=== PATIENT | male | born 1970 | race American Indian/Alaskan Native ===

== ENCOUNTER 2017-03-29 13:26 | Inpatient (IN) | payer MEDICARE, MEDICAID ==
[2017-03-29 13:29] VITALS: BMI 28.5
--- NOTE | 2017-03-29 13:36 | C.PDOC ---
History Of Present Illness 47 y/o male, with PMHx of DM, CHF, anemia, HTN, on dialysis Sunday, , Sunday, presents to ED with c/o SOB onset this week. Patient reports abdominal swelling and bloating, and bilateral lower extremity edema, for the last 2 weeks. Patient notes he was not dialyzed today because he was too short of breath. Notes shortness of breath worsens when walking and laying down. Denies fever, chills, chest pain, nausea, vomiting, or other associated symptoms. Time Seen by Provider: 03/29/17 13:36 Chief Complaint (Nursing): Abdominal Pain History Per: Patient History/Exam Limitations: no limitations Onset/Duration Of Symptoms: Days Current Symptoms Are (Timing): Still Present Location Of Pain/Discomfort: Diffuse Radiation Of Pain To:: None Associated Symptoms: denies: Fever, Chills, Back Pain, Chest Pain, Urinary Symptoms Recent travel outside of the [place]: No Past Medical History Reviewed: Historical Data, Nursing Documentation, Vital Signs Vital Signs: Last Vital Signs Temp 98.1 F 03/29/17 13:37 Pulse 70 03/29/17 13:37 Resp 18 03/29/17 13:37 BP 127/79 03/29/17 13:37 Pulse Ox 98 03/29/17 15:32 - Medical History PMH: Anemia, CHF, COPD, Depression, HTN, Hypercholesterolemia, Peripheral Edema , Chronic Kidney Disease - [facility] Procedures BYPASS LEFT BRACHIAL ARTERY TO UPPER ARM VEIN, OPEN APPROACH (05/24/15) EXTIRPATION OF MATTER FROM L BRACH ART, OPEN APPROACH (05/24/15) INSPECTION OF UPPER INTESTINAL TRACT, ENDO (06/23/16) PERFORMANCE OF URINARY FILTRATION, SINGLE (06/23/16) Family History: States: Unknown Family Hx - Social History Hx Alcohol Use: No Hx Substance Use: No - Immunization History Hx Tetanus Toxoid Vaccination: Yes Hx Influenza Vaccination: Yes Hx Pneumococcal Vaccination: Yes Review Of Systems Constitutional: Negative for: Fever, Chills Cardiovascular: Positive for: Edema (lower extremities). Negative for: Chest Pain, Palpitations Respiratory: Positive for: Shortness of Breath, SOB with Excertion. Negative for: Cough, Wheezing Gastrointestinal: Positive for: Other (abdominal bloating). Negative for: Nausea, Vomiting Musculoskeletal: Negative for: Back Pain Skin: Negative for: Rash Neurological: Negative for: Weakness Psych: Negative for: Anxiety Physical Exam - Physical Exam Appears: Non-toxic Skin: Warm, Dry Head: Normacephalic Eye(s): bilateral: Normal Inspection Oral Mucosa: Moist Neck: Supple Chest: Symmetrical Cardiovascular: Rhythm Regular Respiratory: Rales (bibasilar), No Rhonchi, No Wheezing Gastrointestinal/Abdominal: No Tenderness, Distention, No Guarding, No Rebound Back: Normal Inspection Extremity: Normal ROM, Pedal Edema (pitting edema bilateral), Other (L great toe aputation) Extremity: Bilateral: Atraumatic Pulses: Left Dorsalis Pedis: Normal, Right Dorsalis Pedis: Normal Neurological/Psych: Oriented x3, Normal Speech, Normal Cognition Gait: Unable To Assess ED Course And Treatment - Laboratory Results Result Diagrams: 03/29/17 14:10 03/29/17 14:10 ECG: Interpreted By Me, Viewed By Me ECG Rhythm: Sinus Rhythm (70), Nonspecific Changes O2 Sat by Pulse Oximetry: 98 (RA) Pulse Ox Interpretation: Normal Progress Note: EKG, bloodwork, Protonix. Disposition Discussed With DrJossue: Siva Natarajan Comment: accepted the pt on vt sservice and took over the care at 3:49PM Doctor Will See Patient In The: Hospital Counseled Patient/Family Regarding: Studies Performed, Diagnosis - Disposition Disposition: HOSPITALIZED Disposition Time: 13:36 Condition: GUARDED Forms: [facility] (Albanian) - POA Present On Arrival: Poor Glycemic Control - Clinical Impression Clinical Impression: Abdominal pain, ESRD (end stage renal disease) on dialysis, CHF (congestive heart failure) - Scribe Statement The provider has reviewed the documentation as recorded by the Scribe SM All medical record entries made by the Scribe were at my direction and personally dictated by me. I have reviewed the chart and agree that the record accurately reflects my personal performance of the history, physical exam, medical decision making, and the department course for this patient. I have also personally directed, reviewed, and agree with the discharge instructions and disposition. Decision To Admit - Pt Status Changed To: Hospital Disposition Of: Inpatient - Admit Certification Admit to Inpatient:: After my assessment, the patient will require hospitalization for at least two midnights. This is because of the severity of symptoms shown, intensity of services needed, and/or the medical risk in this patient being treated as an outpatient. - InPatient: Physician Admission Certification:: After my assessment, the patient will require hospitalization for at least two midnights. This is because of the severity of symptoms shown, intensity of services needed, and/or the medical risk in this patient being treated as an outpatient. - . Bed Request Type: Telemetry Admitting Physician: Siva Natarajan Patient Diagnosis: Abdominal pain, ESRD (end stage renal disease) on dialysis, CHF (congestive heart failure)
[2017-03-29 14:16] LABS: BASO % 0.8 % (0.0-2.0); EOS # 0.1 K/uL (0.0-0.7); HEMATOCRIT 33.1 % (35.0-51.0); LYMPH # 0.8 K/uL (1.0-4.3); LYMPH % 14.2 % (20.0-40.0); MEAN CORPUSCULAR HEMOGLOBIN 26.9 pg (27.0-31.0); MEAN CORPUSCULAR HGB CONC 32.3 g/dL (33.0-37.0); MEAN PLATELET VOLUME 10.1 fL (7.2-11.7); MONO # 0.7 K/uL (0.0-0.8); MONO % 12.1 % (0.0-10.0); NRBC % 0.1 % (0.0-2.0); RED CELL DISTRIBUTION WIDTH 17.5 % (11.5-14.5); WHITE BLOOD COUNT 5.5 K/uL (4.8-10.8)
[2017-03-29 14:24] LABS: POTASSIUM 4.5 mmol/L (3.6-5.2)
[2017-03-29 14:27] LABS: ALB/GLOB RATIO 0.7 (1.0-2.1); CALCIUM 7.8 mg/dl (8.6-10.4); TOTAL PROTEIN 8.4 g/dL (6.3-8.3)
[2017-03-29 14:28] LABS: MEAN CELL VOLUME 83.4 fL (80.0-94.0)
[2017-03-29 14:29] LABS: INR 1.3
--- NOTE | 2017-03-29 15:54 | RAD ---
HISTORY: sob COMPARISON: Chest x-ray performed 09/02/15 TECHNIQUE: Chest, one view. FINDINGS: LUNGS: Surgical clips project over the right lung apex. Biapical pleural thickening. Mild patchy opacity within the medial right lower lobe may reflect atelectasis or infiltrate. Mild pulmonary venous congestion. Please note that chest x-ray has limited sensitivity for the detection of pulmonary masses. PLEURA: No significant pleural effusion identified. No definite pneumothorax . CARDIOVASCULAR: Cardiomegaly. OSSEOUS STRUCTURES: Degenerative changes of the spine. VISUALIZED UPPER ABDOMEN: Unremarkable. OTHER FINDINGS: None. IMPRESSION: Mild patchy opacity within the medial right lower lobe may reflect atelectasis or infiltrate. Biapical pleural thickening. Mild pulmonary venous congestion. Cardiomegaly.
[2017-03-29] MEDS: (Novolog) Insulin Aspart, Recombinant 100 u/ml 10 ml vial SC SCH (18:00)
[2017-03-29] MEDS: Insulin Detemir 100 units/ml Vial (Levemir) SC SCH (22:40)
--- NOTE | 2017-03-30 00:06 | CP.PCM.HP ---
History of Present Illness - History of Present Illness History of Present Illness: CC: abdominal pain HPI: 47 y/o male, with PMHx of DM, CHF, anemia, HTN, on dialysis Sunday, , Sunday, presents to ED with c/o SOB onset this week. Patient reports abdominal swelling and bloating, and bilateral lower extremity edema, for the last 2 weeks. Patient notes he was not dialyzed today because he was too short of breath. Notes shortness of breath worsens when walking and laying down. Denies fever, chills, chest pain, nausea, vomiting, or other associated symptoms. Review of Systems - Review of Systems Systems not reviewed;Unavailable: Acuity of Condition - Constitutional Constitutional: Fatigue, Lethargy, Malaise - EENT Eyes: absent: As Per HPI, Blind Spots, Blurred Vision, Change in Vision, Decreased Night Vision, Diplopia, Discharge, Dry Eye, Exophthalmos, Floaters, Irritation, Itchy Eyes, Loss of Peripheral Vision, Pain, Photophobia, Requires Corrective Lenses, Sees Flashes, Spots in Vision, Tunnel Vision, Other Visual Disturbances, Loss of Vision, Other Nose/Mouth/Throat: absent: As Per HPI, Epistaxis, Nasal Congestion, Nasal Discharge, Nasal Obstruction, Nasal Trauma, Nose Pain, Post Nasal Drip, Sinus Pain, Sinus Pressure, Bleeding Gums, Change in Voice, Dental Pain, Dry Mouth, Dysphagia, Halitosis, Hoarsness, Lip Swelling, Mouth Lesions, Mouth Pain, Odynophagia, Sore Throat, Throat Swelling, Tongue Swelling, Facial Pain, Neck Pain, Neck Mass, Other - Cardiovascular Cardiovascular: Dyspnea on Exertion, Pedal Edema. absent: As Per HPI, Acrocyanosis, Chest Pain, Chest Pain at Rest, Chest Pain with Activity, Claudication, Diaphoresis, Dyspnea, Edema, Irregular Heart Rhythm, Pain Radiating to Arm/Neck/Jaw, Leg Edema, Leg Ulcers, Lightheadedness, Orthopnea, Palpitations, Paroxysmal Nocturnal Dyspnea, Radiating Pain, Rapid Heart Rate, Slow Heart Rate, Syncope, Other - Respiratory Respiratory: Dyspnea on Exertion. absent: As Per HPI, Cough, Dyspnea, Hemoptysis, Wheezing, Snoring, Stridor, Pain on Inspiration, Chest Congestion, Excessive Mucous Production, Change in Mucous Color, Pain with Coughing, Other - Gastrointestinal Gastrointestinal: Abdominal Pain Past Patient History - Past Medical History & Family History Past Medical History?: Yes - Past Social History Smoking Status: Former Smoker - CARDIAC Hx Congestive Heart Failure: Yes Hx Hypercholesterolemia: Yes Hx Hypertension: Yes Hx Peripheral Edema: Yes - PULMONARY Hx Chronic Obstructive Pulmonary Disease (COPD): Yes - NEUROLOGICAL Hx Neurological Disorder: No - HEENT Hx HEENT Problems: Yes Hx Blind: Yes (BLIND LEFT EYE) Hx Cataracts: Yes - RENAL Date of Last Dialysis Treatment: 03/29/17 - ENDOCRINE/METABOLIC Hx Endocrine Disorders: Yes Hx Diabetes Mellitus Type 2: Yes - HEMATOLOGICAL/ONCOLOGICAL Hx Anemia: Yes - INTEGUMENTARY Hx Dermatological Problems: Yes (DARK SPOTS GENERALIZED) - MUSCULOSKELETAL/RHEUMATOLOGICAL Hx Falls: No - GASTROINTESTINAL Hx Gastrointestinal Disorders: No - GENITOURINARY/GYNECOLOGICAL Hx Genitourinary Disorders: Yes Other/Comment: Kidney disease - PSYCHIATRIC Hx Substance Use: No - SURGICAL HISTORY Hx Surgeries: Yes - ANESTHESIA Hx Anesthesia: Yes Hx Anesthesia Reactions: No Hx Malignant Hyperthermia: No Meds Allergies/Adverse Reactions: Allergies Allergy/AdvReac Type Severity Reaction Status Date / Time mushroom Allergy Intermediate RASH Verified 03/29/17 13:30 Physical Exam - Constitutional Appears: No Acute Distress - Head Exam Head Exam: ATRAUMATIC, NORMAL INSPECTION, NORMOCEPHALIC - Eye Exam Eye Exam: EOMI, Normal appearance, PERRL Pupil Exam: NORMAL ACCOMODATION, PERRL - Respiratory Exam Respiratory Exam: Decreased Breath Sounds, Rales, Rhonchi - Cardiovascular Exam Cardiovascular Exam: REGULAR RHYTHM - GI/Abdominal Exam GI & Abdominal Exam: Normal Bowel Sounds, Soft, Tenderness - Extremities Exam Extremities exam: Positive for: pedal edema Additional comments: 2+ edema left big toe amputation Results - Vital Signs Recent Vital Signs: Last Vital Signs Temp 98.2 F 03/29/17 21:00 Pulse 71 03/29/17 21:15 Resp 18 03/29/17 21:00 BP 139/87 03/29/17 21:00 Pulse Ox 100 03/29/17 21:00 - Labs Result Diagrams: 03/29/17 14:10 03/29/17 14:10 Labs: Laboratory Results - last 24 hr 03/29/17 03/29/17 03/29/17 14:10 14:10 14:10 WBC 5.5 RBC 3.97 L Hgb 10.7 L Hct 33.1 L MCV 83.4 D MCH 26.9 L MCHC 32.3 L RDW 17.5 H Plt Count 115 L D MPV 10.1 Neut % (Auto) 70.9 Lymph % (Auto) 14.2 L [place] % (Auto) 12.1 H Eos % (Auto) 2.0 Baso % (Auto) 0.8 Neut # 3.9 Lymph # 0.8 L [place] # 0.7 Eos # 0.1 Baso # 0.0 Differential Comment PT 14.1 H INR 1.3 APTT 36 H Sodium Potassium Chloride Carbon Dioxide Anion Gap BUN Creatinine Est GFR ( Amer) Est GFR (Non-Af Amer) POC Glucose (mg/dL) Random Glucose Calcium Total Bilirubin AST ALT Alkaline Phosphatase Ammonia 21 NT-Pro-B Natriuret Pep Total Protein Albumin Globulin Albumin/Globulin Ratio Lipase 03/29/17 03/29/17 14:10 20:19 WBC RBC Hgb Hct MCV MCH MCHC RDW Plt Count MPV Neut % (Auto) Lymph % (Auto) [place] % (Auto) Eos % (Auto) Baso % (Auto) Neut # Lymph # [place] # Eos # Baso # Differential Comment PT INR APTT Sodium 135 Potassium 4.5 Chloride 94 L Carbon Dioxide 23 Anion Gap 21 H BUN 56 H Creatinine 9.6 H* Est GFR ( Amer) 7 Est GFR (Non-Af Amer) 6 POC Glucose (mg/dL) 163 H Random Glucose 240 H Calcium 7.8 L Total Bilirubin 2.0 H AST 27 ALT 36 Alkaline Phosphatase 442 H Ammonia NT-Pro-B Natriuret Pep 31407 H Total Protein 8.4 H Albumin 3.5 D Globulin 5.0 H Albumin/Globulin Ratio 0.7 L Lipase 18 L Assessment & Plan (1) Abdominal pain Status: Acute (2) CHF (congestive heart failure) Status: Acute (3) ESRD (end stage renal disease) on dialysis Status: Acute
[2017-03-30] MEDS: (Novolog) Insulin Aspart, Recombinant 100 u/ml 10 ml vial SC SCH ×2 (09:15→18:00)
[2017-03-30] MEDS ORDERED: DULOXETINE HCL 60 MG PO SCH (10:00)
[2017-03-30] MEDS: Sevelamer Carb 0.8 gm/Packet PO SCH (10:08)
[2017-03-30] MEDS: Multivitamin Vitamin B Complex (Nephro-Vite) Tab PO SCH (10:12)
--- NOTE | 2017-03-30 18:43 | US ---
HISTORY: abdominal distension COMPARISON: None. TECHNIQUE: Sonographic evaluation of the abdomen. FINDINGS: LIVER: hepatomegaly. The liver measures 24.9 cm craniocaudal. The liver is diffusely increased in echogenicity consistent with fatty infiltration. The contour is nodular. There is no mass. There is no intrahepatic biliary dilatation. GALLBLADDER: The gallbladder is contracted. The gallbladder wall is thickened up to 5 mm. This is nonspecific. There is no cholelithiasis. There is no sonographic Med[place] sign. COMMON BILE DUCT: Measures 3 mm. No stones. No dilatation. PANCREAS: Limited visualization. RIGHT KIDNEY: Measures 8.5cm. Diffusely echogenic. No mass, calculus or hydronephrosis. LEFT KIDNEY: Measures 9.3cm. Diffusely echogenic. No mass, calculus or hydronephrosis. SPLEEN: Normal in size and contour. No mass. AORTA: No aneurysmal dilatation. IVC: Unremarkable. OTHER FINDINGS: None. IMPRESSION: Hepatosplenomegaly. Hepatic cirrhosis. Ascites. Bilaterally echogenic kidneys. Consistent with diffuse medical renal disease. No evidence of cholelithiasis.
[2017-03-30] MEDS: Insulin Detemir 100 units/ml Vial (Levemir) SC SCH (22:24)
--- NOTE | 2017-03-30 22:58 | CP.PCM.PN ---
Subjective - Date & Time of Evaluation Date of Evaluation: 03/30/17 Time of Evaluation: 20:00 - Subjective Subjective: pt seen & examined, on HD, he is for ultrasound abdomen as abdomen is distented Objective - Vital Signs/Intake and Output Vital Signs (last 24 hours): Temp Pulse Resp BP Pulse Ox 98.4 F 67 20 129/78 93 L 03/30/17 17:00 03/30/17 18:30 03/30/17 17:00 03/30/17 17:00 03/30/17 17:00 - Medications Medications: Current Medications Amlodipine Besylate (Norvasc) 10 mg PO DAILY [facility] Last Admin: 03/30/17 09:16 Dose: 10 mg Clonidine HCl (Catapres-Tts3 0.3 Mg/24 Hr) 1 patch TD QWK [facility] Clopidogrel Bisulfate (Plavix) 75 mg PO DAILY [facility] Last Admin: 03/30/17 09:16 Dose: 75 mg Epoetin Tyree (Procrit) 4,000 unit SC TTS [facility] Heparin Sodium (Porcine) (Heparin) 5,000 units SC Q8 [facility] Last Admin: 03/30/17 22:24 Dose: 5,000 units Hydrochlorothiazide (Hydrodiuril) 25 mg PO DAILY [facility] Last Admin: 03/30/17 09:16 Dose: 25 mg Insulin Aspart (Novolog) 4 unit SC TID [facility] Last Admin: 03/30/17 18:00 Dose: Not Given Insulin Detemir (Levemir) 14 unit SC HS [facility] Last Admin: 03/30/17 22:24 Dose: 14 unit Isosorbide Mononitrate (Imdur) 60 mg PO DAILY [facility] Last Admin: 03/30/17 09:16 Dose: 60 mg Losartan Potassium (Cozaar) 100 mg PO DAILY [facility] Last Admin: 03/30/17 09:16 Dose: 100 mg Nebivolol (Bystolic) 10 mg PO DAILY [facility] Last Admin: 03/30/17 10:07 Dose: 10 mg Pregabalin (Lyrica) 100 mg PO BID [facility] Last Admin: 03/30/17 19:02 Dose: 100 mg Risperidone (Risperdal Tab) 0.25 mg PO [facility] Last Admin: 03/30/17 22:25 Dose: 0.25 mg Rosuvastatin Calcium (Crestor) 10 mg PO [facility] Last Admin: 03/30/17 22:23 Dose: 10 mg Sevelamer Carbonate (Renvela) 1.6 gm PO DAILY [facility] Last Admin: 03/30/17 10:08 Dose: 1.6 gm Vitamin B Complex/Vit C/Folic Acid (Nephro-Juan Manuel) 1 tab PO DAILY [facility] Last Admin: 03/30/17 10:12 Dose: 1 tab - Labs Labs: 03/29/17 14:10 03/29/17 14:10 PT 14.1 SECONDS (9.7-12.2) H 03/29/17 14:10 INR 1.3 03/29/17 14:10 APTT 36 SECONDS (21-34) H 03/29/17 14:10 - Constitutional Appears: No Acute Distress - Head Exam Head Exam: ATRAUMATIC, NORMAL INSPECTION, NORMOCEPHALIC - Eye Exam Eye Exam: EOMI, Normal appearance, PERRL Pupil Exam: NORMAL ACCOMODATION, PERRL - Respiratory Exam Respiratory Exam: Clear to Ausculation Bilateral, NORMAL BREATHING PATTERN - Cardiovascular Exam Cardiovascular Exam: REGULAR RHYTHM, +S1, +S2. absent: Murmur - GI/Abdominal Exam GI & Abdominal Exam: Distended, Normal Bowel Sounds - Rectal Exam Rectal Exam: Deferred Assessment and Plan (1) Abdominal pain Status: Acute (2) CHF (congestive heart failure) Status: Acute (3) ESRD (end stage renal disease) on dialysis Status: Acute
[2017-03-31] MEDS ORDERED: EPOETIN ALFA 4,000 UNIT/ML ML Dialysis SC SCH (10:00)
[2017-03-31 10:23] LABS: CHLORIDE 97 mmol/L (98-107)
[2017-03-31 10:24] LABS: POTASSIUM 4.2 mmol/L (3.6-5.2); SODIUM 135 mmol/L (132-148)
[2017-03-31 10:26] LABS: GFR AFRICAN-AMERICAN 10
[2017-03-31 10:27] LABS: BLOOD UREA NITROGEN 43 mg/dL (9-20); CALCIUM 7.9 mg/dl (8.6-10.4); CARBON DIOXIDE 25 mmol/L (22-30); GLUCOSE,RANDOM 116 mg/dL (75-110)
[2017-03-31] MEDS: EPOETIN ALFA 4,000 UNIT/ML ML Dialysis IV SCH (11:26)
[2017-03-31] MEDS: Sevelamer Carb 0.8 gm/Packet PO SCH (12:50)
[2017-03-31] MEDS: (Novolog) Insulin Aspart, Recombinant 100 u/ml 10 ml vial SC SCH ×4 (12:50→18:02)
[2017-03-31] MEDS: Multivitamin Vitamin B Complex (Nephro-Vite) Tab PO SCH (12:50)
--- NOTE | 2017-03-31 14:57 | RAD ---
HISTORY: abdominal distension COMPARISON: No prior. FINDINGS: BOWEL: Mildly dilated small and large bowel loops seen BONES: Normal. OTHER FINDINGS: None. IMPRESSION: Mildly dilated small and large bowel loops noted. No evidence of high-grade bowel obstruction.
--- NOTE | 2017-03-31 21:22 | CP.PCM.PN ---
Subjective - Date & Time of Evaluation Date of Evaluation: 03/31/17 Time of Evaluation: 17:00 - Subjective Subjective: pt has large ascites in abdomen , less short of breath, pt is for GI consult, on HD Objective - Vital Signs/Intake and Output Vital Signs (last 24 hours): Temp Pulse Resp BP Pulse Ox 98.8 F 79 20 152/85 H 95 03/31/17 15:31 03/31/17 18:00 03/31/17 15:31 03/31/17 15:31 03/31/17 15:31 Intake and Output: 03/31/17 04/01/17 18:59 06:59 Intake Total 240 Balance 240 - Medications Medications: Current Medications Amlodipine Besylate (Norvasc) 10 mg PO DAILY [facility] Last Admin: 03/31/17 13:51 Dose: 10 mg Clonidine HCl (Catapres-Tts3 0.3 Mg/24 Hr) 1 patch TD QWK [facility] Clopidogrel Bisulfate (Plavix) 75 mg PO DAILY [facility] Last Admin: 03/31/17 12:50 Dose: Not Given Epoetin Tyree (Procrit) 4,000 unit IV TTS [facility] Last Admin: 03/31/17 11:26 Dose: 4,000 unit Heparin Sodium (Porcine) (Heparin) 5,000 units SC Q8 [facility] Last Admin: 03/31/17 13:52 Dose: 5,000 units Hydrochlorothiazide (Hydrodiuril) 25 mg PO DAILY [facility] Last Admin: 03/31/17 13:45 Dose: 25 mg Insulin Aspart (Novolog) 4 unit SC TID [facility] Last Admin: 03/31/17 18:02 Dose: Not Given Insulin Detemir (Levemir) 14 unit SC HS [facility] Last Admin: 03/30/17 22:24 Dose: 14 unit Isosorbide Mononitrate (Imdur) 60 mg PO DAILY [facility] Last Admin: 03/31/17 13:45 Dose: 60 mg Losartan Potassium (Cozaar) 100 mg PO DAILY [facility] Last Admin: 03/31/17 13:44 Dose: 100 mg Nebivolol (Bystolic) 10 mg PO DAILY [facility] Last Admin: 03/31/17 12:49 Dose: Not Given Pregabalin (Lyrica) 100 mg PO BID [facility] Last Admin: 03/31/17 18:02 Dose: 100 mg Risperidone (Risperdal Tab) 0.25 mg PO HS [facility] Last Admin: 03/30/17 22:25 Dose: 0.25 mg Rosuvastatin Calcium (Crestor) 10 mg PO HS [facility] Last Admin: 03/30/17 22:23 Dose: 10 mg Sevelamer Carbonate (Renvela) 1.6 gm PO DAILY [facility] Last Admin: 03/31/17 12:50 Dose: Not Given Vitamin B Complex/Vit C/Folic Acid (Nephro-Juan Manuel) 1 tab PO DAILY [facility] Last Admin: 03/31/17 12:50 Dose: Not Given - Labs Labs: 03/29/17 14:10 03/31/17 10:03 PT 14.1 SECONDS (9.7-12.2) H 03/29/17 14:10 INR 1.3 03/29/17 14:10 APTT 36 SECONDS (21-34) H 03/29/17 14:10 - Constitutional Appears: No Acute Distress - Head Exam Head Exam: ATRAUMATIC, NORMAL INSPECTION, NORMOCEPHALIC - Eye Exam Eye Exam: EOMI, Normal appearance, PERRL Pupil Exam: NORMAL ACCOMODATION, PERRL - Respiratory Exam Respiratory Exam: Clear to Ausculation Bilateral, NORMAL BREATHING PATTERN - Cardiovascular Exam Cardiovascular Exam: REGULAR RHYTHM, +S1, +S2. absent: Murmur - GI/Abdominal Exam GI & Abdominal Exam: Distended, Normal Bowel Sounds - Rectal Exam Rectal Exam: NORMAL INSPECTION Assessment and Plan (1) Abdominal pain Status: Acute (2) CHF (congestive heart failure) Status: Acute (3) ESRD (end stage renal disease) on dialysis Status: Acute
[2017-03-31] MEDS: Insulin Detemir 100 units/ml Vial (Levemir) SC SCH (21:47)
[2017-03-31] MEDS ORDERED: Belladonna-Phenobarbital PO STA (22:31)
--- NOTE | 2017-04-01 02:04 | CP.PCM.CON ---
History of Present Illness - History of Present Illness History of Present Illness: 47 y/o male, with PMHx of DM, CHF, anemia, HTN, ESRD on dialysis Sunday, , Sunday, has not missed any recent sessions is admitted with sob, chf and abdominal distension. also reports assoc edema for 2 weeks. he wass dialysed on admission on . He reports his breathing slighlty improved but still persistent and abdominal distension is the same. no fever or chills. no new med. no nausea or vomiting Review of Systems - Review of Systems All systems: reviewed and no additional remarkable complaints except Past Patient History - Past Medical History & Family History Past Medical History?: Yes - Past Social History Smoking Status: Former Smoker - CARDIAC Hx Congestive Heart Failure: Yes Hx Hypercholesterolemia: Yes Hx Hypertension: Yes - PULMONARY Hx Chronic Obstructive Pulmonary Disease (COPD): Yes - NEUROLOGICAL Hx Neurological Disorder: No - HEENT Hx HEENT Problems: Yes Hx Blind: Yes (BLIND LEFT EYE) Hx Cataracts: Yes - RENAL Date of Last Dialysis Treatment: 03/29/17 - ENDOCRINE/METABOLIC Hx Diabetes Mellitus Type 2: Yes - HEMATOLOGICAL/ONCOLOGICAL Hx Anemia: Yes - INTEGUMENTARY Hx Dermatological Problems: Yes (DARK SPOTS GENERALIZED) - MUSCULOSKELETAL/RHEUMATOLOGICAL Hx Falls: No - GASTROINTESTINAL Hx Gastrointestinal Disorders: No - GENITOURINARY/GYNECOLOGICAL Hx Genitourinary Disorders: Yes Other/Comment: Kidney disease - PSYCHIATRIC Hx Substance Use: No - SURGICAL HISTORY Hx Surgeries: Yes - ANESTHESIA Hx Anesthesia: Yes Hx Anesthesia Reactions: No Hx Malignant Hyperthermia: No Meds Allergies/Adverse Reactions: Allergies Allergy/AdvReac Type Severity Reaction Status Date / Time mushroom Allergy Intermediate RASH Verified 03/29/17 13:30 - Medications Medications: Current Medications Amlodipine Besylate (Norvasc) 10 mg PO DAILY [facility] Last Admin: 03/31/17 13:51 Dose: 10 mg Belladonna/Phenobarbital () 1 tab PO Q8 [facility] Clonidine HCl (Catapres-Tts3 0.3 Mg/24 Hr) 1 patch TD QWK [facility] Clopidogrel Bisulfate (Plavix) 75 mg PO DAILY [facility] Last Admin: 03/31/17 12:50 Dose: Not Given Epoetin Tyree (Procrit) 4,000 unit IV TTS [facility] Last Admin: 03/31/17 11:26 Dose: 4,000 unit Heparin Sodium (Porcine) (Heparin) 5,000 units SC Q8 [facility] Last Admin: 03/31/17 21:46 Dose: 5,000 units Hydrochlorothiazide (Hydrodiuril) 25 mg PO DAILY [facility] Last Admin: 03/31/17 13:45 Dose: 25 mg Insulin Aspart (Novolog) 4 unit SC TID [facility] Last Admin: 03/31/17 18:02 Dose: Not Given Insulin Detemir (Levemir) 14 unit SC HS [facility] Last Admin: 03/31/17 21:47 Dose: 14 unit Isosorbide Mononitrate (Imdur) 60 mg PO DAILY [facility] Last Admin: 03/31/17 13:45 Dose: 60 mg Losartan Potassium (Cozaar) 100 mg PO DAILY [facility] Last Admin: 03/31/17 13:44 Dose: 100 mg Nebivolol (Bystolic) 10 mg PO DAILY [facility] Last Admin: 03/31/17 12:49 Dose: Not Given Pregabalin (Lyrica) 100 mg PO BID [facility] Last Admin: 03/31/17 18:02 Dose: 100 mg Risperidone (Risperdal Tab) 0.25 mg PO [facility] Last Admin: 03/31/17 21:46 Dose: 0.25 mg Rosuvastatin Calcium (Crestor) 10 mg PO [facility] Last Admin: 03/31/17 21:46 Dose: 10 mg Sevelamer Carbonate (Renvela) 1.6 gm PO DAILY [facility] Last Admin: 03/31/17 12:50 Dose: Not Given Vitamin B Complex/Vit C/Folic Acid (Nephro-Juan Manuel) 1 tab PO DAILY [facility] Last Admin: 03/31/17 12:50 Dose: Not Given Physical Exam - Constitutional Appears: Non-toxic, Older Than Stated Age Additional comments: lying in bed, mildly SOB on exam - Head Exam Head Exam: NORMAL INSPECTION - Eye Exam Eye Exam: Normal appearance - ENT Exam ENT Exam: Mucous Membranes Moist - Respiratory Exam Respiratory Exam: Decreased Breath Sounds, Rales - Cardiovascular Exam Cardiovascular Exam: +S1, +S2 - GI/Abdominal Exam GI & Abdominal Exam: Distended, Soft - Extremities Exam Extremities exam: Positive for: pedal edema - Neurological Exam Neurological exam: Alert, Oriented x3 - Psychiatric Exam Psychiatric exam: Normal Mood - Skin Skin Exam: Dry, Intact Results - Vital Signs Recent Vital Signs: Last Vital Signs Temp 99.2 F 03/31/17 23:50 Pulse 84 03/31/17 23:50 Resp 20 03/31/17 23:50 BP 173/83 H 03/31/17 23:50 Pulse Ox 95 03/31/17 23:50 - Labs Result Diagrams: 03/29/17 14:10 03/31/17 10:03 Labs: Laboratory Results - last 24 hr 03/31/17 03/31/17 03/31/17 06:44 10:03 11:12 Sodium 135 Potassium 4.2 Chloride 97 L Carbon Dioxide 25 Anion Gap 18 BUN 43 H Creatinine 7.1 H Est GFR ( Amer) 10 Est GFR (Non-Af Amer) 8 POC Glucose (mg/dL) 92 109 Random Glucose 116 H Calcium 7.9 L 03/31/17 03/31/17 16:36 21:09 Sodium Potassium Chloride Carbon Dioxide Anion Gap BUN Creatinine Est GFR ( Amer) Est GFR (Non-Af Amer) POC Glucose (mg/dL) 90 185 H Random Glucose Calcium Assessment & Plan - Assessment and Plan (Free Text) Plan: ESRD/DM/HTN/ANemia/Sec hyperpth/abdominal distension HD tts, will do extra isolated UF session today [place] reviewed anemia: monitor, MARIANNE with hd as needed sec hyperpth: monitor phos levels Abdominal distension: recommend abdominal usg and series bp continue current meds discussed with Dr Natarajan over phone
--- NOTE | 2017-04-01 02:08 | CP.PCM.PN ---
Subjective - Date & Time of Evaluation Date of Evaluation: 03/31/17 Time of Evaluation: 15:00 - Subjective Subjective: RENAL FOLLOW UP NOTE no events overnight sob is better PE:nad ao times 3 heent normal op moist s1s2 present decreased bs at bases abd distended psy cooperative skin normal A&P: ESRD/DM/HTN/ANemia/Sec hyperpth/abdominal distension HD tts, today per schedule lytes reviewed anemia: monitor sec hyperpth: monitor phos levels Abdominal distension: imaging shows ascites and cirrhosis; GI consulted bp continue current meds Objective - Vital Signs/Intake and Output Vital Signs (last 24 hours): Temp Pulse Resp BP Pulse Ox 99.2 F 84 20 173/83 H 95 03/31/17 23:50 03/31/17 23:50 03/31/17 23:50 03/31/17 23:50 03/31/17 23:50 Intake and Output: 03/31/17 04/01/17 18:59 06:59 Intake Total 240 Balance 240 - Medications Medications: Current Medications Amlodipine Besylate (Norvasc) 10 mg PO DAILY [facility] Last Admin: 03/31/17 13:51 Dose: 10 mg Belladonna/Phenobarbital () 1 tab PO Q8 [facility] Clonidine HCl (Catapres-Tts3 0.3 Mg/24 Hr) 1 patch TD QWK [facility] Clopidogrel Bisulfate (Plavix) 75 mg PO DAILY [facility] Last Admin: 03/31/17 12:50 Dose: Not Given Epoetin Tyree (Procrit) 4,000 unit IV TTS [facility] Last Admin: 03/31/17 11:26 Dose: 4,000 unit Heparin Sodium (Porcine) (Heparin) 5,000 units SC Q8 [facility] Last Admin: 03/31/17 21:46 Dose: 5,000 units Hydrochlorothiazide (Hydrodiuril) 25 mg PO DAILY [facility] Last Admin: 03/31/17 13:45 Dose: 25 mg Insulin Aspart (Novolog) 4 unit SC TID [facility] Last Admin: 03/31/17 18:02 Dose: Not Given Insulin Detemir (Levemir) 14 unit SC HS [facility] Last Admin: 03/31/17 21:47 Dose: 14 unit Isosorbide Mononitrate (Imdur) 60 mg PO DAILY [facility] Last Admin: 03/31/17 13:45 Dose: 60 mg Losartan Potassium (Cozaar) 100 mg PO DAILY [facility] Last Admin: 03/31/17 13:44 Dose: 100 mg Nebivolol (Bystolic) 10 mg PO DAILY [facility] Last Admin: 03/31/17 12:49 Dose: Not Given Pregabalin (Lyrica) 100 mg PO BID [facility] Last Admin: 03/31/17 18:02 Dose: 100 mg Risperidone (Risperdal Tab) 0.25 mg PO HS [facility] Last Admin: 03/31/17 21:46 Dose: 0.25 mg Rosuvastatin Calcium (Crestor) 10 mg PO HS [facility] Last Admin: 03/31/17 21:46 Dose: 10 mg Sevelamer Carbonate (Renvela) 1.6 gm PO DAILY [facility] Last Admin: 03/31/17 12:50 Dose: Not Given Vitamin B Complex/Vit C/Folic Acid (Nephro-Juan Manuel) 1 tab PO DAILY [facility] Last Admin: 03/31/17 12:50 Dose: Not Given - Labs Labs: 03/29/17 14:10 03/31/17 10:03 PT 14.1 SECONDS (9.7-12.2) H 03/29/17 14:10 INR 1.3 03/29/17 14:10 APTT 36 SECONDS (21-34) H 03/29/17 14:10
[2017-04-01] MEDS: Belladonna-Phenobarbital PO SCH ×3 (05:37→22:42)
[2017-04-01 09:36] LABS: CARCINOEMBRYONIC ANTIGEN 5.7 ng/mL (0-3.0)
[2017-04-01] MEDS: Sevelamer Carb 0.8 gm/Packet PO SCH (11:18)
[2017-04-01] MEDS: (Novolog) Insulin Aspart, Recombinant 100 u/ml 10 ml vial SC SCH ×4 (11:24→17:32)
[2017-04-01] MEDS: Multivitamin Vitamin B Complex (Nephro-Vite) Tab PO SCH (12:23)
--- NOTE | 2017-04-01 14:13 | PN ---
DATE: LOCATION: Room 670, bed B. SUBJECTIVE: This is a 47-year-old male seen and examined for GI consultation on 03/31/2017 as requested by the admitting medical staff, re-examined again today with the nursing staff in the floor and rounds. The patient had nausea and bowel movement last night and his abdominal distention is much less; however, still has intermittent period of abdominal mild pain and tenderness. The entire chart is reviewed including, but not limited to most recent lab and Radiology study results, current and the previous medication list, current and the previous medical events and today's blood glucose level of 76. Hepatitis C antibody results still pending. Abdominal ultrasound report reviewed again, as well as, actual films, as well as abdominal x-ray. The patient is tolerating somewhat oral intake well this morning. PHYSICAL EXAMINATION: GENERAL: A 47-year-old male awake, alert, oriented. VITAL SIGNS: Afebrile with pulse of 84, respiratory rate 20 to 22, and blood pressure 164/80. HEENT: Showed pale dry oral mucous membrane. Mild icteric sclerae bilaterally. HEART: Positive S1 and S2. ABDOMEN: Soft. Bowel sounds are hypoactive with mild abdominal distention and generalized tenderness. No mass or organomegaly. EXTREMITIES: Without significant clubbing or cyanosis, but has mild edematous changes. NEUROLOGIC: No new reported neurological deficits, sensory or motor. IMPRESSION: 1. An ileus of unclear etiology, however, that is associated with ascites secondary to liver cirrhosis, to rule out possible acute viral enteritis, has no evidence of actual obstruction of the small or large bowel by radiology study results, the patient had bowel movement as well as positive bowel sounds. 2. Known history of, but not limited to hypertension, chronic obstructive pulmonary disease, chronic renal disorder with congestive heart failure and depression. 3. Reported recently done upper endoscopy on 06/2016 indicative most likely of acute gastritis. 4. Poorly controlled diabetes mellitus. 5. Anemia with thrombocytopenia and low indices highly suggestive hypochromic macrocytic anemia, the possibility of gastrointestinal blood loss was raised. 6. Coagulopathy, probably secondary to liver disease. 7. Mild jaundice with elevated total bilirubin as well as alkaline phosphatase. SUGGESTIONS: 1. I agree with your plan. 2. Cancer markers. 3. Reviewed serum lipase and amylase level. 4. Sectional abdominal and pelvic CAT scan. 5. Followup on hepatitis profile. 6. Further recommendation to follow. Thank you for letting me to participate in your patient's case management. Geno Shen MD cc: Geno Shen MD
--- NOTE | 2017-04-01 18:25 | CARD ---
APPROVED REPORT EKG Measurement Heart [id number] <Conclusion> Normal sinus rhythm Normal ECG
--- NOTE | 2017-04-01 21:43 | CP.PCM.PN ---
Subjective - Date & Time of Evaluation Date of Evaluation: 04/01/17 Time of Evaluation: 18:10 - Subjective Subjective: pt is seen by GI and Renal. abdomen remains distented, cirhosisi f liver etiology unclear, is for Gi consult, pt need paracentesis both therapeutic and diagnostic Objective - Vital Signs/Intake and Output Vital Signs (last 24 hours): Temp Pulse Resp BP Pulse Ox 98.9 F 76 20 162/87 H 94 L 04/01/17 15:26 04/01/17 18:24 04/01/17 15:26 04/01/17 18:24 04/01/17 15:26 Intake and Output: 04/01/17 04/02/17 18:59 06:59 Intake Total 240 Balance 240 - Medications Medications: Current Medications Amlodipine Besylate (Norvasc) 10 mg PO DAILY [facility] Last Admin: 04/01/17 11:16 Dose: 10 mg Belladonna/Phenobarbital () 1 tab PO Q8 [facility] Last Admin: 04/01/17 13:51 Dose: 1 tab Clonidine HCl (Catapres-Tts3 0.3 Mg/24 Hr) 1 patch TD QWK [facility] Clopidogrel Bisulfate (Plavix) 75 mg PO DAILY [facility] Last Admin: 04/01/17 11:16 Dose: 75 mg Epoetin Tyree (Procrit) 4,000 unit IV TTS [facility] Last Admin: 03/31/17 11:26 Dose: 4,000 unit Heparin Sodium (Porcine) (Heparin) 5,000 units SC Q8 [facility] Last Admin: 04/01/17 13:54 Dose: 5,000 units Hydrochlorothiazide (Hydrodiuril) 25 mg PO DAILY [facility] Last Admin: 04/01/17 11:17 Dose: 25 mg Insulin Aspart (Novolog) 4 unit SC TID [facility] Last Admin: 04/01/17 17:32 Dose: Not Given Insulin Detemir (Levemir) 14 unit SC HS [facility] Last Admin: 03/31/17 21:47 Dose: 14 unit Isosorbide Mononitrate (Imdur) 60 mg PO DAILY [facility] Last Admin: 04/01/17 11:16 Dose: 60 mg Losartan Potassium (Cozaar) 100 mg PO DAILY [facility] Last Admin: 04/01/17 11:17 Dose: 100 mg Nebivolol (Bystolic) 10 mg PO DAILY [facility] Last Admin: 04/01/17 11:18 Dose: 10 mg Pregabalin (Lyrica) 100 mg PO BID [facility] Last Admin: 04/01/17 18:22 Dose: 100 mg Risperidone (Risperdal Tab) 0.25 mg PO HS [facility] Last Admin: 03/31/17 21:46 Dose: 0.25 mg Rosuvastatin Calcium (Crestor) 10 mg PO HS [facility] Last Admin: 03/31/17 21:46 Dose: 10 mg Sevelamer Carbonate (Renvela) 1.6 gm PO DAILY [facility] Last Admin: 04/01/17 11:18 Dose: 1.6 gm Vitamin B Complex/Vit C/Folic Acid (Nephro-Juan Manuel) 1 tab PO DAILY [facility] Last Admin: 04/01/17 12:23 Dose: 1 tab - Labs Labs: 03/29/17 14:10 03/31/17 10:03 PT 14.1 SECONDS (9.7-12.2) H 03/29/17 14:10 INR 1.3 03/29/17 14:10 APTT 36 SECONDS (21-34) H 03/29/17 14:10 - Constitutional Appears: No Acute Distress - Head Exam Head Exam: ATRAUMATIC, NORMAL INSPECTION, NORMOCEPHALIC - Eye Exam Eye Exam: EOMI, Normal appearance, PERRL Pupil Exam: NORMAL ACCOMODATION, PERRL - Respiratory Exam Respiratory Exam: Clear to Ausculation Bilateral, NORMAL BREATHING PATTERN - Cardiovascular Exam Cardiovascular Exam: REGULAR RHYTHM, +S1, +S2. absent: Murmur - GI/Abdominal Exam GI & Abdominal Exam: Distended - Rectal Exam Rectal Exam: Deferred Assessment and Plan (1) Abdominal pain Status: Acute (2) CHF (congestive heart failure) Status: Acute (3) ESRD (end stage renal disease) on dialysis Status: Acute
[2017-04-01] MEDS: Insulin Detemir 100 units/ml Vial (Levemir) SC SCH (22:42)
[2017-04-02] MEDS: Belladonna-Phenobarbital PO SCH ×3 (05:05→22:27)
[2017-04-02] MEDS ORDERED: Dextrose 50% SYRINGE Inj (50 ml) IV PRN (06:40)
[2017-04-02] MEDS ORDERED: Glucagon Recombinant 1 mg Inj IM PRN (06:40)
[2017-04-02] MEDS ORDERED: Dextrose 50% SYRINGE Inj (50 ml) ONE (07:04)
--- NOTE | 2017-04-02 09:16 | CP.PCM.PN ---
Subjective - Date & Time of Evaluation Date of Evaluation: 04/02/17 Time of Evaluation: 09:13 - Subjective Subjective: Patient and bed Still complaining of some shortness of breath No nausea or vomiting Objective - Vital Signs/Intake and Output Vital Signs (last 24 hours): Temp Pulse Resp BP Pulse Ox 97.9 F 71 20 150/78 98 04/02/17 08:31 04/02/17 08:31 04/02/17 08:31 04/02/17 08:31 04/02/17 08:31 - Medications Medications: Current Medications Amlodipine Besylate (Norvasc) 10 mg PO DAILY [facility] Last Admin: 04/01/17 11:16 Dose: 10 mg Belladonna/Phenobarbital () 1 tab PO Q8 [facility] Last Admin: 04/02/17 05:05 Dose: 1 tab Clonidine HCl (Catapres-Tts3 0.3 Mg/24 Hr) 1 patch TD QWK [facility] Clopidogrel Bisulfate (Plavix) 75 mg PO DAILY [facility] Last Admin: 04/01/17 11:16 Dose: 75 mg Dextrose (Dextrose 50% Inj) 0 ml IV STAT PRN; Protocol PRN Reason: Hyglycemia Protocol Last Admin: 04/02/17 07:05 Dose: 50 ml Dextrose (Glutose 15) 0 gm PO ONCE PRN; Protocol PRN Reason: Hypoglycemia Protocol Epoetin Tyree (Procrit) 4,000 unit IV TTS [facility] Last Admin: 03/31/17 11:26 Dose: 4,000 unit Glucagon (Glucagen Diagnostic Kit) 0 mg IM STAT PRN; Protocol PRN Reason: Hypoglycemia Protocol Hydrochlorothiazide (Hydrodiuril) 25 mg PO DAILY [facility] Last Admin: 04/01/17 11:17 Dose: 25 mg Dextrose (Dextrose 5% In Water 1000 Ml) 1,000 mls @ 0 mls/hr IV .Q0M PRN; Protocol; Per Protocol PRN Reason: Hypoglycemia Protocol Insulin Aspart (Novolog) 4 unit SC TID [facility] Last Admin: 04/01/17 17:32 Dose: Not Given Insulin Detemir (Levemir) 14 unit SC HS [facility] Last Admin: 04/01/17 22:42 Dose: 14 unit Isosorbide Mononitrate (Imdur) 60 mg PO DAILY [facility] Last Admin: 04/01/17 11:16 Dose: 60 mg Losartan Potassium (Cozaar) 100 mg PO DAILY [facility] Last Admin: 04/01/17 11:17 Dose: 100 mg Nebivolol (Bystolic) 10 mg PO DAILY [facility] Last Admin: 04/01/17 11:18 Dose: 10 mg Pregabalin (Lyrica) 100 mg PO BID [facility] Last Admin: 04/01/17 18:22 Dose: 100 mg Risperidone (Risperdal Tab) 0.25 mg PO HS [facility] Last Admin: 04/01/17 22:42 Dose: 0.25 mg Rosuvastatin Calcium (Crestor) 10 mg PO HS [facility] Last Admin: 04/01/17 22:42 Dose: 10 mg Sevelamer Carbonate (Renvela) 1.6 gm PO DAILY [facility] Last Admin: 04/01/17 11:18 Dose: 1.6 gm Vitamin B Complex/Vit C/Folic Acid (Nephro-Juan Manuel) 1 tab PO DAILY [facility] Last Admin: 04/01/17 12:23 Dose: 1 tab - Labs Labs: 03/29/17 14:10 03/31/17 10:03 PT 14.1 SECONDS (9.7-12.2) H 03/29/17 14:10 INR 1.3 03/29/17 14:10 APTT 36 SECONDS (21-34) H 03/29/17 14:10 - Constitutional Appears: No Acute Distress - Eye Exam Eye Exam: Conjunctival injection - ENT Exam ENT Exam: Mucous Membranes Moist - Respiratory Exam Respiratory Exam: Rhonchi. absent: Chest Wall Tenderness - Cardiovascular Exam Cardiovascular Exam: absent: JVD, Rubs - GI/Abdominal Exam GI & Abdominal Exam: Distended, Guarding, Normal Bowel Sounds - Extremities Exam Extremities Exam: absent: Calf Tenderness - Back Exam Back Exam: absent: CVA tenderness (L), CVA tenderness (R) - Neurological Exam Neurological Exam: Alert Assessment and Plan (1) CHF (congestive heart failure) Status: Acute (2) ESRD (end stage renal disease) on dialysis Assessment & Plan: Patient with end stage renal disease on maintenance hemodialysis TTS Ultrasound showed ascites and liver cirrhosis Patient also has some leg edema We will give extra dialysis today Patient is still what appeared to be in volume overload Status: Acute (3) Cirrhosis Status: Acute
[2017-04-02] MEDS: (Novolog) Insulin Aspart, Recombinant 100 u/ml 10 ml vial SC SCH (10:16)
[2017-04-02] MEDS: Sevelamer Carb 0.8 gm/Packet PO SCH (10:16)
[2017-04-02] MEDS: Multivitamin Vitamin B Complex (Nephro-Vite) Tab PO SCH (10:16)
[2017-04-02] MEDS ORDERED: Insulin Detemir 100 units/ml Vial (Levemir) SC SCH (10:39)
[2017-04-02 21:40] LABS: C DIFF TOXIN A B NEGATIVE (NEGATIVE)
--- NOTE | 2017-04-02 22:16 | CP.PCM.PN ---
Subjective - Date & Time of Evaluation Date of Evaluation: 04/02/17 Time of Evaluation: 18:30 - Subjective Subjective: Pt seen & evaluated, has persistent diarrhea, no fever, also had consult with GI today Objective - Vital Signs/Intake and Output Vital Signs (last 24 hours): Temp Pulse Resp BP Pulse Ox 98.3 F 79 20 184/96 H 98 04/02/17 15:21 04/02/17 15:21 04/02/17 15:21 04/02/17 15:21 04/02/17 15:21 Intake and Output: 04/02/17 04/03/17 18:59 06:59 Intake Total 200 Balance 200 - Medications Medications: Current Medications Amlodipine Besylate (Norvasc) 10 mg PO DAILY [facility] Last Admin: 04/02/17 11:00 Dose: Not Given Belladonna/Phenobarbital () 1 tab PO Q8 [facility] Last Admin: 04/02/17 14:35 Dose: Not Given Clonidine HCl (Catapres-Tts3 0.3 Mg/24 Hr) 1 patch TD QWK [facility] Clopidogrel Bisulfate (Plavix) 75 mg PO DAILY [facility] Last Admin: 04/02/17 10:16 Dose: Not Given Dextrose (Dextrose 50% Inj) 0 ml IV STAT PRN; Protocol PRN Reason: Hyglycemia Protocol Last Admin: 04/02/17 07:05 Dose: 50 ml Dextrose (Glutose 15) 0 gm PO ONCE PRN; Protocol PRN Reason: Hypoglycemia Protocol Diphenoxylate HCl/Atropine (Lomotil 0.025-2.5 Mg Tablet) 1 tab PO Q4 PRN PRN Reason: Diarrhea Epoetin Tyree (Procrit) 4,000 unit IV TTS [facility] Last Admin: 03/31/17 11:26 Dose: 4,000 unit Glucagon (Glucagen Diagnostic Kit) 0 mg IM STAT PRN; Protocol PRN Reason: Hypoglycemia Protocol Hydrochlorothiazide (Hydrodiuril) 25 mg PO DAILY [facility] Last Admin: 04/02/17 11:00 Dose: Not Given Dextrose (Dextrose 5% In Water 1000 Ml) 1,000 mls @ 0 mls/hr IV .Q0M PRN; Protocol; Per Protocol PRN Reason: Hypoglycemia Protocol Isosorbide Mononitrate (Imdur) 60 mg PO DAILY [facility] Last Admin: 04/02/17 10:16 Dose: Not Given Losartan Potassium (Cozaar) 100 mg PO DAILY [facility] Last Admin: 04/02/17 11:00 Dose: Not Given Metronidazole (Flagyl) 500 mg PO Q8 [facility] Last Admin: 04/02/17 14:35 Dose: Not Given Nebivolol (Bystolic) 10 mg PO DAILY [facility] Last Admin: 04/02/17 11:00 Dose: Not Given Pregabalin (Lyrica) 100 mg PO BID [facility] Last Admin: 04/02/17 18:24 Dose: 100 mg Risperidone (Risperdal Tab) 0.25 mg PO HS [facility] Last Admin: 04/01/17 22:42 Dose: 0.25 mg Rosuvastatin Calcium (Crestor) 10 mg PO HS [facility] Last Admin: 04/01/17 22:42 Dose: 10 mg Sevelamer Carbonate (Renvela) 1.6 gm PO DAILY [facility] Last Admin: 04/02/17 10:16 Dose: 1.6 gm Vitamin B Complex/Vit C/Folic Acid (Nephro-Juan Manuel) 1 tab PO DAILY [facility] Last Admin: 04/02/17 10:16 Dose: Not Given - Labs Labs: 03/29/17 14:10 03/31/17 10:03 PT 14.1 SECONDS (9.7-12.2) H 03/29/17 14:10 INR 1.3 03/29/17 14:10 APTT 36 SECONDS (21-34) H 03/29/17 14:10 - Constitutional Appears: No Acute Distress, Chronically Ill - Head Exam Head Exam: ATRAUMATIC, NORMAL INSPECTION, NORMOCEPHALIC - Eye Exam Eye Exam: EOMI, Normal appearance, PERRL Pupil Exam: NORMAL ACCOMODATION, PERRL - Respiratory Exam Respiratory Exam: Clear to Ausculation Bilateral, NORMAL BREATHING PATTERN - Cardiovascular Exam Cardiovascular Exam: REGULAR RHYTHM, +S1, +S2. absent: Murmur - GI/Abdominal Exam GI & Abdominal Exam: Distended, Hyperactive Bowel Sounds - Rectal Exam Rectal Exam: Deferred Assessment and Plan (1) Abdominal pain Status: Acute (2) CHF (congestive heart failure) Status: Acute (3) ESRD (end stage renal disease) on dialysis Status: Acute (4) Diarrhea Status: Acute
[2017-04-02] MEDS: Atropine-Diphenoxylate 0.025-2.5 mg Tab PO PRN (22:28)
[2017-04-03] MEDS: Atropine-Diphenoxylate 0.025-2.5 mg Tab PO PRN ×2 (03:15→22:34)
--- NOTE | 2017-04-03 05:36 | RAD ---
EXAM: XR Right Knee, 4 views CLINICAL HISTORY: 47 years old, male; Pain; Knee; Bilatera; Additional info: Fell on knees, knee pain TECHNIQUE: 4 views of the right knee. COMPARISON: No relevant prior studies available. FINDINGS: BONES/JOINTS: No acute fractures visualized. No evidence of acute dislocation. No radiographic evidence of significant joint effusion. SOFT TISSUES: No radiographic evidence of significant soft tissue abnormality. VASCULATURE: Vascular calcifications noted. IMPRESSION: - No acute fracture or dislocation seen. - Vascular calcification. - See above for remaining findings. EXAM: XR Left Knee, 4 views EXAM DATE/TIME: 04/03/2017 2:40 AM CLINICAL HISTORY: 47 years old, male; Pain; Knee; Bilatera; Additional info: Fell on knees, knee pain TECHNIQUE: 4 views of the left knee. COMPARISON: No relevant prior studies available. FINDINGS: BONES/JOINTS: Mild patellar spurring. No acute fractures are seen. No evidence of acute dislocation. SOFT TISSUES: No radiographic evidence of significant soft tissue abnormality. VASCULATURE: Vascular calcifications noted.
[2017-04-03] MEDS: Belladonna-Phenobarbital PO SCH ×3 (05:50→22:30)
--- NOTE | 2017-04-03 06:32 | CP.PCM.PN ---
Subjective - Date & Time of Evaluation Date of Evaluation: 04/03/17 Time of Evaluation: 02:30 - Subjective Subjective: Code Star was called at 2:27am. Patient was trying to get out of bed to go to the bathroom, was tangled in sheets and fell on his knees bilaterally. By the time the nursing staff and I arrived, patient was already sitting in bed. Patient reports his knees hurt, specifically on the patella. He denies having chest pain, changes in vision, dizziness. Patient is alert and oriented x3. Patient was examined at bedside in no acute distress; pain with palpation of the patella bilaterally, full ROM, no ecchymosis, swelling, erythema, or abrasions. Vitals were taken 186/105, HR 90, RR20, O2sat 96%. Glucose 161. Ordered bilateral knee xrays which showed no fractures or dislocations. Objective - Vital Signs/Intake and Output Vital Signs (last 24 hours): Temp Pulse Resp BP Pulse Ox 99.2 F 83 20 177/97 H 100 04/03/17 04:10 04/03/17 05:57 04/03/17 04:10 04/03/17 05:57 04/03/17 04:10 Intake and Output: 04/02/17 04/03/17 18:59 06:59 Intake Total 200 10 Balance 200 10 - Medications Medications: Current Medications Amlodipine Besylate (Norvasc) 10 mg PO DAILY [facility] Last Admin: 04/02/17 11:00 Dose: Not Given Belladonna/Phenobarbital () 1 tab PO Q8 [facility] Last Admin: 04/03/17 05:50 Dose: 1 tab Clonidine HCl (Catapres-Tts3 0.3 Mg/24 Hr) 1 patch TD QWK [facility] Clopidogrel Bisulfate (Plavix) 75 mg PO DAILY [facility] Last Admin: 04/02/17 10:16 Dose: Not Given Dextrose (Dextrose 50% Inj) 0 ml IV STAT PRN; Protocol PRN Reason: Hyglycemia Protocol Last Admin: 04/02/17 07:05 Dose: 50 ml Dextrose (Glutose 15) 0 gm PO ONCE PRN; Protocol PRN Reason: Hypoglycemia Protocol Diphenoxylate HCl/Atropine (Lomotil 0.025-2.5 Mg Tablet) 1 tab PO Q4 PRN PRN Reason: Diarrhea Last Admin: 04/03/17 03:15 Dose: 1 tab Epoetin Tyree (Procrit) 4,000 unit IV TTS [facility] Last Admin: 03/31/17 11:26 Dose: 4,000 unit Glucagon (Glucagen Diagnostic Kit) 0 mg IM STAT PRN; Protocol PRN Reason: Hypoglycemia Protocol Hydrochlorothiazide (Hydrodiuril) 25 mg PO DAILY [facility] Last Admin: 04/02/17 11:00 Dose: Not Given Dextrose (Dextrose 5% In Water 1000 Ml) 1,000 mls @ 0 mls/hr IV .Q0M PRN; Protocol; Per Protocol PRN Reason: Hypoglycemia Protocol Isosorbide Mononitrate (Imdur) 60 mg PO DAILY [facility] Last Admin: 04/02/17 10:16 Dose: Not Given Losartan Potassium (Cozaar) 100 mg PO DAILY [facility] Last Admin: 04/02/17 11:00 Dose: Not Given Metronidazole (Flagyl) 500 mg PO Q8 [facility] Last Admin: 04/03/17 05:50 Dose: 500 mg Nebivolol (Bystolic) 10 mg PO DAILY [facility] Last Admin: 04/02/17 11:00 Dose: Not Given Pregabalin (Lyrica) 100 mg PO BID [facility] Last Admin: 04/02/17 18:24 Dose: 100 mg Risperidone (Risperdal Tab) 0.25 mg PO HS [facility] Last Admin: 04/02/17 22:28 Dose: 0.25 mg Rosuvastatin Calcium (Crestor) 10 mg PO HS [facility] Last Admin: 04/02/17 22:26 Dose: 10 mg Sevelamer Carbonate (Renvela) 1.6 gm PO DAILY [facility] Last Admin: 04/02/17 10:16 Dose: 1.6 gm Vitamin B Complex/Vit C/Folic Acid (Nephro-Juan Manuel) 1 tab PO DAILY [facility] Last Admin: 04/02/17 10:16 Dose: Not Given - Labs Labs: 03/29/17 14:10 03/31/17 10:03 PT 14.1 SECONDS (9.7-12.2) H 03/29/17 14:10 INR 1.3 03/29/17 14:10 APTT 36 SECONDS (21-34) H 03/29/17 14:10
--- NOTE | 2017-04-03 08:57 | PN ---
DATE: LOCATION: Room 670, Bed B. SUBJECTIVE: This is a 47-year-old male, seen and examined in rounds today without significant clinical changes or reported active bleeding, appeared to be more awake and alert without reported active bleeding, but complained of intermittent periods of some shortness of breath and mild abdominal pain. No reported nausea or vomiting, but mild dyspepsia. The entire chart is reviewed, including but not limited to the most recent lab and radiology study results, current and the previous medication list, current and the previous medical events and the latest blood glucose level is 279. The patient still has low hemoglobin and hematocrit with thrombocytopenia as reported before. Abdominal distention is happily less than before. PHYSICAL EXAMINATION GENERAL: A 47-year-old male, tolerating somewhat oral intake without reported vomiting. HEENT: Showed pale, dry mucoid membrane, nonicteric sclerae. LUNGS: Few scattered crepitations, decreased air entry at bases. HEART: Positive S1 and S2. ABDOMEN: Soft with slight distention, less than before. Bowel sounds are present, but hypoactive. No mass or organomegaly, but with mild generalized tenderness. EXTREMITIES: Slight lower extremity edematous changes. No clubbing or cyanosis. NEUROLOGIC: No reported new neurological deficits, sensory or motor. IMPRESSION: 1. An ileus secondary to most likely acute enteritis with associated ascites secondary to liver cirrhosis. 2. Known history of hypertension, chronic obstructive pulmonary disease, chronic renal disorder with congestive heart failure. 3. Known history of depression. 4. Peptic ulcer disease by recent history. 5. Poorly controlled diabetes mellitus. 6. Coagulopathy secondary to liver disease with mild jaundice. 7. Anemia secondary to above. SUGGESTION: 1. Continue current management. 2. Guaiac-positive stool clear daily x3. 3. Follow up cancer markers. 4. Further recommendation to follow. Geno Shen MD
--- NOTE | 2017-04-03 09:06 | CP.PCM.PN ---
Subjective - Date & Time of Evaluation Date of Evaluation: 04/03/17 Time of Evaluation: 09:03 - Subjective Subjective: RENAL FOLLOW UP NOTE seen and examined still feels abdominal swelling PE: vss nad axox3 times 3 sclear anicteric op: clear neck: supple cv: +s1+s2 decreased bs at bases abd distended psy cooperative skin normal neuro: a+ox3 accesss: luaf A&P: ESRD/Diabetic kidney disease/HTN/Anemia/Sec hyperpth/abdominal distension/ cirrhosis/ ascites HD today again, s/p extra treatment tomorrow consider paracentesis anemia: monitor cbc today, on epo sec hyperpth: phos level ordered today, will resume calcitriol w/ hd Abdominal distension: imaging shows ascites and cirrhosis f/u gi workup bp remains poorly controlled, inc bystolic to 20 mg daily Objective - Vital Signs/Intake and Output Vital Signs (last 24 hours): Temp Pulse Resp BP Pulse Ox 99.1 F 82 20 176/97 H 97 04/03/17 08:32 04/03/17 08:32 04/03/17 08:32 04/03/17 08:32 04/03/17 08:32 Intake and Output: 04/03/17 04/03/17 06:59 18:59 Intake Total 20 Balance 20 - Medications Medications: Current Medications Amlodipine Besylate (Norvasc) 10 mg PO DAILY [facility] Last Admin: 04/02/17 11:00 Dose: Not Given Belladonna/Phenobarbital () 1 tab PO Q8 [facility] Last Admin: 04/03/17 05:50 Dose: 1 tab Clonidine HCl (Catapres-Tts3 0.3 Mg/24 Hr) 1 patch TD QWK [facility] Clopidogrel Bisulfate (Plavix) 75 mg PO DAILY [facility] Last Admin: 04/02/17 10:16 Dose: Not Given Dextrose (Dextrose 50% Inj) 0 ml IV STAT PRN; Protocol PRN Reason: Hyglycemia Protocol Last Admin: 04/02/17 07:05 Dose: 50 ml Dextrose (Glutose 15) 0 gm PO ONCE PRN; Protocol PRN Reason: Hypoglycemia Protocol Diphenoxylate HCl/Atropine (Lomotil 0.025-2.5 Mg Tablet) 1 tab PO Q4 PRN PRN Reason: Diarrhea Last Admin: 04/03/17 03:15 Dose: 1 tab Epoetin Tyree (Procrit) 4,000 unit IV TTS [facility] Last Admin: 03/31/17 11:26 Dose: 4,000 unit Glucagon (Glucagen Diagnostic Kit) 0 mg IM STAT PRN; Protocol PRN Reason: Hypoglycemia Protocol Heparin Sodium (Porcine) (Heparin) 5,000 units SC Q8 [facility] Hydrochlorothiazide (Hydrodiuril) 25 mg PO DAILY [facility] Last Admin: 04/02/17 11:00 Dose: Not Given Dextrose (Dextrose 5% In Water 1000 Ml) 1,000 mls @ 0 mls/hr IV .Q0M PRN; Protocol; Per Protocol PRN Reason: Hypoglycemia Protocol Isosorbide Mononitrate (Imdur) 60 mg PO DAILY [facility] Last Admin: 04/02/17 10:16 Dose: Not Given Losartan Potassium (Cozaar) 100 mg PO DAILY [facility] Last Admin: 04/02/17 11:00 Dose: Not Given Metronidazole (Flagyl) 500 mg PO Q8 [facility] Last Admin: 04/03/17 05:50 Dose: 500 mg Nebivolol (Bystolic) 10 mg PO DAILY [facility] Last Admin: 04/02/17 11:00 Dose: Not Given Pregabalin (Lyrica) 100 mg PO BID [facility] Last Admin: 04/02/17 18:24 Dose: 100 mg Risperidone (Risperdal Tab) 0.25 mg PO HS [facility] Last Admin: 04/02/17 22:28 Dose: 0.25 mg Rosuvastatin Calcium (Crestor) 10 mg PO HS [facility] Last Admin: 04/02/17 22:26 Dose: 10 mg Sevelamer Carbonate (Renvela) 1.6 gm PO DAILY [facility] Last Admin: 04/02/17 10:16 Dose: 1.6 gm Vitamin B Complex/Vit C/Folic Acid (Nephro-Juan Manuel) 1 tab PO DAILY [facility] Last Admin: 04/02/17 10:16 Dose: Not Given - Labs Labs: 03/29/17 14:10 03/31/17 10:03 PT 14.1 SECONDS (9.7-12.2) H 03/29/17 14:10 INR 1.3 03/29/17 14:10 APTT 36 SECONDS (21-34) H 03/29/17 14:10
--- NOTE | 2017-04-03 09:10 | CON ---
DATE: 03/31/2017 LOCATION: Room 670, bed B. From Dr. Shen to Dr. Siva Natarajan. REASON FOR CONSULTATION: I was called for GI consultation by the admitting medical staff and the primary MD. The patient is seen and fully examined on 03/31/2017. The entire chart is reviewed including, but not limited to the most recent lab and radiology study results, current and the previous medication list, current and the previous medical events, allergy to medication list as well as all the available current and the previous medical records. Case was discussed with the staff at length. HISTORY OF PRESENT ILLNESS: This is a 47-year-old male who was admitted to the hospital through the emergency room with a main complaint of shortness of breath, on and off abdominal pain, abdominal distention and bloating with poor oral intake. Recently was reported bilateral lower extremities edematous changes for more than 10 to 14 days prior to his admission, but no reported active bleeding and no reported hematemesis. REVIEW OF SYSTEMS: The patient denies any significant complaint of shortness of breath, chills or fever, but mild change of bowel movement habit recently. PAST MEDICAL HISTORY: Including mainly, but not limited to: 1. Chronic renal failure, on hemodialysis. 2. COPD with bronchitis in the past. 3. Hypertension with congestive heart failure. 4. Known history of hyperlipidemia, peripheral edema syndrome. 5. Reported anemia before. 6. Apparently, the patient had upper endoscopy in 06/2016, reports are not available. FAMILY HISTORY: Unknown. SOCIAL HISTORY: Denied any recent history of cigarette smoking or alcohol intake. CURRENT MEDICATIONS: Medication list was reviewed. ALLERGIES TO MEDICATIONS: UNCLEAR. LABORATORY DATA: Initial blood work post-admission showed hemoglobin of 10.7 and hematocrit of 33.1 with thrombocytopenia of 115 with increased blood glucose level to 240, increased BUN of 56 and creatinine of 9.6, the patient on hemodialysis. DIAGNOSTIC DATA: Reported recent abdominal x-ray showed somewhat dilated small and large bowel without evidence of obstruction. PHYSICAL EXAMINATION: GENERAL: A 47-year-old male, appear to be awake, alert and oriented, complaining of abdominal pain with somewhat loss of appetite for fear of more abdominal distention, but had been having a bowel movement, less than before recently. VITAL SIGNS: The patient is afebrile with pulse of 74, respiratory rate of 20 to 22 and blood pressure of 120/76. HEENT: Show pale dry oral mucoid membranes. Nonicteric sclerae. LYMPH NODES: No lymphadenitis or lymphadenopathy. LUNGS: Clear breathing sounds with mildly decreased at bases. HEART: Positive S1 and S2. ABDOMEN: [id number] distention with generalized mild tenderness. No mass or organomegaly. No rebound tenderness or guarding. Bowel sounds somewhat hypoactive. RECTAL: The patient refused. EXTREMITIES: With lower extremity mild edematous changes. No clubbing or cyanosis. VASCULAR: Peripheral pulses are positive, but weak bilaterally. NEUROLOGIC: Again, no reported neurological deficits, sensory or motor. IMPRESSION: 1. Abdominal distention of unclear etiology with mildly dilated bowels by radiology study results, the possibility of enteritis was raised. 2. Anemia, to rule out upper gastrointestinal blood loss, upper versus lower versus possible occult gastrointestinal malignancy, less likely. 3. Chronic renal disease, on hemodialysis, which would be also another reason for the patient's anemia. 4. Known history of, but not limited to hypertension, congestive heart failure, chronic obstructive pulmonary disease, hyperlipidemia, and depression with peripheral edema syndrome. SUGGESTIONS: 1. Agree with your plan. 2. Sectional abdominal and pelvic CAT scan when the patient is more stable clinically. 3. If the patient's abdominal distention persists, then NG tube to be placed for decompression. 4. IV antibiotics, the patient may need Flagyl 500 mg IV piggyback daily only due to his renal failure. 5. Cancer markers including CEA. 6. Rehydration as needed. 7. Proton pump inhibitors IV. 8. Antireflux measures. 9. If the patient's condition persists, then endoscopic evaluation of the upper GI tract should be kept in mind. 10. Further recommendation to follow. Thank you for letting me to participate in your patient's case management. We will follow up closely with you. Geno Shen MD
[2017-04-03 09:12] LABS: FECAL LEUKOCYTES NEGATIVE (NEGATIVE)
[2017-04-03] MEDS: Sevelamer Carb 0.8 gm/Packet PO SCH (10:20)
[2017-04-03] MEDS: Multivitamin Vitamin B Complex (Nephro-Vite) Tab PO SCH (10:21)
[2017-04-03 11:41] LABS: HEMATOCRIT 33.6 % (35.0-51.0); MEAN CORPUSCULAR HEMOGLOBIN 26.4 pg (27.0-31.0); MEAN CORPUSCULAR HGB CONC 31.4 g/dL (33.0-37.0); MEAN PLATELET VOLUME 11.2 fL (7.2-11.7); RED CELL DISTRIBUTION WIDTH 17.6 % (11.5-14.5); WHITE BLOOD COUNT 6.1 K/uL (4.8-10.8)
[2017-04-03 12:01] LABS: POTASSIUM 4.5 mmol/L (3.6-5.2)
[2017-04-03 12:04] LABS: ALB/GLOB RATIO 0.8 (1.0-2.1); PHOSPHOROUS 4.3 mg/dL (2.5-4.5); TOTAL PROTEIN 8.2 g/dL (6.3-8.3)
[2017-04-03] MEDS: EPOETIN ALFA 4,000 UNIT/ML ML Dialysis IV SCH (15:11)
--- NOTE | 2017-04-03 16:45 | PN ---
DATE: LOCATION: [facility], bed B HISTORY OF PRESENT ILLNESS: This is a 47-year-old male seen and examined in rounds without significant clinical changes, was reported fall last night without reported acute injury. The entire chart is reviewed including, but not limited to the most recent lab and the radiology study results, current and the previous medication list, and current and previous medical events, and the stool for C. diff was negative. The latest blood glucose level 171. Case was discussed with the staff at length. PHYSICAL EXAMINATION: VITAL SIGNS: A 47-year-old male with a low-grade temperature of 99.1, respiratory rate 20/22, pulse of 86 with blood pressure 170/94. HEENT: Showed pale dry oral mucous membrane. Nonicteric sclerae. LUNGS: Few scattered crepitation. Decreased air entry at bases. HEART: Positive S1 and S2. ABDOMEN: Soft. Bowel sounds are present. No mass or organomegaly. No rebound, tenderness, or guarding. It has to be mentioned that the patient still has mild abdominal distention with reported ascites, with ultrasound showed evidence of hepatosplenomegaly with hepatic cirrhosis and mild ascites. EXTREMITIES: Without significant edema, clubbing or cyanosis. NEUROLOGIC: No neurological deficits, sensory or motor. IMPRESSION: 1. Hepatosplenomegaly with liver cirrhosis. 2. Portal hypertension. 3. Ascites with abdominal distention. 4. Acute enteritis with an ileus secondary to above. 5. To rule out spontaneous bacterial peritonitis. The patient may need ultrasound-guided abdominal paracentesis IV antibiotics. 6. Known history of hypertension, chronic obstructive pulmonary disease. 7. Known history of end-state renal disease. 8. Poorly controlled diabetes mellitus. 9. Coagulopathy secondary to above with mild jaundice. 10. Anemia secondary to above. SUGGESTION: 1. Continue current management. 2. Follow up cancer markers. 3. CAT scan or ultrasound-guided abdominal paracentesis. Geno Shen MD cc: Geno Shen MD
[2017-04-03] MEDS: (Novolog) Insulin Aspart, Recombinant 100 u/ml 10 ml vial SC SCH ×2 (18:33→22:16)
[2017-04-03] MEDS ORDERED: Nitroglycerin 2% Ointment Foilpak UD TOP PRN (19:51)
[2017-04-03] MEDS: (Lantus) Insulin Glargine, Recombinant SC SCH ×2 (22:31→22:38)
--- NOTE | 2017-04-03 22:43 | CP.PCM.PN ---
Subjective - Date & Time of Evaluation Date of Evaluation: 04/03/17 Time of Evaluation: 08:00 - Subjective Subjective: Pt seen and evalauted, he is for IR evaluationa nd possible paracentresis, Code Star was called at 2:27am. Patient was trying to get out of bed to go to the bathroom, was tangled in sheets and fell on his knees bilaterally. Pt had High blood pressure, he received nitropaste and now his B.P is under control, diarrhea is better but he has extensive belly swelling Objective - Vital Signs/Intake and Output Vital Signs (last 24 hours): Temp Pulse Resp BP Pulse Ox 97.3 F L 81 20 159/76 H 98 04/03/17 17:05 04/03/17 17:05 04/03/17 17:05 04/03/17 17:05 04/03/17 17:05 Intake and Output: 04/03/17 04/04/17 18:59 06:59 Intake Total 280 Balance 280 - Medications Medications: Current Medications Amlodipine Besylate (Norvasc) 10 mg PO DAILY [facility] Last Admin: 04/03/17 10:20 Dose: 10 mg Belladonna/Phenobarbital () 1 tab PO Q8 [facility] Last Admin: 04/03/17 22:30 Dose: 1 tab Calcitriol (Rocaltrol) 0.5 mcg PO TTS [facility] Last Admin: 04/03/17 10:21 Dose: 0.5 mcg Clonidine HCl (Catapres-Tts3 0.3 Mg/24 Hr) 1 patch TD QWK [facility] Clopidogrel Bisulfate (Plavix) 75 mg PO DAILY [facility] Last Admin: 04/03/17 10:21 Dose: 75 mg Dextrose (Dextrose 50% Inj) 0 ml IV STAT PRN; Protocol PRN Reason: Hyglycemia Protocol Last Admin: 04/02/17 07:05 Dose: 50 ml Dextrose (Glutose 15) 0 gm PO ONCE PRN; Protocol PRN Reason: Hypoglycemia Protocol Diphenoxylate HCl/Atropine (Lomotil 0.025-2.5 Mg Tablet) 1 tab PO Q4 PRN PRN Reason: Diarrhea Last Admin: 04/03/17 22:34 Dose: 1 tab Epoetin Tyree (Procrit) 4,000 unit IV TTS [facility] Last Admin: 04/03/17 15:11 Dose: 4,000 unit Glucagon (Glucagen Diagnostic Kit) 0 mg IM STAT PRN; Protocol PRN Reason: Hypoglycemia Protocol Heparin Sodium (Porcine) (Heparin) 5,000 units SC Q8 [facility] Last Admin: 04/03/17 22:37 Dose: Not Given Hydrochlorothiazide (Hydrodiuril) 25 mg PO DAILY [facility] Last Admin: 04/03/17 10:29 Dose: Not Given Dextrose (Dextrose 5% In Water 1000 Ml) 1,000 mls @ 0 mls/hr IV .Q0M PRN; Protocol; Per Protocol PRN Reason: Hypoglycemia Protocol Insulin Aspart (Novolog) 0 unit SC ACHS [facility] PRN Reason: Protocol Last Admin: 04/03/17 22:16 Dose: Not Given Insulin Glargine (Lantus) 10 unit SC HS [facility] Last Admin: 04/03/17 22:38 Dose: Not Given Isosorbide Mononitrate (Imdur) 60 mg PO DAILY [facility] Last Admin: 04/03/17 10:29 Dose: Not Given Losartan Potassium (Cozaar) 100 mg PO DAILY [facility] Last Admin: 04/03/17 10:28 Dose: Not Given Metronidazole (Flagyl) 500 mg PO Q8 [facility] Last Admin: 04/03/17 22:30 Dose: 500 mg Nebivolol (Bystolic) 20 mg PO DAILY [facility] Last Admin: 04/03/17 10:28 Dose: Not Given Nitroglycerin (Nitro-Bid 2% Oint) 1 ea TOP Q6H PRN PRN Reason: BP Syst 170 and above Pregabalin (Lyrica) 100 mg PO BID [facility] Last Admin: 04/03/17 18:32 Dose: 100 mg Risperidone (Risperdal Tab) 0.25 mg PO [facility] Last Admin: 04/03/17 22:34 Dose: 0.25 mg Rosuvastatin Calcium (Crestor) 10 mg PO HS [facility] Last Admin: 04/03/17 22:29 Dose: 10 mg Sevelamer Carbonate (Renvela) 1.6 gm PO DAILY [facility] Last Admin: 04/03/17 10:20 Dose: 1.6 gm Vitamin B Complex/Vit C/Folic Acid (Nephro-Juan Manuel) 1 tab PO DAILY [facility] Last Admin: 04/03/17 10:21 Dose: 1 tab - Labs Labs: 04/03/17 11:36 04/03/17 11:36 PT 14.1 SECONDS (9.7-12.2) H 03/29/17 14:10 INR 1.3 03/29/17 14:10 APTT 36 SECONDS (21-34) H 03/29/17 14:10 - Constitutional Appears: No Acute Distress - Head Exam Head Exam: ATRAUMATIC, NORMAL INSPECTION, NORMOCEPHALIC - Respiratory Exam Respiratory Exam: Clear to Ausculation Bilateral, NORMAL BREATHING PATTERN - Cardiovascular Exam Cardiovascular Exam: REGULAR RHYTHM, +S1, +S2. absent: Murmur - GI/Abdominal Exam GI & Abdominal Exam: Distended, Normal Bowel Sounds - Rectal Exam Rectal Exam: Deferred - Neurological Exam Neurological Exam: Alert, Awake, CN II-XII Intact, Normal Gait, Oriented x3 - Psychiatric Exam Psychiatric exam: Normal Affect, Normal Mood Assessment and Plan (1) Abdominal pain Status: Acute (2) CHF (congestive heart failure) Status: Acute (3) ESRD (end stage renal disease) on dialysis Status: Acute (4) Diarrhea Status: Acute (5) Fluid overload Status: Acute
[2017-04-04] MEDS: Atropine-Diphenoxylate 0.025-2.5 mg Tab PO PRN (03:53)
[2017-04-04] MEDS: Belladonna-Phenobarbital PO SCH ×3 (05:03→21:46)
[2017-04-04] MEDS: (Novolog) Insulin Aspart, Recombinant 100 u/ml 10 ml vial SC SCH ×4 (07:58→21:47)
[2017-04-04] MEDS: Sevelamer Carb 0.8 gm/Packet PO SCH (09:16)
[2017-04-04] MEDS: Multivitamin Vitamin B Complex (Nephro-Vite) Tab PO SCH (09:17)
--- NOTE | 2017-04-04 10:21 | CP.PCM.PN ---
Subjective - Date & Time of Evaluation Date of Evaluation: 04/04/17 Time of Evaluation: 10:21 - Subjective Subjective: renal follow up note s/p paracentesis today, drained 1200cc fliud complains if pain at needle site PE VSS lying in bed heent normal op moist no resp distress CTA s1s2 present abd soft mildly distended skin normal AO times 3 A&P: ESRD/Diabetic kidney disease/HTN/Anemia/Sec hyperpth/abdominal distension/ cirrhosis/ ascites HD tTTS per schedule no hd sessions today anemia: on epo sec hyperpth: on calcitriol Abdominal distension: imaging shows ascites and cirrhosis f/u gi workup; paracentesis done bp better controlled, I have stopped HCTZ not sure any benefit in ESRD oligoanuric patient. Objective - Vital Signs/Intake and Output Vital Signs (last 24 hours): Temp Pulse Resp BP Pulse Ox 98.3 F 80 20 170/96 H 95 04/04/17 08:22 04/04/17 08:22 04/04/17 08:22 04/04/17 08:22 04/04/17 08:22 Intake and Output: 04/04/17 04/04/17 06:59 18:59 Intake Total 10 Balance 10 - Medications Medications: Current Medications Amlodipine Besylate (Norvasc) 10 mg PO DAILY [facility] Last Admin: 04/04/17 09:17 Dose: 10 mg Belladonna/Phenobarbital () 1 tab PO Q8 [facility] Last Admin: 04/04/17 05:03 Dose: 1 tab Calcitriol (Rocaltrol) 0.5 mcg PO TTS [facility] Last Admin: 04/03/17 10:21 Dose: 0.5 mcg Clonidine HCl (Catapres-Tts3 0.3 Mg/24 Hr) 1 patch TD QWK [facility] Clopidogrel Bisulfate (Plavix) 75 mg PO DAILY [facility] Last Admin: 04/04/17 09:17 Dose: 75 mg Dextrose (Dextrose 50% Inj) 0 ml IV STAT PRN; Protocol PRN Reason: Hyglycemia Protocol Last Admin: 04/02/17 07:05 Dose: 50 ml Dextrose (Glutose 15) 0 gm PO ONCE PRN; Protocol PRN Reason: Hypoglycemia Protocol Diphenoxylate HCl/Atropine (Lomotil 0.025-2.5 Mg Tablet) 1 tab PO Q4 PRN PRN Reason: Diarrhea Last Admin: 04/04/17 03:53 Dose: 1 tab Epoetin Tyree (Procrit) 4,000 unit IV TTS [facility] Last Admin: 04/03/17 15:11 Dose: 4,000 unit Glucagon (Glucagen Diagnostic Kit) 0 mg IM STAT PRN; Protocol PRN Reason: Hypoglycemia Protocol Heparin Sodium (Porcine) (Heparin) 5,000 units SC Q8 [facility] Last Admin: 04/04/17 05:11 Dose: Not Given Hydrochlorothiazide (Hydrodiuril) 25 mg PO DAILY [facility] Last Admin: 04/04/17 09:17 Dose: 25 mg Dextrose (Dextrose 5% In Water 1000 Ml) 1,000 mls @ 0 mls/hr IV .Q0M PRN; Protocol; Per Protocol PRN Reason: Hypoglycemia Protocol Insulin Aspart (Novolog) 0 unit SC ACHS [facility] PRN Reason: Protocol Last Admin: 04/04/17 07:58 Dose: 3 unit Insulin Glargine (Lantus) 10 unit SC HS [facility] Last Admin: 04/03/17 22:38 Dose: Not Given Isosorbide Mononitrate (Imdur) 60 mg PO DAILY [facility] Last Admin: 04/04/17 09:17 Dose: 60 mg Losartan Potassium (Cozaar) 100 mg PO DAILY [facility] Last Admin: 04/04/17 09:17 Dose: 100 mg Metronidazole (Flagyl) 500 mg PO Q8 [facility] Last Admin: 04/04/17 05:04 Dose: 500 mg Nebivolol (Bystolic) 20 mg PO DAILY [facility] Last Admin: 04/04/17 09:17 Dose: 20 mg Nitroglycerin (Nitro-Bid 2% Oint) 1 ea TOP Q6H PRN PRN Reason: BP Syst 170 and above Pregabalin (Lyrica) 100 mg PO BID [facility] Last Admin: 04/04/17 09:16 Dose: 100 mg Risperidone (Risperdal Tab) 0.25 mg PO HS [facility] Last Admin: 04/03/17 22:34 Dose: 0.25 mg Rosuvastatin Calcium (Crestor) 10 mg PO HS [facility] Last Admin: 04/03/17 22:29 Dose: 10 mg Sevelamer Carbonate (Renvela) 1.6 gm PO DAILY [facility] Last Admin: 04/04/17 09:16 Dose: 1.6 gm Vitamin B Complex/Vit C/Folic Acid (Nephro-Juan Manuel) 1 tab PO DAILY [facility] Last Admin: 04/04/17 09:17 Dose: 1 tab - Labs Labs: 04/03/17 11:36 04/03/17 11:36 PT 14.1 SECONDS (9.7-12.2) H 03/29/17 14:10 INR 1.3 03/29/17 14:10 APTT 36 SECONDS (21-34) H 03/29/17 14:10
--- NOTE | 2017-04-04 13:23 | PCM.SURG1 ---
Surgeon's Initial Post Op Note - Surgeon's Notes Surgeon: Herman Gordon MD Braille Operator: NONE Type of Anesthesia: Local Pre-Operative Diagnosis: Ascites Operative Findings: US showed a small amount ascites Post-Operative Diagnosis: Ascites Operation Performed: US guided paracentesis. Specimen/Specimens Removed: 1200 cc of charles colored fluid Estimated Blood Loss: EBL {In ML}: 0 Blood Products Given: N/A Drains Used: No Drains Post-Op Condition: Fair Date of Surgery/Procedure: 04/04/17 Time of Surgery/Procedure: 08:20
--- NOTE | 2017-04-04 13:30 | US ---
Date of Procedure: 04/04/2014 PROCEDURE: Ultrasound-guided paracentesis, CPT 48149 Medications: 7 cc 1% Lidocaine HISTORY: Ascites, abdominal pain TECHNIQUE: Following informed consent , the patient was placed supine on the stretcher and the site was marked. A limited abdominal ultrasound was performed that showed a small amount of intra-abdominal fluid. Procedural time out was called and the Pt's abdomen was marked and prepped and draped in the usual sterile fashion. Ultrasound-guided paracentesis performed. A total of 1.2 liters of charles colored fluid was removed without complication. Fluid specimen was sent for culture, sensitivity, cytology and chemistries. IMPRESSION: Ultrasound-guided large volume paracentesis.
--- NOTE | 2017-04-04 15:17 | CP.PCM.PN ---
Subjective - Date & Time of Evaluation Date of Evaluation: 04/04/17 Time of Evaluation: 20:00 - Subjective Subjective: Pt seen and examined, s/p paracentesis, is improving. decreased abdominal pains nd swelling, less short of breath denies any nausea and vomitting Objective - Vital Signs/Intake and Output Vital Signs (last 24 hours): Temp Pulse Resp BP Pulse Ox 98.3 F 80 20 144/79 95 04/04/17 08:22 04/04/17 08:22 04/04/17 08:22 04/04/17 13:44 04/04/17 08:22 Intake and Output: 04/04/17 04/04/17 06:59 18:59 Intake Total 10 300 Balance 10 300 - Medications Medications: Current Medications Amlodipine Besylate (Norvasc) 10 mg PO DAILY [facility] Last Admin: 04/04/17 09:17 Dose: 10 mg Belladonna/Phenobarbital () 1 tab PO Q8 [facility] Last Admin: 04/04/17 13:48 Dose: 1 tab Calcitriol (Rocaltrol) 0.5 mcg PO TTS [facility] Last Admin: 04/03/17 10:21 Dose: 0.5 mcg Clonidine HCl (Catapres-Tts3 0.3 Mg/24 Hr) 1 patch TD QWK [facility] Clopidogrel Bisulfate (Plavix) 75 mg PO DAILY [facility] Last Admin: 04/04/17 09:17 Dose: 75 mg Dextrose (Dextrose 50% Inj) 0 ml IV STAT PRN; Protocol PRN Reason: Hyglycemia Protocol Last Admin: 04/02/17 07:05 Dose: 50 ml Dextrose (Glutose 15) 0 gm PO ONCE PRN; Protocol PRN Reason: Hypoglycemia Protocol Diphenoxylate HCl/Atropine (Lomotil 0.025-2.5 Mg Tablet) 1 tab PO Q4 PRN PRN Reason: Diarrhea Last Admin: 04/04/17 03:53 Dose: 1 tab Epoetin Tyree (Procrit) 4,000 unit IV TTS [facility] Last Admin: 04/03/17 15:11 Dose: 4,000 unit Glucagon (Glucagen Diagnostic Kit) 0 mg IM STAT PRN; Protocol PRN Reason: Hypoglycemia Protocol Heparin Sodium (Porcine) (Heparin) 5,000 units SC Q8 [facility] Last Admin: 04/04/17 13:48 Dose: 5,000 units Dextrose (Dextrose 5% In Water 1000 Ml) 1,000 mls @ 0 mls/hr IV .Q0M PRN; Protocol; Per Protocol PRN Reason: Hypoglycemia Protocol Insulin Aspart (Novolog) 0 unit SC ACHS [facility] PRN Reason: Protocol Last Admin: 04/04/17 11:54 Dose: 3 unit Insulin Glargine (Lantus) 10 unit SC HS [facility] Last Admin: 04/03/17 22:38 Dose: Not Given Isosorbide Mononitrate (Imdur) 60 mg PO DAILY [facility] Last Admin: 04/04/17 09:17 Dose: 60 mg Losartan Potassium (Cozaar) 100 mg PO DAILY [facility] Last Admin: 04/04/17 09:17 Dose: 100 mg Metronidazole (Flagyl) 500 mg PO Q8 [facility] Last Admin: 04/04/17 13:48 Dose: 500 mg Nebivolol (Bystolic) 20 mg PO DAILY [facility] Last Admin: 04/04/17 09:17 Dose: 20 mg Nitroglycerin (Nitro-Bid 2% Oint) 1 ea TOP Q6H PRN PRN Reason: BP Syst 170 and above Pregabalin (Lyrica) 100 mg PO BID [facility] Last Admin: 04/04/17 09:16 Dose: 100 mg Risperidone (Risperdal Tab) 0.25 mg PO HS [facility] Last Admin: 04/03/17 22:34 Dose: 0.25 mg Rosuvastatin Calcium (Crestor) 10 mg PO HS [facility] Last Admin: 04/03/17 22:29 Dose: 10 mg Sevelamer Carbonate (Renvela) 1.6 gm PO DAILY [facility] Last Admin: 04/04/17 09:16 Dose: 1.6 gm Vitamin B Complex/Vit C/Folic Acid (Nephro-Juan Manuel) 1 tab PO DAILY [facility] Last Admin: 04/04/17 09:17 Dose: 1 tab - Labs Labs: 04/03/17 11:36 04/03/17 11:36 PT 14.1 SECONDS (9.7-12.2) H 03/29/17 14:10 INR 1.3 03/29/17 14:10 APTT 36 SECONDS (21-34) H 03/29/17 14:10 - Constitutional Appears: No Acute Distress - Head Exam Head Exam: ATRAUMATIC, NORMAL INSPECTION, NORMOCEPHALIC - Eye Exam Eye Exam: EOMI, Normal appearance, PERRL Pupil Exam: NORMAL ACCOMODATION, PERRL - Respiratory Exam Respiratory Exam: Clear to Ausculation Bilateral, NORMAL BREATHING PATTERN - Cardiovascular Exam Cardiovascular Exam: REGULAR RHYTHM, +S1, +S2. absent: Murmur - GI/Abdominal Exam GI & Abdominal Exam: Distended, Normal Bowel Sounds Assessment and Plan (1) Abdominal pain Assessment & Plan: GI follow up fluid studies Status: Acute (2) CHF (congestive heart failure) Status: Acute (3) ESRD (end stage renal disease) on dialysis Status: Acute (4) Diarrhea Status: Acute (5) Fluid overload Status: Acute
--- NOTE | 2017-04-04 19:09 | PN ---
LOCATION: [facility], bed B. SUBJECTIVE: This is a 47 years old male seen and examined in rounds early today without significant clinical changes. Appeared to be somewhat more awake and alert with status post abdominal paracentesis with removal of almost 1600 mL, without significant complaint of abdominal pain with clean abdominal dressing. The entire chart is reviewed including but not limited to the most recent lab and radiology study results, current and previous medication list, current and previous medical events. Case discussed at length with the staff in the floor. Today's lab showed blood glucose level of 222, and the patient found to have elevated CEA level of 5.9, which could be secondary to his liver dysfunction versus colon CA. PHYSICAL EXAMINATION: GENERAL: A 47-year-old male. VITAL SIGNS: Afebrile with pulse of 84, respiratory rate 20 to 22, and blood pressure 162/92. HEENT: Showed pale, dry oral mucous membrane. Nonicteric sclerae. LUNGS: Few scattered crepitation. Decreased air entry at bases. HEART: Positive S1 and S2. ABDOMEN: Soft with slight distention. No mass or organomegaly. No rebound tenderness or guarding. EXTREMITIES: Lower extremity edematous changes. No clubbing or cyanosis. NEUROLOGIC: No new reported neurological deficits, sensory or motor. IMPRESSION: 1. Hepatosplenomegaly by radiology study results with liver cirrhosis. 2. Evidence of portal hypertension. 3. Ascites with status post abdominal paracentesis with less abdominal distention. 4. Acute enteritis. 5. Known history of hypertension, chronic obstructive pulmonary disease. 6. Known history of end-stage renal disease. 7. Poorly-controlled diabetes mellitus. 8. Anemia secondary to above. 9. Elevated CEA level, again that could be secondary to his liver disease versus occult lower gastrointestinal malignancy. SUGGESTION: 1. Agree with your plan. 2. The patient may need upper and lower endoscopy when he is more stable clinically, otherwise close observation to follow. Geno Shen MD
[2017-04-04] MEDS: (Lantus) Insulin Glargine, Recombinant SC SCH (21:47)
[2017-04-05] MEDS: Belladonna-Phenobarbital PO SCH ×2 (05:52→14:01)
[2017-04-05] MEDS: (Novolog) Insulin Aspart, Recombinant 100 u/ml 10 ml vial SC SCH ×3 (09:04→18:03)
[2017-04-05] MEDS: Multivitamin Vitamin B Complex (Nephro-Vite) Tab PO SCH (10:05)
[2017-04-05] MEDS: EPOETIN ALFA 4,000 UNIT/ML ML Dialysis IV SCH (10:32)
[2017-04-05] MEDS: Sevelamer Carb 0.8 gm/Packet PO SCH (12:06)
--- NOTE | 2017-04-05 15:06 | CP.PCM.PN ---
Subjective - Date & Time of Evaluation Date of Evaluation: 04/05/17 Time of Evaluation: 15:03 - Subjective Subjective: RENAL PROGRESS NOTE s: seen and examined feels ok s/p hd o: vss gen: nad sclera: anicteric op clear neck supple cv: +S1+s2 lungs: cta abd distended ext 1+edema neuro: a+ox3 psych: normal affect skin dry imp: diabetic kidney disease/ esrd/ htn / anemia /secondary hyperparathyroid/ascites/ anemia of renal disease plan: s/p HD today 3 kg uf dm per primary bp high today however past couple days well controlled likely due to holding meds pre-hd was given meds now f/u gi plan re: liver dz/ascites on epo continue calcitriol Objective - Vital Signs/Intake and Output Vital Signs (last 24 hours): Temp Pulse Resp BP Pulse Ox 97.6 F 81 22 222/119 H 100 04/05/17 12:05 04/05/17 12:05 04/05/17 12:05 04/05/17 14:00 04/05/17 12:05 Intake and Output: 04/05/17 04/05/17 06:59 18:59 Intake Total 200 Balance 200 - Medications Medications: Current Medications Amlodipine Besylate (Norvasc) 10 mg PO DAILY [facility] Last Admin: 04/05/17 14:03 Dose: 10 mg Belladonna/Phenobarbital () 1 tab PO Q8 [facility] Last Admin: 04/05/17 14:01 Dose: 1 tab Calcitriol (Rocaltrol) 0.5 mcg PO TTS [facility] Last Admin: 04/05/17 12:06 Dose: Not Given Clonidine HCl (Catapres-Tts3 0.3 Mg/24 Hr) 1 patch TD QWK [facility] Last Admin: 04/05/17 14:04 Dose: 1 patch Clopidogrel Bisulfate (Plavix) 75 mg PO DAILY [facility] Last Admin: 04/05/17 14:03 Dose: 75 mg Dextrose (Dextrose 50% Inj) 0 ml IV STAT PRN; Protocol PRN Reason: Hyglycemia Protocol Last Admin: 04/02/17 07:05 Dose: 50 ml Dextrose (Glutose 15) 0 gm PO ONCE PRN; Protocol PRN Reason: Hypoglycemia Protocol Diphenoxylate HCl/Atropine (Lomotil 0.025-2.5 Mg Tablet) 1 tab PO Q4 PRN PRN Reason: Diarrhea Last Admin: 04/04/17 03:53 Dose: 1 tab Epoetin Tyree (Procrit) 4,000 unit IV TTS [facility] Last Admin: 04/05/17 10:32 Dose: 4,000 unit Glucagon (Glucagen Diagnostic Kit) 0 mg IM STAT PRN; Protocol PRN Reason: Hypoglycemia Protocol Heparin Sodium (Porcine) (Heparin) 5,000 units SC Q8 [facility] Last Admin: 04/05/17 14:02 Dose: 5,000 units Insulin Aspart (Novolog) 0 unit SC ACHS [facility] PRN Reason: Protocol Last Admin: 04/05/17 12:06 Dose: Not Given Insulin Glargine (Lantus) 10 unit SC HS [facility] Last Admin: 04/04/17 21:47 Dose: 10 u Isosorbide Mononitrate (Imdur) 120 mg PO DAILY [facility] Last Admin: 04/05/17 14:01 Dose: 120 mg Losartan Potassium (Cozaar) 100 mg PO DAILY [facility] Last Admin: 04/05/17 14:02 Dose: 100 mg Metronidazole (Flagyl) 500 mg PO Q8 [facility] Last Admin: 04/05/17 14:02 Dose: 500 mg Nebivolol (Bystolic) 20 mg PO DAILY [facility] Last Admin: 04/05/17 14:03 Dose: 20 mg Nitroglycerin (Nitro-Bid 2% Oint) 1 ea TOP Q6H PRN PRN Reason: BP Syst 170 and above Last Admin: 04/05/17 05:53 Dose: 1 ea Pregabalin (Lyrica) 100 mg PO BID [facility] Last Admin: 04/05/17 10:05 Dose: Not Given Risperidone (Risperdal Tab) 0.25 mg PO HS [facility] Last Admin: 04/04/17 21:48 Dose: 0.25 mg Rosuvastatin Calcium (Crestor) 10 mg PO HS [facility] Last Admin: 04/04/17 21:45 Dose: 10 mg Sevelamer Carbonate (Renvela) 1.6 gm PO DAILY [facility] Last Admin: 04/05/17 12:06 Dose: Not Given Vitamin B Complex/Vit C/Folic Acid (Nephro-Juan Manuel) 1 tab PO DAILY [facility] Last Admin: 04/05/17 10:05 Dose: Not Given - Labs Labs: 04/03/17 11:36 04/03/17 11:36 PT 14.1 SECONDS (9.7-12.2) H 03/29/17 14:10 INR 1.3 03/29/17 14:10 APTT 36 SECONDS (21-34) H 03/29/17 14:10
[2017-04-05] MEDS: Atropine-Diphenoxylate 0.025-2.5 mg Tab PO PRN (16:07)
--- NOTE | 2017-04-05 17:18 | PCM.HF ---
Heart Failure Core Measure - Heart Failure Ejection Fraction: 40 % or Greater (EF 57%) REINA Inhibitor Prescribed: No Contraindication/Reason for not providing: on arb Beta-Harshil Prescribed: Bisoprolol Angiotensin II Receptor Harshil Prescribed: Yes AnticoagulationTherapy for Atrial Fibrillation/Atrialflutter: No Contraindication/Reason for not providing: no afib Aldosterone Antagonist Prescribed: No Contraindication/Reason for not providing: ESRD Hydralazine Nitrate Prescribed: No Contraindication/Reason for not providing: on calcium channel harshil Implantable Cardioverter Defibrillator Therapy: No Contraindication/Reason for not providing: EF >40% Cardiac Resynchronization Therapy Prescribed: No Contraindication/Reason for not providing: not indicated - Follow up Will be discharged to: Home Follow Up Date (must be within 7 days from discharge): 04/09/17 Follow Up Time: 09:00
--- NOTE | 2017-04-05 17:29 | CP.PCM.PN ---
Subjective - Date & Time of Evaluation Date of Evaluation: 04/05/17 Time of Evaluation: 15:00 - Subjective Subjective: Patien t seen today after HD, denies any headache, abdominal pain, N/V , reported 1 loose BM Objective - Vital Signs/Intake and Output Vital Signs (last 24 hours): Temp Pulse Resp BP Pulse Ox 97.6 F 81 22 222/119 H 100 04/05/17 12:05 04/05/17 12:05 04/05/17 12:05 04/05/17 14:00 04/05/17 12:05 Intake and Output: 04/05/17 04/05/17 06:59 18:59 Intake Total 200 280 Balance 200 280 - Medications Medications: Current Medications Amlodipine Besylate (Norvasc) 10 mg PO DAILY [facility] Last Admin: 04/05/17 14:03 Dose: 10 mg Belladonna/Phenobarbital () 1 tab PO Q8 [facility] Last Admin: 04/05/17 14:01 Dose: 1 tab Calcitriol (Rocaltrol) 0.5 mcg PO TTS [facility] Last Admin: 04/05/17 12:06 Dose: Not Given Clonidine HCl (Catapres-Tts3 0.3 Mg/24 Hr) 1 patch TD QWK [facility] Last Admin: 04/05/17 14:04 Dose: 1 patch Clopidogrel Bisulfate (Plavix) 75 mg PO DAILY [facility] Last Admin: 04/05/17 14:03 Dose: 75 mg Dextrose (Dextrose 50% Inj) 0 ml IV STAT PRN; Protocol PRN Reason: Hyglycemia Protocol Last Admin: 04/02/17 07:05 Dose: 50 ml Dextrose (Glutose 15) 0 gm PO ONCE PRN; Protocol PRN Reason: Hypoglycemia Protocol Diphenoxylate HCl/Atropine (Lomotil 0.025-2.5 Mg Tablet) 1 tab PO Q4 PRN PRN Reason: Diarrhea Last Admin: 04/05/17 16:07 Dose: 1 tab Epoetin Tyree (Procrit) 4,000 unit IV TTS [facility] Last Admin: 04/05/17 10:32 Dose: 4,000 unit Glucagon (Glucagen Diagnostic Kit) 0 mg IM STAT PRN; Protocol PRN Reason: Hypoglycemia Protocol Heparin Sodium (Porcine) (Heparin) 5,000 units SC Q8 [facility] Last Admin: 04/05/17 14:02 Dose: 5,000 units Insulin Aspart (Novolog) 0 unit SC [facility] PRN Reason: Protocol Last Admin: 04/05/17 12:06 Dose: Not Given Insulin Glargine (Lantus) 10 unit SC HS [facility] Last Admin: 04/04/17 21:47 Dose: 10 u Isosorbide Mononitrate (Imdur) 120 mg PO DAILY [facility] Last Admin: 04/05/17 14:01 Dose: 120 mg Losartan Potassium (Cozaar) 100 mg PO DAILY [facility] Last Admin: 04/05/17 14:02 Dose: 100 mg Metronidazole (Flagyl) 500 mg PO Q8 [facility] Last Admin: 04/05/17 14:02 Dose: 500 mg Nebivolol (Bystolic) 20 mg PO DAILY [facility] Last Admin: 04/05/17 14:03 Dose: 20 mg Nitroglycerin (Nitro-Bid 2% Oint) 1 ea TOP Q6H PRN PRN Reason: BP Syst 170 and above Last Admin: 04/05/17 05:53 Dose: 1 ea Pregabalin (Lyrica) 100 mg PO BID [facility] Last Admin: 04/05/17 10:05 Dose: Not Given Risperidone (Risperdal Tab) 0.25 mg PO HS [facility] Last Admin: 04/04/17 21:48 Dose: 0.25 mg Rosuvastatin Calcium (Crestor) 10 mg PO HS [facility] Last Admin: 04/04/17 21:45 Dose: 10 mg Sevelamer Carbonate (Renvela) 1.6 gm PO DAILY [facility] Last Admin: 04/05/17 12:06 Dose: Not Given Vitamin B Complex/Vit C/Folic Acid (Nephro-Juan Manuel) 1 tab PO DAILY [facility] Last Admin: 04/05/17 10:05 Dose: Not Given - Labs Labs: 04/03/17 11:36 04/03/17 11:36 PT 14.1 SECONDS (9.7-12.2) H 03/29/17 14:10 INR 1.3 03/29/17 14:10 APTT 36 SECONDS (21-34) H 03/29/17 14:10 Assessment and Plan - Assessment and Plan (Free Text) Assessment: A/P 47 yr old male admitted for SOB, abdominal pain, bloating / acitis s/p paracentesis and fluid sent HD today bp noted elevated , pt not recieved any bp mmeds this am secondary to HD and all bp medication given after HD D/w Dr. Natarajan, cleared for discharge home today and f/u with PMD and continue HD as scheduled Discharge plan discussed with patient who understands and agrees with plan ( will recheck BP in 2 hrs and SBP less than 170 pt can be discharged home today, discussed with LEONORA Bailey )
[2017-04-05 18:37] VITALS: RESP 20; TEMP 98.6; O2SAT 96
[2017-04-05 18:59] VITALS: BP 167/85; PULSE 83
--- NOTE | 2017-04-05 20:54 | PN ---
DATE: LOCATION: [facility], [facility] B. SUBJECTIVE: This is a 47-year-old male seen and examined in rounds, was reported elevated blood pressure before. The patient denied any significant abdominal pain, headache, nausea or vomiting, blood transfusion; however, he reported loose bowel movement x1 only. No reported active bleeding. The entire chart is reviewed including but not limited to the most recent lab and radiology study results, current and previous medication list, current and previous medical events, allergies to medication list. Today's latest blood glucose level 197. PHYSICAL EXAMINATION: GENERAL: A 47-year-old male. VITAL SIGNS: Afebrile with a pulse of 82, blood pressure latest was reported 220/112 with respiratory rate 20-22. HEENT: Showed pale, dry oral mucous membrane. Nonicteric sclerae. LUNGS: Few scattered crepitation. Decreased air entry at bases. HEART: Positive S1 and S2. ABDOMEN: Soft, bowel sounds are present. No mass or organomegaly. No rebound tenderness or guarding with slight abdominal distention and ascites. The patient is status post ultrasound-guided abdominal paracentesis. EXTREMITIES: Small lower extremity edematous changes. No clubbing or cyanosis. NEUROLOGIC: No reported neurological deficits, sensory or motor. IMPRESSION: 1. Hepatosplenomegaly. 2. Liver cirrhosis. 3. Portal hypertension. 4. Ascites status post abdominal paracentesis done by the IR staff. 5. Known history of chronic obstructive pulmonary disease. 6. Hypertension. 7. End-stage renal disease by history. 8. Poorly controlled diabetes mellitus. 9. Anemia secondary to above. 10. Elevated carcinoembryonic antigen level. SUGGESTION: 1. Continue current management. 2. Correct any underlying electrolyte imbalance. 3. Control his hypertension prior to any admission. 4. Again the patient may need colonoscopy that could be done as an outpatient when he is more stable clinically. Further recommendation to follow. Geno Shen MD cc: Geno Shen MD
--- NOTE | 2017-04-05 21:54 | CP.PCM.DIS ---
Provider - Provider Date of Admission: 03/29/17 15:44 Attending physician: Siva Natarajan MD Time Spent in preparation of Discharge (in minutes): 56 Diagnosis - Discharge Diagnosis (1) Abdominal pain Status: Acute (2) CHF (congestive heart failure) Status: Acute (3) ESRD (end stage renal disease) on dialysis Status: Acute (4) Diarrhea Status: Acute (5) Fluid overload Status: Acute Hospital Course - Lab Results Lab Results: Micro Results 04/02/17 20:54 Stool Stool Culture - Final NO SALMONELLA, SHIGELLA OR CAMPYLOBACTER ISOLATED. Most Recent Lab Values WBC 6.1 K/uL (4.8-10.8) 04/03/17 11:36 RBC 4.00 Mil/uL (4.40-5.90) L 04/03/17 11:36 Hgb 10.6 g/dL (12.0-18.0) L 04/03/17 11:36 Hct 33.6 % (35.0-51.0) L 04/03/17 11:36 MCV 84.0 fL (80.0-94.0) 04/03/17 11:36 MCH 26.4 pg (27.0-31.0) L 04/03/17 11:36 MCHC 31.4 g/dL (33.0-37.0) L 04/03/17 11:36 RDW 17.6 % (11.5-14.5) H 04/03/17 11:36 Plt Count 145 K/uL (130-400) 04/03/17 11:36 MPV 11.2 fL (7.2-11.7) 04/03/17 11:36 Neut % (Auto) 70.9 % (50.0-75.0) 03/29/17 14:10 Lymph % (Auto) 14.2 % (20.0-40.0) L 03/29/17 14:10 [place] % (Auto) 12.1 % (0.0-10.0) H 03/29/17 14:10 Eos % (Auto) 2.0 % (0.0-4.0) 03/29/17 14:10 Baso % (Auto) 0.8 % (0.0-2.0) 03/29/17 14:10 Neut # 3.9 K/uL (1.8-7.0) 03/29/17 14:10 Lymph # 0.8 K/uL (1.0-4.3) L 03/29/17 14:10 [place] # 0.7 K/uL (0.0-0.8) 03/29/17 14:10 Eos # 0.1 K/uL (0.0-0.7) 03/29/17 14:10 Baso # 0.0 K/uL (0.0-0.2) 03/29/17 14:10 Differential Comment 03/29/17 14:10 PT 14.1 SECONDS (9.7-12.2) H 03/29/17 14:10 INR 1.3 03/29/17 14:10 APTT 36 SECONDS (21-34) H 03/29/17 14:10 Sodium 135 mmol/L (132-148) 04/03/17 11:36 Potassium 4.5 mmol/L (3.6-5.2) 04/03/17 11:36 Chloride 97 mmol/L (98-107) L 04/03/17 11:36 Carbon Dioxide 22 mmol/L (22-30) 04/03/17 11:36 Anion Gap 21 (10-20) H 04/03/17 11:36 BUN 53 mg/dL (9-20) H 04/03/17 11:36 Creatinine 7.1 mg/dL (0.8-1.5) H 04/03/17 11:36 Est GFR ( Amer) 10 04/03/17 11:36 Est GFR (Non-Af Amer) 8 04/03/17 11:36 POC Glucose (mg/dL) 197 mg/dL (65-110) H 04/05/17 17:19 Random Glucose 309 mg/dL (75-110) H 04/03/17 11:36 Hemoglobin A1c 9.3 % (4.2-6.5) H 04/03/17 06:43 Calcium 8.0 mg/dl (8.6-10.4) L 04/03/17 11:36 Phosphorus 4.3 mg/dL (2.5-4.5) 04/03/17 11:36 Total Bilirubin 1.0 mg/dL (0.2-1.3) 04/03/17 11:36 AST 25 U/L (17-59) 04/03/17 11:36 ALT 25 U/L (21-72) 04/03/17 11:36 Alkaline Phosphatase 400 U/L (38-126) H 04/03/17 11:36 Ammonia 21 umol/L (9-33) 03/29/17 14:10 NT-Pro-B Natriuret Pep 71331 pg/mL (0-450) H 03/29/17 14:10 Total Protein 8.2 g/dL (6.3-8.3) 04/03/17 11:36 Albumin 3.6 g/dL (3.5-5.0) 04/03/17 11:36 Globulin 4.7 gm/dL (2.2-3.9) H 04/03/17 11:36 Albumin/Globulin Ratio 0.8 (1.0-2.1) L 04/03/17 11:36 Amylase 79 U/L (30-110) 04/01/17 08:22 Lipase 86 U/L (23-300) 04/01/17 08:22 Alpha Fetoprotein 1.2 ng/mL (0.0-7.5) 04/03/17 14:25 Carcinoembryonic Ag 5.9 ng/mL (0-3.0) H 04/03/17 14:25 CA 19-9 Antigen 109 U/mL (0-37) H 04/01/17 11:35 Stool Leukocytes, Qual Negative (NEGATIVE) 04/02/17 20:54 C. difficile Ag & Toxin Negative (NEGATIVE) 04/02/17 20:54 Hepatitis C Antibody Negative (NEGATIVE) 03/31/17 10:03 - Hospital Course Hospital Course: A/P 47 yr old male admitted for SOB, abdominal pain, bloating / acitis s/p paracentesis and fluid sent HD today bp noted elevated , pt not recieved any bp mmeds this am secondary to HD and all bp medication given after HD cleared for discharge home today and f/u with PMD and continue HD as scheduled Discharge plan discussed with patient who understands and agrees with plan ( will recheck BP in 2 hrs and SBP less than 170 pt can be discharge home today ) Discharge Exam - Head Exam Head Exam: ATRAUMATIC, NORMAL INSPECTION, NORMOCEPHALIC - Eye Exam Eye Exam: EOMI, Normal appearance, PERRL Pupil Exam: NORMAL ACCOMODATION, PERRL - ENT Exam ENT Exam: Mucous Membranes Moist - Respiratory Exam Respiratory Exam: Clear to PA & Lateral, NORMAL BREATHING PATTERN - Cardiovascular Exam Cardiovascular Exam: REGULAR RHYTHM - GI/Abdominal Exam GI & Abdominal Exam: Normal Bowel Sounds, Soft - Rectal Exam Rectal Exam: Deferred Discharge Plan - Discharge Medications Prescriptions: Nebivolol [Bystolic] 20 mg PO DAILY #30 tab cloNIDine 0.3 mg/24 hr [catapres-TTS3 0.3 mg/24 hr] 1 patch TD FRI #4 patch metroNIDAZOLE [Flagyl] 500 mg PO Q8 #12 tab Isosorbide Mononitrate [Imdur] 120 mg PO DAILY #30 tab Atropine/Diphenoxylate [Lomotil 0.025-2.5 mg tablet] 1 tab PO Q6 PRN #10 tab PRN Reason: Diarrhea amLODIPine [Norvasc] 10 mg PO DAILY #30 tab Calcitriol [Rocaltrol] 0.5 mcg PO TTS #15 sgl Valsartan/Hydrochlorothiazide [Valsartan-Hctz 320-25 mg Tab] 1 tab PO DAILY #30 tablet - Follow Up Plan Condition: GUARDED Disposition: HOME/ ROUTINE Instructions: Diphenoxylate/Atropine (By mouth), Metronidazole (By mouth), Calcitriol (By mouth), Amlodipine (By mouth), Clonidine (Absorbed through the skin), Isosorbide Mononitrate (By mouth), Valsartan/Hydrochlorothiazide (By mouth), Nebivolol (By mouth), Heart Failure (DC), Dialysis Diet (DC), Abdominal Paracentesis (DC), Ascites (DC), End Stage Kidney Disease (DC) Additional Instructions: Please f/u with Dr.Wasseff jose valdez 1 week Please continue HD as scheduled continue medication as per Med. REc. PLEASE DIGITAL SPECIALIST MEDICATION FROM YOUR PHARMACY EXCEPT LAMOTIL Referrals: Siva Natarajan MD [Staff Provider] -
== END 2017-04-05 20:00 | disposition home or self-care (01) | DRG 291 ==
LOC: C.ER 13:26 → C.9E 15:44 → C.6T 16:19
PROVIDERS: ADMIT Internal Medicine; ATTEND Internal Medicine
PROC: 0W9G3ZZ Drainage of Peritoneal Cavity, Percutaneous Approach (ICD-10-PCS; principal; 2017-04-04)
PROC: 5A1D70Z Performance of Urinary Filtration, Intermittent, Less than 6 Hours Per Day (ICD-10-PCS; 2017-04-04)
DX: I13.2 Hypertensive heart and chronic kidney disease with heart failure and with stage 5 chronic kidney disease, or end stage renal disease (principal); N18.6 End stage renal disease; R18.8 Other ascites; D68.4 Acquired coagulation factor deficiency; K76.6 Portal hypertension; D69.6 Thrombocytopenia, unspecified; K56.7 Ileus, unspecified; N25.81 Secondary hyperparathyroidism of renal origin; E11.22 Type 2 diabetes mellitus with diabetic chronic kidney disease; D64.9 Anemia, unspecified; E11.65 Type 2 diabetes mellitus with hyperglycemia; E78.00 Pure hypercholesterolemia, unspecified; I50.9 Heart failure, unspecified; K29.00 Acute gastritis without bleeding; K52.9 Noninfective gastroenteritis and colitis, unspecified; K74.60 Unspecified cirrhosis of liver; K75.9 Inflammatory liver disease, unspecified; Z87.891 Personal history of nicotine dependence; Z99.2 Dependence on renal dialysis; R16.2 Hepatomegaly with splenomegaly, not elsewhere classified; J44.9 Chronic obstructive pulmonary disease, unspecified; R97.0 Elevated carcinoembryonic antigen [CEA]

== ENCOUNTER 2017-07-15 04:10 | Emergency (ER) | payer MEDICARE, MEDICAID ==
[2017-07-15 04:12] VITALS: BMI 28.5
[2017-07-15] MEDS ORDERED: Oxycodone/Acetaminophen 5/325 mg Tab PO STA (05:16)
[2017-07-15] MEDS ORDERED: Oxycodone/Acetaminophen 5/325 mg Tab ONE (05:21)
--- NOTE | 2017-07-15 06:23 | CT ---
EXAM: CT Head Without Intravenous Contrast CLINICAL HISTORY: 47 years old, male; Injury or trauma; Fall; Initial encounter; Blunt trauma (contusions or hematomas); Consciousness not specified; Additional info: Fall, head injury, severe headache TECHNIQUE: Axial computed tomography images of the head/brain without intravenous contrast. All CT scans at this facility use one or more dose reduction techniques, viz.: automated exposure control; ma/kV adjustment per patient size (including targeted exams where dose is matched to indication; i.e. head); or iterative reconstruction technique. 823 images are submitted. Coronal and sagittal reformatted images were created and reviewed. COMPARISON: No relevant prior studies available. FINDINGS: Brain: Bilateral eye lenses are not well seen. Correlation with patient's ophthalmic history is recommended. No hemorrhage. No significant white matter disease. Ventricles: Unremarkable. No ventriculomegaly. Bones/joints: Unremarkable. No acute fracture. Soft tissues: Nonspecific scalp soft tissue swelling and infiltration near the vertex.. Vasculature: Vascular calcifications. Sinuses: Left maxillary sinus mucus retention cyst and/or polyp. Moderate right maxillary sinus disease. Mastoid air cells: Unremarkable. No mastoid effusion. Dental: Edentulous maxilla and mandible. IMPRESSION: No evidence of an acute intracranial hemorrhage, midline shift or mass effect is identified.
--- NOTE | 2017-07-15 06:27 | CT ---
EXAM: CT Cervical Spine Without Intravenous Contrast CLINICAL HISTORY: 47 years old, male; Injury or trauma; Fall; Initial encounter; Sprain or strain, cervical ligaments; Additional info: Pain, fall TECHNIQUE: Axial computed tomography images of the cervical spine without intravenous contrast. All CT scans at this facility use one or more dose reduction techniques, viz.: automated exposure control; ma/kV adjustment per patient size (including targeted exams where dose is matched to indication; i.e. head); or iterative reconstruction technique. 474 images are submitted. Coronal and sagittal reformatted images were created and reviewed. COMPARISON: No relevant prior studies available. FINDINGS: Vertebrae: Unremarkable. No acute fracture. Discs/spinal canal/neural foramina: No acute findings. No spinal canal stenosis. Soft tissues: Unremarkable. Vasculature: Bilateral upper lobe pulmonary vascular congestion with patchy parenchymal infiltration. Correlation with patient's hydration status is recommended. Vascular calcifications. These are more advanced than what is expected for patient's young age. Sinuses: Moderate right maxillary sinus disease. Left maxillary sinus mucus retention cyst and/or polyp. Patchy sinus disease. Thyroid: Heterogeneous enlargement of thyroid gland. Esophagus: Nonspecific air distention of the esophagus with wall thickening. Correlation with clinical data is recommended if esophagitis versus achalasia or severe achalasia is clinically suspected. Lung apices: See above. IMPRESSION: 1. There is no acute fracture of cervical spine. 2. Bilateral upper lobe pulmonary vascular congestion with patchy parenchymal infiltration. Correlation with patient's hydration status is recommended. 3. Nonspecific air distention of the esophagus with wall thickening. Correlation with clinical data is recommended if esophagitis versus achalasia or severe achalasia is clinically suspected.
--- NOTE | 2017-07-15 06:30 | C.PDOC ---
History Of Present Illness 47 year old male presents to the ER via EMS s/p fall after he missed a step while going up the stairs to his house and fell backwards down 5 steps, hitting the left side of his head. Patient is now complaining of severe headache and neck pain. Denies LOC, nausea, vomiting, or blurry vision. - HPI Time Seen by Provider: 07/15/17 05:03 Chief Complaint (Nursing): Trauma History Per: Patient History/Exam Limitations: no limitations Onset/Duration Of Symptoms: Hrs Injury Occurred (Timing): Just Before Arrival Location Of Injury: Posterior: Head Recent travel outside of the [place]: No - Fall Fall:Prior To Injury: Tripped Past Medical History Reviewed: Historical Data, Nursing Documentation, Vital Signs Vital Signs: Last Vital Signs Temp 99.4 F 07/15/17 06:51 Pulse 89 07/15/17 06:51 Resp 18 07/15/17 06:51 BP 174/93 H 07/15/17 06:51 Pulse Ox 96 07/15/17 06:54 - Medical History PMH: Anemia, CHF, COPD, Depression, HTN, Hypercholesterolemia, Peripheral Edema , End Stage Renal Disease, Chronic Kidney Disease - [facility] Procedures (05/19/17) BYPASS LEFT BRACHIAL ARTERY TO UPPER ARM VEIN, OPEN APPROACH (05/24/15) DRAINAGE OF PERITONEAL CAVITY, PERCUTANEOUS APPROACH (05/19/17) EXTIRPATION OF MATTER FROM L BRACH ART, OPEN APPROACH (05/24/15) INSPECTION OF UPPER INTESTINAL TRACT, ENDO (06/23/16) PERFORMANCE OF URINARY FILTRATION, SINGLE (06/23/16) Family History: States: Unknown Family Hx - Social History Hx Alcohol Use: Yes (FORMER) Hx Substance Use: No - Immunization History Hx Tetanus Toxoid Vaccination: Yes Hx Influenza Vaccination: Yes Hx Pneumococcal Vaccination: Yes Review Of Systems Eyes: Negative for: Vision Change Gastrointestinal: Negative for: Nausea, Vomiting Musculoskeletal: Positive for: Neck Pain Neurological: Positive for: Headache. Negative for: Other (LOC) Physical Exam - Physical Exam Appears: Non-toxic Skin: Warm, Dry Head: Normacephalic, Other (Hematoma to left parietal scalp area) Eye(s): bilateral: Normal Inspection Ear(s): Bilateral: Normal Oral Mucosa: Moist Neck: No Midline Cervical Tenderness, Paracervical Tenderness (Diffuse posterior ), Supple, Other (C collar in place) Gastrointestinal/Abdominal: Ascites (Chronic- seen and d/c earlier at [facility] for same ) Back: Normal Inspection, No Vertebral Tenderness, No Paraspinal Tenderness Extremity: Normal ROM (x4), No Tenderness Neurological/Psych: Oriented x3, Normal Speech, Normal Motor, Normal Sensation, Other (No focal deficits) Gait: Unable To Assess ED Course And Treatment O2 Sat by Pulse Oximetry: 96 (Room air) Pulse Ox Interpretation: Normal - CT Scan/US CT Head Other Rad Studies (CT/US): Read By Radiologist, Radiology Report Reviewed CT/US Interpretation: EXAM: CT Head Without Intravenous Contrast. CLINICAL HISTORY: 47 years old, male; Injury or trauma; Fall; Initial encounter; Blunt trauma (contusions or hematomas);. Consciousness not specified; Additional info : Fall, head injury, severe headache. TECHNIQUE: Axial computed tomography images of the head/brain without intravenous contrast. All CT scans at. this facility use one or more dose reduction techniques, viz.: automated exposure control; ma/kV. adjustment per patient size (including targeted exams where dose is matched to indication; i.e. head);. or iterative reconstruction technique. 823 images are submitted. Coronal and sagittal reformatted images were created and reviewed. COMPARISON: No relevant prior studies available. FINDINGS: Brain: Bilateral eye lenses are not well seen. Correlation with patient's ophthalmic history is. recommended. No hemorrhage. No significant white matter disease. Ventricles: Unremarkable. No ventriculomegaly. Bones/ joints: Unremarkable. No acute fracture. Soft tissues: Nonspecific scalp soft tissue swelling and infiltration near the vertex.. Vasculature: Vascular calcifications. Sinuses: Left maxillary sinus mucus retention cyst and/or polyp. Moderate right maxillary sinus. disease. Mastoid air cells: Unremarkable. No mastoid effusion. Dental: Edentulous maxilla and mandible. IMPRESSION: No evidence of an acute intracranial hemorrhage, midline shift or mass effect is identified. CT Cervical spine Other Rad Studies (CT/US): Read By Radiologist, Radiology Report Reviewed CT/US Interpretation: EXAM: CT Cervical Spine Without Intravenous Contrast. CLINICAL HISTORY: 47 years old, male; Injury or trauma; Fall; Initial encounter ; Sprain or strain, cervical ligaments;. Additional info: Pain, fall. TECHNIQUE: Axial computed tomography images of the cervical spine without intravenous contrast. All CT scans. at this facility use one or more dose reduction techniques, viz.: automated exposure control; ma/kV. adjustment per patient size (including targeted exams where dose is matched to indication; i.e. head);. or iterative reconstruction technique. 474 images are submitted. Coronal and sagittal reformatted images were created and reviewed. COMPARISON: No relevant prior studies available. FINDINGS: Vertebrae: Unremarkable. No acute fracture. Discs/spinal canal/neural foramina: No acute findings. No spinal canal stenosis. Soft tissues: Unremarkable. Vasculature: Bilateral upper lobe pulmonary vascular congestion with patchy parenchymal. infiltration. Correlation with patient's hydration status is recommended. Vascular calcifications. These are more advanced than what is expected for patient's young age. Sinuses: Moderate right maxillary sinus disease. Left maxillary sinus mucus retention cyst and/or. polyp. Patchy sinus disease. Thyroid: Heterogeneous enlargement of thyroid gland. Esophagus: Nonspecific air distention of the esophagus with wall thickening. Correlation with. clinical data is recommended if esophagitis versus achalasia or severe achalasia is clinically. suspected. Lung apices: See above. IMPRESSION: 1. There is no acute fracture of cervical spine. 2. Bilateral upper lobe pulmonary vascular congestion with patchy parenchymal infiltration. Correlation with patient's hydration status is recommended. 3. Nonspecific air distention of the esophagus with wall thickening. Correlation with clinical data is. recommended if esophagitis versus achalasia or severe achalasia is clinically suspected. Progress Note: Percocet administered for pain with relief. CT head and cervical spine ordered, results were negative. Patient is resting comfortably in the ER in no distress, no longer with headache or neck pain, able to ambulate with a cane with a limp- pt states chronic. Will discharge home with Rx and instructions to follow up with PMD for further evaluation, or return to ER if symptoms worsen. Reevaluation Time: 06:58 Reassessment Condition: Improved Disposition - Disposition Referrals: Yon Vega MD [Non-Staff] - Disposition: HOME/ ROUTINE Disposition Time: 06:51 Condition: STABLE Additional Instructions: Take meds as directed for pain Follow up with DR vega Apply ICE pack to scalp Return to ER if sever pain,or worse Instructions: Head Injury (ED), Cervical Sprain (ED) Forms: [employer] (Vietnamese) - Clinical Impression Clinical Impression: Head injury, Neck pain, Status post fall - PA / HSE SPECIALIST / Resident Statement MD/DO has reviewed & agrees with the documentation as recorded. - Scribe Statement The provider has reviewed the documentation as recorded by the Scribbereket Cooper All medical record entries made by the Sandra were at my direction and personally dictated by me. I have reviewed the chart and agree that the record accurately reflects my personal performance of the history, physical exam, medical decision making, and the department course for this patient. I have also personally directed, reviewed, and agree with the discharge instructions and disposition.
[2017-07-15 07:32] VITALS: TEMP 98.9
[2017-07-15 10:20] VITALS: BP 165/92; PULSE 85; RESP 17; O2SAT 98
== END 2017-07-15 11:33 | disposition home or self-care (01) ==
LOC: C.ER 04:10
DX: S09.90XA Unspecified injury of head, initial encounter (principal); W10.9XXA Fall (on) (from) unspecified stairs and steps, initial encounter; M54.2 Cervicalgia; E78.00 Pure hypercholesterolemia, unspecified; I12.0 Hypertensive chronic kidney disease with stage 5 chronic kidney disease or end stage renal disease; N18.6 End stage renal disease; J44.9 Chronic obstructive pulmonary disease, unspecified

== ENCOUNTER 2017-07-26 12:32 | Inpatient (IN) | payer MEDICARE, MEDICAID ==
[2017-07-26 12:32] VITALS: BMI 28.5
--- NOTE | 2017-07-26 14:08 | C.PDOC ---
History Of Present Illness 47 y/o male presents, whose PMHx includes liver cirrhosis, DM, HTN, and ESRD on Dialysis, presents to the ED for evaluation of abdominal distention. He notes that he had paracentesis last month and since it has progressively been increasing in size. (+) SOB. On the way to dialysis today, he came to ER instead. Denies fever, chest pain, abdominal pain, n/v, or headache. Time Seen by Provider: 07/26/17 13:22 Chief Complaint (Nursing): Abdominal Pain History Per: Patient History/Exam Limitations: no limitations Onset/Duration Of Symptoms: Intermittent Episodes Current Symptoms Are (Timing): Still Present Quality Of Discomfort: "Pain" Associated Symptoms: denies: Fever, Chills Additional History Per: Patient Past Medical History Reviewed: Historical Data, Nursing Documentation, Vital Signs Vital Signs: Last Vital Signs Temp 98 F 07/27/17 14:20 Pulse 87 07/27/17 14:20 Resp 18 07/27/17 14:20 BP 170/90 H 07/27/17 16:35 Pulse Ox 98 07/27/17 14:20 - Medical History PMH: Anemia, CHF, COPD, Depression, HTN, Hypercholesterolemia, Peripheral Edema , End Stage Renal Disease, Chronic Kidney Disease Denies: Kidney Stones Surgical History: No Surg Hx - [facility] Procedures (05/19/17) BYPASS LEFT BRACHIAL ARTERY TO UPPER ARM VEIN, OPEN APPROACH (05/24/15) DRAINAGE OF PERITONEAL CAVITY, PERCUTANEOUS APPROACH (05/19/17) EXTIRPATION OF MATTER FROM L BRACH ART, OPEN APPROACH (05/24/15) INSPECTION OF UPPER INTESTINAL TRACT, ENDO (06/23/16) PERFORMANCE OF URINARY FILTRATION, SINGLE (06/23/16) Family History: States: Unknown Family Hx - Social History Hx Alcohol Use: Yes (FORMER) Hx Substance Use: No - Immunization History Hx Tetanus Toxoid Vaccination: Yes Hx Influenza Vaccination: Yes Hx Pneumococcal Vaccination: Yes Review Of Systems Constitutional: Negative for: Fever, Chills Respiratory: Negative for: Shortness of Breath Gastrointestinal: Positive for: Other (abdominal distention ) Physical Exam - Physical Exam Appears: Non-toxic, No Acute Distress Skin: Normal Color, Warm, Dry, Other (4 inch healing wound to distal left forearm) Head: Atraumatic, Normacephalic Eye(s): bilateral: Normal Inspection Nose: Normal Oral Mucosa: Moist Neck: Normal ROM, Supple Chest: Symmetrical, No Deformity, No Tenderness Cardiovascular: Rhythm Regular, No Murmur Respiratory: No Rales, No Rhonchi, Wheezing Gastrointestinal/Abdominal: Soft, No Tenderness, Distention, No Guarding, No Rebound Extremity: Normal ROM, Capillary Refill (less than 2 seconds ) Neurological/Psych: Oriented x3, Normal Speech, Normal Cognition Gait: Steady ED Course And Treatment - Laboratory Results Result Diagrams: 07/26/17 14:06 07/26/17 14:06 ECG: Interpreted By Me, Viewed By Me ECG Rhythm: Sinus Rhythm Rate From EC (BPM) O2 Sat by Pulse Oximetry: 96 (on RA) Pulse Ox Interpretation: Normal Progress Note: Bloodwork ordered and reviewed. Albuterol INH administered. Case discussed with Dr. Natarajan, who agrees with plan and admission. Spoke to patient's nephorologist Dr. Owen, agreed upon plan and dialysis. Disposition - Disposition Disposition: HOSPITALIZED Disposition Time: 18:00 Condition: STABLE - Clinical Impression Clinical Impression: ESRD (end stage renal disease) on dialysis, Alcoholic cirrhosis of liver with ascites - PA / DOG CONTROL OFFICER / Resident Statement MD/DO has reviewed & agrees with the documentation as recorded. - Scribe Statement The provider has reviewed the documentation as recorded by the Scribe (Paula Mandujano) All medical record entries made by the Scribe were at my direction and personally dictated by me. I have reviewed the chart and agree that the record accurately reflects my personal performance of the history, physical exam, medical decision making, and the department course for this patient. I have also personally directed, reviewed, and agree with the discharge instructions and disposition.
[2017-07-26 14:09] LABS: BASO % 0.9 % (0.0-2.0); EOS # 0.1 K/uL (0.0-0.7); EOS % 2.3 % (0.0-4.0); HEMOGLOBIN 9.2 g/dL (12.0-18.0); LYMPH # 1.5 K/uL (1.0-4.3); LYMPH % 25.3 % (20.0-40.0); MEAN CELL VOLUME 81.7 fL (80.0-94.0); MEAN CORPUSCULAR HEMOGLOBIN 26.3 pg (27.0-31.0); MEAN CORPUSCULAR HGB CONC 32.2 g/dL (33.0-37.0); MEAN PLATELET VOLUME 8.4 fL (7.2-11.7); MONO # 0.6 K/uL (0.0-0.8); MONO % 10.4 % (0.0-10.0); NEUT # 3.5 K/uL (1.8-7.0); NEUT % 61.1 % (50.0-75.0); RBC 3.49 Mil/uL (4.40-5.90); RED CELL DISTRIBUTION WIDTH 18.3 % (11.5-14.5); WHITE BLOOD COUNT 5.8 K/uL (4.8-10.8)
[2017-07-26 14:21] LABS: INR 1.2
[2017-07-26] MEDS ORDERED: Albuterol-Ipratrop 3 mg / 0.5 (3 ml) UD INH STA (14:24)
[2017-07-26] MEDS ORDERED: Albuterol-Ipratrop 3 mg / 0.5 (3 ml) UD ONE (14:46)
[2017-07-26 15:18] LABS: ALB/GLOB RATIO 0.6 (1.0-2.1); ALBUMIN 3.1 g/dL (3.5-5.0); CALCIUM 7.2 mg/dl (8.6-10.4)
[2017-07-26] MEDS ORDERED: EPOETIN ALFA 4,000 UNIT/ML ML Dialysis SC ONE (15:47)
[2017-07-26] MEDS ORDERED: EPOETIN ALFA 4,000 UNIT/ML ML Dialysis IV ONE ×2 (19:48→19:49)
[2017-07-26] MEDS ORDERED: Nitroglycerin 2% Ointment Foilpak UD TOP ONE (21:49)
--- NOTE | 2017-07-26 23:55 | CP.PCM.HP ---
History of Present Illness - History of Present Illness History of Present Illness: Chief Complaint : Abdominal Pain HPI: 47 y/o male presents, whose PMHx includes liver cirrhosis, DM, HTN, and ESRD on Dialysis, presents to the ED for evaluation of worsening abdominal distention that has been intermittent for a few months. Patient states he underwent multiple paracentesis in the past and is requesting another one. He has not attended dialysis today and denies fever, chills, shortness of breath. Present on Admission - Present on Admission Any Indicators Present on Admission: Yes Review of Systems - Review of Systems Systems not reviewed;Unavailable: Acuity of Condition - Constitutional Constitutional: Fatigue, Lethargy, Malaise, Weakness - EENT Eyes: absent: As Per HPI, Blind Spots, Blurred Vision, Change in Vision, Decreased Night Vision, Diplopia, Discharge, Dry Eye, Exophthalmos, Floaters, Irritation, Itchy Eyes, Loss of Peripheral Vision, Pain, Photophobia, Requires Corrective Lenses, Sees Flashes, Spots in Vision, Tunnel Vision, Other Visual Disturbances, Loss of Vision, Other Ears: absent: As Per HPI, Decreased Hearing, Ear Discharge, Ear Pain, Tinnitus, Abnormal Hearing, Disequilibrium, Dizziness, Other Nose/Mouth/Throat: absent: As Per HPI, Epistaxis, Nasal Congestion, Nasal Discharge, Nasal Obstruction, Nasal Trauma, Nose Pain, Post Nasal Drip, Sinus Pain, Sinus Pressure, Bleeding Gums, Change in Voice, Dental Pain, Dry Mouth, Dysphagia, Halitosis, Hoarsness, Lip Swelling, Mouth Lesions, Mouth Pain, Odynophagia, Sore Throat, Throat Swelling, Tongue Swelling, Facial Pain, Neck Pain, Neck Mass, Other - Cardiovascular Cardiovascular: absent: As Per HPI, Acrocyanosis, Chest Pain, Chest Pain at Rest , Chest Pain with Activity, Claudication, Diaphoresis, Dyspnea, Dyspnea on Exertion, Edema, Irregular Heart Rhythm, Pain Radiating to Arm/Neck/Jaw, Leg Edema, Leg Ulcers, Lightheadedness, Orthopnea, Palpitations, Paroxysmal Nocturnal Dyspnea, Pedal Edema, Radiating Pain, Rapid Heart Rate, Slow Heart Rate, Syncope, Other - Respiratory Respiratory: Cough, Dyspnea, Wheezing, Snoring - Gastrointestinal Gastrointestinal: Abdominal Pain. absent: As Per HPI, Belching, Bloating, Change in Bowel Habits, Change in Stool Character, Coffee Ground Emesis, Constipation, Cramping, Diarrhea, Dyspepsia, Dysphagia, Early Satiety, Excessive Flatus, Fecal Incontinence, Heartburn, Hematemesis, Hematochezia, Loose Stools, Melena, Nausea, Odynophagia, Temesmus, Vomiting, Other - Genitourinary Genitourinary: absent: As Per HPI, Change in Urinary Stream, Difficulty Urinating, Dysuria, Flank Pain, Hematuria, Pyuria, Nocturia, Urinary Incontinence, Urinary Frequency, Urinary Hesitance, Urinary Urgency, Voiding Freq/Small Amts, Freq UTI, Hx Renal/Bladder Calculi, Hx /Renal Surgery, Bladder Distension, Other Past Patient History - Infectious Disease Hx of Infectious Diseases: None - Past Medical History & Family History Past Medical History?: Yes - Past Social History Smoking Status: Never Smoked - CARDIAC Hx Congestive Heart Failure: Yes Hx Hypercholesterolemia: Yes Hx Hypertension: Yes Hx Peripheral Edema: Yes - PULMONARY Hx Chronic Obstructive Pulmonary Disease (COPD): Yes - NEUROLOGICAL Hx Neurological Disorder: No - HEENT Hx HEENT Problems: Yes Hx Blind: Yes (BLIND LEFT EYE) - RENAL Hx Chronic Kidney Disease: Yes Hx Kidney Stones: No - ENDOCRINE/METABOLIC Hx Endocrine Disorders: Yes Hx Diabetes Mellitus Type 2: Yes - HEMATOLOGICAL/ONCOLOGICAL Hx Anemia: Yes - INTEGUMENTARY Hx Dermatological Problems: Yes (DARK SPOTS GENERALIZED) Other/Comment: mutiple scars all over his body - MUSCULOSKELETAL/RHEUMATOLOGICAL Hx Musculoskeletal Disorders: Yes Hx Falls: Yes - GASTROINTESTINAL Hx Gastrointestinal Disorders: No - GENITOURINARY/GYNECOLOGICAL Other/Comment: chronic Kidney disease - PSYCHIATRIC Hx Depression: Yes Hx Substance Use: No - SURGICAL HISTORY Hx Surgeries: Yes Hx Amputation: Yes (LEFT BIG TOE) Hx Vascular Access Device: Yes Other/Comment: laser on both eyes,insertion of mercy on his neck secondary to decayed clavicle. - ANESTHESIA Hx Anesthesia: Yes Hx Anesthesia Reactions: No Hx Malignant Hyperthermia: No Meds Allergies/Adverse Reactions: Allergies Allergy/AdvReac Type Severity Reaction Status Date / Time mushroom Allergy Intermediate RASH Verified 07/26/17 13:05 Physical Exam - Constitutional Appears: Chronically Ill Additional comments: in mild distress - Head Exam Head Exam: ATRAUMATIC, NORMAL INSPECTION, NORMOCEPHALIC - Eye Exam Eye Exam: EOMI, Normal appearance, PERRL Pupil Exam: NORMAL ACCOMODATION, PERRL - Respiratory Exam Respiratory Exam: Clear to Auscultation Bilateral, NORMAL BREATHING PATTERN - Cardiovascular Exam Cardiovascular Exam: REGULAR RHYTHM - GI/Abdominal Exam GI & Abdominal Exam: Distended Additional comments: positive fluid thrill - Rectal Exam Rectal Exam: Deferred - Extremities Exam Extremities exam: Positive for: pedal edema - Neurological Exam Neurological exam: Alert, Oriented x3 Results - Vital Signs Recent Vital Signs: Last Vital Signs Temp 97.9 F 07/26/17 22:15 Pulse 82 07/26/17 22:15 Resp 16 07/26/17 22:15 BP 162/90 H 07/26/17 22:15 Pulse Ox 98 07/26/17 22:15 - Labs Result Diagrams: 07/26/17 14:06 07/26/17 14:06 Labs: Laboratory Results - last 24 hr 07/26/17 07/26/17 07/26/17 14:06 14:06 14:06 WBC 5.8 RBC 3.49 L Hgb 9.2 L Hct 28.5 L MCV 81.7 MCH 26.3 L MCHC 32.2 L RDW 18.3 H Plt Count 184 MPV 8.4 Neut % (Auto) 61.1 Lymph % (Auto) 25.3 Williams % (Auto) 10.4 H Eos % (Auto) 2.3 Baso % (Auto) 0.9 Neut # (Auto) 3.5 Lymph # (Auto) 1.5 Williams # (Auto) 0.6 Eos # (Auto) 0.1 Baso # (Auto) 0.0 PT 13.0 H INR 1.2 APTT 28 Sodium 133 Potassium 5.0 Chloride 93 L Carbon Dioxide 26 Anion Gap 19 BUN 65 H Creatinine 10.9 H* D Est GFR ( Amer) 6 Est GFR (Non-Af Amer) 5 Random Glucose 148 H Calcium 7.2 L Total Bilirubin 0.6 AST 30 ALT 28 Alkaline Phosphatase 114 Total Protein 7.8 Albumin 3.1 L Globulin 4.7 H Albumin/Globulin Ratio 0.6 L Assessment & Plan (1) Abdominal discomfort Status: Acute (2) Alcoholic cirrhosis of liver with ascites Status: Acute (3) Anemia Status: Acute (4) CHF (congestive heart failure) Status: Acute (5) CKD (chronic kidney disease) Status: Acute (6) Diabetes mellitus Status: Acute
[2017-07-27] MEDS: (Novolin R) Insulin Human Regular 100 units/ml vial SC SCH ×4 (08:05→21:43)
[2017-07-27] MEDS: (Novolog) Insulin Aspart, Recombinant 100 u/ml 10 ml vial SC SCH ×3 (09:57→18:47)
--- NOTE | 2017-07-27 11:54 | CP.PCM.CON ---
History of Present Illness - History of Present Illness History of Present Illness: This patient who is 47 years of age admitted from the emergency room was increased shortness of breath and distention of the abdomen and I was called for consultation because he is chronic kidney disease on dialysis. Patient received emergency dialysis last night and remove about 2-1/2 L of fluid. Patient has multiple paracentesis in the past and he has history of liver cirrhosis as well as diabetes mellitus in addition to that end stage renal disease on dialysis Past medical history as mentioned above Social history not contributory Review of Systems - Constitutional Constitutional: Anorexia, Malaise. absent: Chills - EENT Eyes: Blurred Vision Nose/Mouth/Throat: absent: Epistaxis, Nasal Discharge - Cardiovascular Cardiovascular: Dyspnea, Edema, Leg Edema. absent: Acrocyanosis, Chest Pain - Respiratory Respiratory: Dyspnea, Chest Congestion. absent: Hemoptysis - Gastrointestinal Gastrointestinal: Abdominal Pain, Belching, Bloating. absent: Coffee Ground Emesis, Diarrhea, Vomiting - Genitourinary Genitourinary: Nocturia. absent: Hematuria - Musculoskeletal Musculoskeletal: Abnormal Gait, Back Pain, Muscle Weakness. absent: Myalgias, Numbness - Integumentary Integumentary: As Per HPI - Neurological Neurological: Abnormal Gait. absent: Confusion, Dizziness, Numbness, Focal Weakness - Psychiatric Psychiatric: absent: Anxiety, Mood Swings - Endocrine Endocrine: Fatigue - Hematologic/Lymphatic Hematologic: absent: Easy Bleeding Past Patient History - Infectious Disease Hx of Infectious Diseases: None - Past Medical History & Family History Past Medical History?: Yes - Past Social History Smoking Status: Never Smoked - CARDIAC Hx Congestive Heart Failure: Yes Hx Hypercholesterolemia: Yes Hx Hypertension: Yes Hx Peripheral Edema: Yes - PULMONARY Hx Chronic Obstructive Pulmonary Disease (COPD): Yes - NEUROLOGICAL Hx Neurological Disorder: No - HEENT Hx HEENT Problems: Yes Hx Blind: Yes (BLIND LEFT EYE) - RENAL Hx Chronic Kidney Disease: Yes Hx Kidney Stones: No - ENDOCRINE/METABOLIC Hx Endocrine Disorders: Yes Hx Diabetes Mellitus Type 2: Yes - HEMATOLOGICAL/ONCOLOGICAL Hx Anemia: Yes - INTEGUMENTARY Hx Dermatological Problems: Yes (DARK SPOTS GENERALIZED) Other/Comment: mutiple scars all over his body - MUSCULOSKELETAL/RHEUMATOLOGICAL Hx Musculoskeletal Disorders: Yes Hx Falls: Yes - GASTROINTESTINAL Hx Gastrointestinal Disorders: No - GENITOURINARY/GYNECOLOGICAL Other/Comment: chronic Kidney disease - PSYCHIATRIC Hx Depression: Yes Hx Substance Use: No - SURGICAL HISTORY Hx Surgeries: Yes Hx Amputation: Yes (LEFT BIG TOE) Hx Vascular Access Device: Yes Other/Comment: laser on both eyes,insertion of mercy on his neck secondary to decayed clavicle. - ANESTHESIA Hx Anesthesia: Yes Hx Anesthesia Reactions: No Hx Malignant Hyperthermia: No Meds Allergies/Adverse Reactions: Allergies Allergy/AdvReac Type Severity Reaction Status Date / Time mushroom Allergy Intermediate RASH Verified 07/26/17 13:05 - Medications Medications: Current Medications Clonidine HCl (Catapres) 0.2 mg PO TID [facility] Last Admin: 07/27/17 09:57 Dose: 0.2 mg Heparin Sodium (Porcine) (Heparin) 5,000 units SC Q8 [facility] Last Admin: 07/27/17 06:20 Dose: 5,000 units Insulin Aspart (Novolog) 3 unit SC TID [facility] Last Admin: 07/27/17 09:57 Dose: 3 unit Insulin Detemir (Levemir) 12 unit SC HS [facility] Insulin Human Regular (Novolin R) 0 unit SC ACHS [facility] PRN Reason: Protocol Last Admin: 07/27/17 08:05 Dose: Not Given Lactulose (Enulose) 20 gm PO HS [facility] Losartan Potassium (Cozaar) 50 mg PO DAILY [facility] Last Admin: 07/27/17 09:56 Dose: 50 mg Ondansetron HCl (Zofran Inj) 4 mg IVP Q6 PRN PRN Reason: Nausea/Vomiting Last Admin: 07/27/17 11:14 Dose: 4 mg Physical Exam - Constitutional Appears: No Acute Distress - Eye Exam Eye Exam: Conjunctival injection - ENT Exam ENT Exam: Mucous Membranes Moist - Neck Exam Neck exam: Negative for: Lymphadenopathy - Respiratory Exam Respiratory Exam: Rhonchi, NORMAL BREATHING PATTERN. absent: Chest Wall Tenderness - Cardiovascular Exam Cardiovascular Exam: absent: Gallop, JVD, Rubs - GI/Abdominal Exam GI & Abdominal Exam: Distended, Normal Bowel Sounds Additional comments: massive ascites - Extremities Exam Extremities exam: Positive for: pedal edema. Negative for: calf tenderness - Back Exam Back exam: absent: CVA tenderness (L), CVA tenderness (R) - Neurological Exam Neurological exam: Alert - Skin Skin Exam: Warm Results - Vital Signs Recent Vital Signs: Last Vital Signs Temp 98.1 F 07/27/17 08:01 Pulse 82 07/27/17 08:01 Resp 18 07/27/17 08:01 BP 166/90 H 07/27/17 08:01 Pulse Ox 99 07/27/17 08:01 - Labs Result Diagrams: 07/26/17 14:06 07/26/17 14:06 Labs: Laboratory Results - last 24 hr 07/26/17 07/26/17 07/26/17 14:06 14:06 14:06 WBC 5.8 RBC 3.49 L Hgb 9.2 L Hct 28.5 L MCV 81.7 MCH 26.3 L MCHC 32.2 L RDW 18.3 H Plt Count 184 MPV 8.4 Neut % (Auto) 61.1 Lymph % (Auto) 25.3 Bledsoe % (Auto) 10.4 H Eos % (Auto) 2.3 Baso % (Auto) 0.9 Neut # (Auto) 3.5 Lymph # (Auto) 1.5 Bledsoe # (Auto) 0.6 Eos # (Auto) 0.1 Baso # (Auto) 0.0 PT 13.0 H INR 1.2 APTT 28 Sodium 133 Potassium 5.0 Chloride 93 L Carbon Dioxide 26 Anion Gap 19 BUN 65 H Creatinine 10.9 H* D Est GFR ( Amer) 6 Est GFR (Non-Af Amer) 5 POC Glucose (mg/dL) Random Glucose 148 H Calcium 7.2 L Total Bilirubin 0.6 AST 30 ALT 28 Alkaline Phosphatase 114 Total Protein 7.8 Albumin 3.1 L Globulin 4.7 H Albumin/Globulin Ratio 0.6 L 07/27/17 06:40 WBC RBC Hgb Hct MCV MCH MCHC RDW Plt Count MPV Neut % (Auto) Lymph % (Auto) Bledsoe % (Auto) Eos % (Auto) Baso % (Auto) Neut # (Auto) Lymph # (Auto) Bledsoe # (Auto) Eos # (Auto) Baso # (Auto) PT INR APTT Sodium Potassium Chloride Carbon Dioxide Anion Gap BUN Creatinine Est GFR ( Amer) Est GFR (Non-Af Amer) POC Glucose (mg/dL) 130 H Random Glucose Calcium Total Bilirubin AST ALT Alkaline Phosphatase Total Protein Albumin Globulin Albumin/Globulin Ratio Assessment & Plan (1) Abdominal pain Status: Acute (2) Alcoholic cirrhosis of liver with ascites Status: Acute (3) Anemia Status: Acute (4) ESRD (end stage renal disease) on dialysis Assessment and Plan: Patient with end stage renal disease admitted was volume overloaded massive ascites and leg edema basically anasarca. Patient completed hemodialysis last night I scheduled him for extra hemodialysis today and his regular dialysis tomorrow. Patient also need paracentesis as well Patient has history of liver cirrhosis and the need paracentesis. Diabetes mellitus , as per primary team Continue phosphorus binders To check PTH for secondary hyperparathyroidism Anemia continue EPO Status: Acute
[2017-07-27] MEDS ORDERED: Dextrose 50% SYRINGE Inj (50 ml) IV ONE (13:57)
[2017-07-27 15:12] LABS: CK-MB 9.52 ng/mL (0.0-3.38); TROPONIN I 0.042 ng/mL (0.00-0.120)
[2017-07-27] MEDS: Insulin Detemir 100 units/ml Vial (Levemir) SC SCH (21:56)
--- NOTE | 2017-07-27 22:57 | CP.PCM.PN ---
Subjective - Date & Time of Evaluation Date of Evaluation: 07/27/17 Time of Evaluation: 19:40 - Subjective Subjective: Pt seen & evaluated at bedside, pt is having 2 episode of vomiting is nauseous, not responding to zofran Objective - Vital Signs/Intake and Output Vital Signs (last 24 hours): Temp Pulse Resp BP Pulse Ox 99.4 F 66 18 166/93 H 94 L 07/27/17 19:00 07/27/17 19:00 07/27/17 19:00 07/27/17 19:00 07/27/17 19:00 Intake and Output: 07/27/17 07/28/17 18:59 06:59 Intake Total 240 Output Total 50 Balance 190 - Medications Medications: Current Medications Clonidine HCl (Catapres) 0.3 mg PO TID [facility] Heparin Sodium (Porcine) (Heparin) 5,000 units SC Q8 [facility] Last Admin: 07/27/17 21:27 Dose: Not Given Insulin Aspart (Novolog) 3 unit SC TID [facility] Last Admin: 07/27/17 18:47 Dose: Not Given Insulin Detemir (Levemir) 12 unit SC HS [facility] Last Admin: 07/27/17 21:56 Dose: Not Given Insulin Human Regular (Novolin R) 0 unit SC ACHS [facility] PRN Reason: Protocol Last Admin: 07/27/17 21:43 Dose: Not Given Lactulose (Enulose) 20 gm PO HS [facility] Last Admin: 07/27/17 21:28 Dose: Not Given Losartan Potassium (Cozaar) 100 mg PO DAILY [facility] Ondansetron HCl (Zofran Inj) 4 mg IVP Q6 PRN PRN Reason: Nausea/Vomiting Last Admin: 07/27/17 21:43 Dose: 4 mg - Labs Labs: 07/26/17 14:06 07/26/17 14:06 PT 13.0 SECONDS (9.7-12.2) H 07/26/17 14:06 INR 1.2 07/26/17 14:06 APTT 28 SECONDS (21-34) 07/26/17 14:06 - Constitutional Appears: Other (mild distress) - Respiratory Exam Respiratory Exam: Clear to Ausculation Bilateral, NORMAL BREATHING PATTERN - Cardiovascular Exam Cardiovascular Exam: REGULAR RHYTHM, +S1, +S2. absent: Murmur - GI/Abdominal Exam GI & Abdominal Exam: Distended, Normal Bowel Sounds - Rectal Exam Rectal Exam: Deferred Assessment and Plan (1) Abdominal discomfort Status: Acute (2) Alcoholic cirrhosis of liver with ascites Status: Acute (3) Anemia Status: Acute (4) CHF (congestive heart failure) Status: Acute (5) CKD (chronic kidney disease) Status: Acute (6) Diabetes mellitus Status: Acute (7) Vomiting Assessment & Plan: rule out portal gastropathy could be reflus/pancreatitis/ gastritis Status: Acute
[2017-07-28 00:27] LABS: AMYLASE 74 U/L (30-110); LIPASE 38 U/L (23-300)
[2017-07-28 07:01] LABS: HEMOGLOBIN 9.4 g/dL (12.0-18.0); MEAN CELL VOLUME 81.1 fL (80.0-94.0); MEAN CORPUSCULAR HEMOGLOBIN 26.5 pg (27.0-31.0); MEAN CORPUSCULAR HGB CONC 32.7 g/dL (33.0-37.0); MEAN PLATELET VOLUME 8.6 fL (7.2-11.7); RBC 3.54 Mil/uL (4.40-5.90); RED CELL DISTRIBUTION WIDTH 17.7 % (11.5-14.5); WHITE BLOOD COUNT 6.1 K/uL (4.8-10.8)
[2017-07-28 07:04] LABS: CALCIUM 7.1 mg/dl (8.6-10.4)
[2017-07-28] MEDS: (Novolin R) Insulin Human Regular 100 units/ml vial SC SCH ×4 (07:57→22:07)
[2017-07-28] MEDS: (Novolog) Insulin Aspart, Recombinant 100 u/ml 10 ml vial SC SCH ×3 (09:44→18:17)
[2017-07-28] MEDS: Belladonna-Phenobarbital PO SCH ×4 (10:17→19:34)
[2017-07-28] MEDS ORDERED: metroNIDAZOLE IV 500 mg/100 ml 500 MG/100 ML BAG IVPB SCH (10:30)
--- NOTE | 2017-07-28 14:15 | PN ---
DATE: LOCATION: [facility], bed A. SUBJECTIVE: This is a 47-year-old male, seen and examined for GI consultation initially on 07/27/2017, reexamined again today with a complaint of severe abdominal pain due to his ascites with recurrent nausea and dyspepsia. The entire chart is reviewed including, but not limited to the most recent lab and radiology study results, current and the previous medication list, current and the previous medical events. The patient is still complaining of abdominal distention, but no actual chest pain or palpitation. No chills or fever, but mild shortness of breath. Case discussed at length with the staff on the floor and today's lab results show normal white blood cells, hemoglobin of 9.4, hematocrit 28.7, with CO2 content of 32 indicative of respiratory alkalosis, BUN 32, creatinine 6.6, compatible with the patient's long history of chronic renal failure, on hemodialysis. His blood glucose level 128 and the calcium of 7.1. His magnesium level is , they were reported to be normal. PHYSICAL EXAMINATION GENERAL: A 47-year-old male, awake, alert, and oriented. VITAL SIGNS: Afebrile with pulse of 84, respiratory rate 20 to 22 with blood pressure of . HEENT: Showed mildly pale dry oral mucoid membrane. Nonicteric sclerae. LUNGS: Few scattered crepitation. Decreased air entry at bases. HEART: Positive S1 and S2. ABDOMEN: With increased abdominal pain. Large amount of ascites with generalized weakness. No mass or organomegaly. No rebound tenderness or guarding. EXTREMITIES: With mild edematous changes. No clubbing or cyanosis. NEUROLOGIC: No reported neurological deficits, sensory or motor. IMPRESSION: 1. Liver cirrhosis with evidence of portal hypertension and ascites. 2. To rule out spontaneous bacterial peritonitis. 3. End-stage renal disease, on hemodialysis. 4. Known history of chronic obstructive pulmonary disease, hypertension, congestive heart failure with hyperlipidemia as well as peripheral edema syndrome. SUGGESTIONS: 1. Continue current management. 2. Start low-dose Flagyl 500 daily, p.o. 3. IR staff for emergency. CAT scan-guided abdominal paracentesis. 4. Further recommendation to follow. Geno Shen MD cc: [facility] # [id number]
[2017-07-28] MEDS: metroNIDAZOLE IV 500 mg/100 ml 500 MG/100 ML BAG IVPB SCH (14:55)
--- NOTE | 2017-07-28 15:18 | CARD ---
APPROVED REPORT EKG Measurement Heart [id number] <Conclusion> Normal sinus rhythm Normal ECG
--- NOTE | 2017-07-28 16:36 | CP.PCM.PN ---
Subjective - Date & Time of Evaluation Date of Evaluation: 07/28/17 Time of Evaluation: 12:00 - Subjective Subjective: RENAL FOLLOW UP S: seen on dialysis vss 2+ edema imp: esrd /hypertensive kidney disease/ anemia of renal plan: seen on hd uf goal is 3-4 kg as tolerated consider paracentesis Objective - Vital Signs/Intake and Output Vital Signs (last 24 hours): Temp Pulse Resp BP Pulse Ox 98.2 F 77 16 179/99 H 99 07/28/17 10:30 07/28/17 13:30 07/28/17 13:30 07/28/17 14:45 07/28/17 13:30 Intake and Output: 07/28/17 07/28/17 06:59 18:59 Intake Total 360 Balance 360 - Medications Medications: Current Medications Belladonna/Phenobarbital () 1 tab PO TID [facility] Last Admin: 07/28/17 14:55 Dose: 1 tab Clonidine HCl (Catapres) 0.3 mg PO TID [facility] Last Admin: 07/28/17 14:55 Dose: 0.3 mg Heparin Sodium (Porcine) (Heparin) 5,000 units SC Q8 [facility] Last Admin: 07/28/17 15:40 Dose: Not Given Metronidazole (Flagyl) 500 mg in 100 mls @ 100 mls/hr IVPB Q24H [facility] Last Admin: 07/28/17 14:55 Dose: 100 mls/hr Insulin Aspart (Novolog) 3 unit SC TID [facility] Last Admin: 07/27/17 18:47 Dose: Not Given Insulin Detemir (Levemir) 12 unit SC HS [facility] Last Admin: 07/27/17 21:56 Dose: Not Given Insulin Human Regular (Novolin R) 0 unit SC ACHS [facility] PRN Reason: Protocol Last Admin: 07/28/17 12:23 Dose: Not Given Lactulose (Enulose) 20 gm PO HS [facility] Last Admin: 07/27/17 21:28 Dose: Not Given Losartan Potassium (Cozaar) 100 mg PO DAILY [facility] Last Admin: 07/28/17 10:17 Dose: Not Given Ondansetron HCl (Zofran Inj) 4 mg IVP Q6 PRN PRN Reason: Nausea/Vomiting Last Admin: 07/27/17 21:43 Dose: 4 mg - Labs Labs: 07/28/17 06:37 07/28/17 06:37 PT 13.0 SECONDS (9.7-12.2) H 07/26/17 14:06 INR 1.2 07/26/17 14:06 APTT 28 SECONDS (21-34) 07/26/17 14:06
[2017-07-28] MEDS: Sevelamer Carb 2.4 gm/Packet PO SCH ×2 (18:29→18:30)
--- NOTE | 2017-07-28 19:02 | CP.PCM.PN ---
Objective - Vital Signs/Intake and Output Vital Signs (last 24 hours): Temp Pulse Resp BP Pulse Ox 98.2 F 77 16 179/99 H 99 07/28/17 10:30 07/28/17 13:30 07/28/17 13:30 07/28/17 14:45 07/28/17 13:30 Intake and Output: 07/28/1718 18:59 06:59 Intake Total 360 Balance 360 - Medications Medications: Current Medications Belladonna/Phenobarbital () 1 tab PO TID [facility] Last Admin: 07/28/17 14:55 Dose: 1 tab Clonidine HCl (Catapres) 0.3 mg PO TID [facility] Last Admin: 07/28/17 14:55 Dose: 0.3 mg Heparin Sodium (Porcine) (Heparin) 5,000 units SC Q8 [facility] Last Admin: 07/28/17 15:40 Dose: Not Given Metronidazole (Flagyl) 500 mg in 100 mls @ 100 mls/hr IVPB Q24H [facility] Last Admin: 07/28/17 14:55 Dose: 100 mls/hr Insulin Aspart (Novolog) 3 unit SC TID [facility] Last Admin: 07/28/17 18:17 Dose: Not Given Insulin Detemir (Levemir) 12 unit SC HS [facility] Last Admin: 07/27/17 21:56 Dose: Not Given Insulin Human Regular (Novolin R) 0 unit SC ACHS [facility] PRN Reason: Protocol Last Admin: 07/28/17 18:16 Dose: Not Given Lactulose (Enulose) 20 gm PO HS [facility] Last Admin: 07/27/17 21:28 Dose: Not Given Losartan Potassium (Cozaar) 100 mg PO DAILY [facility] Last Admin: 07/28/17 10:17 Dose: Not Given Ondansetron HCl (Zofran Inj) 4 mg IVP Q6 PRN PRN Reason: Nausea/Vomiting Last Admin: 07/27/17 21:43 Dose: 4 mg Sevelamer Carbonate (Renvela) 2.4 gm PO TIDCC [facility] Last Admin: 07/28/17 18:30 Dose: Not Given - Labs Labs: 07/28/17 06:37 07/28/17 06:37 PT 13.0 SECONDS (9.7-12.2) H 07/26/17 14:06 INR 1.2 07/26/17 14:06 APTT 28 SECONDS (21-34) 07/26/17 14:06 Assessment and Plan (1) Abdominal discomfort Status: Acute (2) Alcoholic cirrhosis of liver with ascites Status: Acute (3) Anemia Status: Acute (4) CHF (congestive heart failure) Status: Acute (5) CKD (chronic kidney disease) Status: Acute (6) Diabetes mellitus Status: Acute (7) Vomiting Status: Acute
[2017-07-28] MEDS: Insulin Detemir 100 units/ml Vial (Levemir) SC SCH (22:07)
[2017-07-29] MEDS: (Novolin R) Insulin Human Regular 100 units/ml vial SC SCH ×4 (07:24→22:22)
[2017-07-29] MEDS: (Novolog) Insulin Aspart, Recombinant 100 u/ml 10 ml vial SC SCH ×3 (09:43→18:00)
[2017-07-29] MEDS: Belladonna-Phenobarbital PO SCH ×3 (09:43→19:15)
[2017-07-29] MEDS: Sevelamer Carb 2.4 gm/Packet PO SCH ×2 (10:12→12:13)
--- NOTE | 2017-07-29 10:12 | CP.PCM.PN ---
Subjective - Date & Time of Evaluation Date of Evaluation: 07/29/17 Time of Evaluation: 10:12 - Subjective Subjective: RENAL FOLLOWUP Seen and examined, still w/ abdominal pain vs as below gen: nad sclera anicteric op clear neck supple cv +s1+s2 lungs ct abd distended ext 1+ edema neuro: a+ox3 psych: nml affect skin no rash imp: esrd /hypertensive kidney disease/ anemia of renal disease/ hyperphosphatemia/ascites plan: next hd tentatively sunday bp slowly improving ? paracentesis tomorrow will switch binder to phoslo as pt does not like the ca acetate epo w/ hd Objective - Vital Signs/Intake and Output Vital Signs (last 24 hours): Temp Pulse Resp BP Pulse Ox 98.6 F 77 20 144/79 93 L 07/29/17 04:55 07/28/17 23:05 07/28/17 23:05 07/28/17 23:05 07/28/17 23:05 - Medications Medications: Current Medications Belladonna/Phenobarbital () 1 tab PO TID [facility] Last Admin: 07/29/17 09:43 Dose: 1 tab Clonidine HCl (Catapres) 0.3 mg PO TID [facility] Last Admin: 07/29/17 09:43 Dose: 0.3 mg Heparin Sodium (Porcine) (Heparin) 5,000 units SC Q8 [facility] Last Admin: 07/29/17 05:25 Dose: 5,000 units Metronidazole (Flagyl) 500 mg in 100 mls @ 100 mls/hr IVPB Q24H [facility] Last Admin: 07/28/17 14:55 Dose: 100 mls/hr Insulin Aspart (Novolog) 3 unit SC TID [facility] Last Admin: 07/29/17 09:43 Dose: Not Given Insulin Detemir (Levemir) 12 unit SC HS [facility] Last Admin: 07/28/17 22:07 Dose: 12 unit Insulin Human Regular (Novolin R) 0 unit SC ACHS [facility] PRN Reason: Protocol Last Admin: 07/29/17 07:24 Dose: Not Given Lactulose (Enulose) 20 gm PO HS [facility] Last Admin: 07/28/17 22:05 Dose: Not Given Losartan Potassium (Cozaar) 100 mg PO DAILY [facility] Last Admin: 07/29/17 09:43 Dose: 100 mg Ondansetron HCl (Zofran Inj) 4 mg IVP Q6 PRN PRN Reason: Nausea/Vomiting Last Admin: 07/27/17 21:43 Dose: 4 mg Sevelamer Carbonate (Renvela) 2.4 gm PO TIDCC [facility] Last Admin: 07/28/17 18:30 Dose: Not Given - Labs Labs: 07/28/17 06:37 07/28/17 06:37 PT 13.0 SECONDS (9.7-12.2) H 07/26/17 14:06 INR 1.2 07/26/17 14:06 APTT 28 SECONDS (21-34) 07/26/17 14:06
--- NOTE | 2017-07-29 10:13 | CON ---
DATE: 07/27/[address] Shen to Dr. Rosa Isela Paniagua. I was called up for GI consultation by primary MD. The patient was seen fully examined on 07/27/2017 as requested by the admitting MD for GI consultation. The entire chart is reviewed including, but not limited to the most recent lab and radiology study results, current and the previous medication list, current and previous medical events, allergies to medication list, as well as all the available current and the previous medical records. Case discussed with the staff at length. This is a 47 years old male, known case for me from previous admission with multiple past medical history including, but not limited to refractory arthritis. The patient had been complaining of severe abdominal pain, postprandial abdominal distention, increased abdominal girth includes abdominal gap with shortness of breath, despite having abdominal paracentesis few weeks ago. No reported history of pain and palpitation. He has no fever. No headache, but nausea was mild, dyspepsia on and off. No reported vomiting. After being admitted to the hospital, the patient was found to have low hemoglobin of 9.2, hematocrit low at 28.5 with increased BUN of 65, creatinine 10.9, and blood glucose was later reported to be 148. PAST MEDICAL HISTORY: Including mainly, but not limited to: 1. Hypertension with hyperlipidemia. 2. Peripheral edema syndrome. 3. Chronic obstructive pulmonary disease. 4. Known history of depression. 5. End-stage renal disease, on hemodialysis. 6. Family history, unknown. SOCIAL HISTORY: Former alcohol intake with probable underlined alcohol induced liver cirrhosis with portal hypertension. CURRENT MEDICATIONS: Medication list was reviewed. ALLERGIES TO MEDICATION: Unclear. PHYSICAL EXAMINATION: GENERAL: A 47 years old male complaining of severe abdominal pain due to the abdominal distention. VITAL SIGNS: Afebrile with pule of 90, respiratory 20-22, blood pressure 162/86. HEENT: Showed pale dry oral mucoid membrane. Nonicteric sclerae. LUNGS: A few scattered crepitation with decreased air entry at bases bilaterally. HEART: Positive S1 and S2. ABDOMEN: Massive ascites and generalized tenderness. Bowel sounds are hypoactive. Unable to palpate any mass or organomegaly. RECTAL: The patient refused. EXTREMITIES: With lower extremities edematous changes. No clubbing or cyanosis. NEUROLOGIC: No new reported neurological deficits, sensory or motor. VASCULAR: Peripheral pulses are present bilaterally. IMPRESSION: 1. Liver cirrhosis, most likely alcohol induced and/or secondary to possible right-sided heart failure with reported hypertension and refractory ascites, massive. 2. End-stage renal disease, on hemodialysis. 3. Poorly controlled hypertension. 4. Known history, but not limited to hyperlipidemia, chronic obstructive pulmonary disease, depression with history of congestive heart failure. SUGGESTIONS: 1. Agree with your plan. 2. The patient will need immediate, again, abdominal paracentesis by IR staff, , CAT scan abdominal paracentesis to avoid any potential higher risk of bowel preservation if done without radiology study, ultrasound or CAT scan. 3. Cancer markers including alpha-fetoprotein, CEA, and CA 19-9. 4. Flagyl 500 mg IV once daily. 5. Ascetic flow to be sent for complete analysis to rule out possible spontaneous bacterial peritonitis. 6. Further recommendation to follow. Case to be discussed with the admitting MD. Thank you for letting me participate in your patient's case management. Geno Shen MD cc:
[2017-07-29] MEDS: metroNIDAZOLE IV 500 mg/100 ml 500 MG/100 ML BAG IVPB SCH (11:40)
--- NOTE | 2017-07-29 13:27 | PN ---
LOCATION: 656, bed A. SUBJECTIVE: This is a 47-year-old male, seen early in rounds today, appeared to be awake, alert, oriented with reported period of hypoglycemia with elevated blood pressure, received antibiotics. The entire chart is reviewed including but not limited to the most recent lab and radiology study results, current and the previous medication list, current and the previous medical events as well as discussion yesterday and even today regarding the availability of the invasive radiologist to perform CAT scan guided or ultrasound guided abdominal paracentesis to avoid any potential perforation by performing blind abdominal paracentesis as the patient might have an ileus. The patient still has abdominal pain with intermittent period of shortness of breath. Today's labs showed blood glucose level the latest to be 69 for which the patient was given oral juice. His lipase/amylase level was reported to be normal. PHYSICAL EXAMINATION: GENERAL: A 47-year-old male. VITAL SIGNS: Afebrile with blood pressure 140/72, respiratory rate 20 to 22, pulse of 70. HEENT: Showed pale and dry oral mucous membrane. Nonicteric sclerae. LUNGS: A few scattered crepitation. Decreased air entry at bases. HEART: Positive S1 and S2. ABDOMEN: Soft with mild generalized tenderness and distention. No mass or organomegaly. No rebound tenderness or guarding. Large amount of ascites noticed. EXTREMITIES: Lower extremity edematous changes. No clubbing or cyanosis. NEUROLOGIC: No reported new neurological deficits, sensory or motor. IMPRESSION: 1. Liver cirrhosis with evidence of portal hypertension and large refractory ascites. 2. Rule out spontaneous bacterial peritonitis. 3. End-stage renal disease, on hemodialysis. 4. Known history of hypertension, poorly controlled, congestive heart failure, hyperlipidemia. 5. Known history of chronic obstructive pulmonary disease. 6. Known history of peripheral edema syndrome. SUGGESTIONS: 1. Continue current management. 2. The patient will need an ultrasound or CAT scan guided abdominal paracentesis as soon by the IR staff. The order was placed yesterday and discussed with the nursing platform material handling supervisor as well as refinery technician. 3. Further evaluation to follow. Geno Shen MD
--- NOTE | 2017-07-29 21:09 | CP.PCM.PN ---
Subjective - Date & Time of Evaluation Date of Evaluation: 07/29/17 Time of Evaluation: 10:00 - Subjective Subjective: Pt is Seen and examined, still w/ abdominal pain, B.P is elevated, Pt is for IR guided paracentesisi tommorow Objective - Vital Signs/Intake and Output Vital Signs (last 24 hours): Temp Pulse Resp BP Pulse Ox 99 F 78 18 183/104 H 93 L 07/29/17 08:00 07/29/17 08:00 07/29/17 08:00 07/29/17 12:24 07/28/17 23:05 Intake and Output: 07/29/17 07/30/17 18:59 06:59 Intake Total 580 Balance 580 - Medications Medications: Current Medications Belladonna/Phenobarbital () 1 tab PO TID [facility] Last Admin: 07/29/17 19:15 Dose: 1 tab Calcium Acetate (Phoslo) 2,001 mg PO BIDCC [facility] Last Admin: 07/29/17 19:18 Dose: Not Given Clonidine HCl (Catapres) 0.3 mg PO TID [facility] Last Admin: 07/29/17 19:14 Dose: 0.3 mg Heparin Sodium (Porcine) (Heparin) 5,000 units SC Q8 [facility] Last Admin: 07/29/17 13:14 Dose: Not Given Metronidazole (Flagyl) 500 mg in 100 mls @ 100 mls/hr IVPB Q24H [facility] Last Admin: 07/29/17 11:40 Dose: 100 mls/hr Insulin Aspart (Novolog) 3 unit SC TID [facility] Last Admin: 07/29/17 18:00 Dose: Not Given Insulin Detemir (Levemir) 8 unit SC HS [facility] Insulin Human Regular (Novolin R) 0 unit SC ACHS [facility] PRN Reason: Protocol Last Admin: 07/29/17 18:00 Dose: Not Given Lactulose (Enulose) 20 gm PO HS [facility] Last Admin: 07/28/17 22:05 Dose: Not Given Losartan Potassium (Cozaar) 100 mg PO DAILY [facility] Last Admin: 07/29/17 09:43 Dose: 100 mg Ondansetron HCl (Zofran Inj) 4 mg IVP Q6 PRN PRN Reason: Nausea/Vomiting Last Admin: 07/29/17 19:21 Dose: 4 mg - Labs Labs: 07/28/17 06:37 02/10/18 06:37 PT 13.0 SECONDS (9.7-12.2) H 07/26/17 14:06 INR 1.2 07/26/17 14:06 APTT 28 SECONDS (21-34) 07/26/17 14:06 - Constitutional Appears: No Acute Distress - Head Exam Head Exam: ATRAUMATIC, NORMAL INSPECTION, NORMOCEPHALIC - Eye Exam Eye Exam: EOMI, Normal appearance, PERRL Pupil Exam: NORMAL ACCOMODATION, PERRL - Respiratory Exam Respiratory Exam: Clear to Ausculation Bilateral, NORMAL BREATHING PATTERN - Cardiovascular Exam Cardiovascular Exam: REGULAR RHYTHM, +S1, +S2 - GI/Abdominal Exam GI & Abdominal Exam: Distended, Tenderness Assessment and Plan (1) Abdominal discomfort Status: Acute (2) Alcoholic cirrhosis of liver with ascites Status: Acute (3) Anemia Status: Acute (4) CHF (congestive heart failure) Status: Acute (5) CKD (chronic kidney disease) Status: Acute (6) Diabetes mellitus Status: Acute (7) Vomiting Status: Acute
[2017-07-29] MEDS: Insulin Detemir 100 units/ml Vial (Levemir) SC SCH (22:22)
[2017-07-30] MEDS: (Novolin R) Insulin Human Regular 100 units/ml vial SC SCH ×4 (07:51→21:53)
[2017-07-30] MEDS: Belladonna-Phenobarbital PO SCH ×3 (10:00→18:39)
[2017-07-30] MEDS: (Novolog) Insulin Aspart, Recombinant 100 u/ml 10 ml vial SC SCH ×3 (10:12→18:37)
--- NOTE | 2017-07-30 10:54 | PCM.SURG1 ---
Surgeon's Initial Post Op Note - Surgeon's Notes Surgeon: Herman Gordon MD Word Processing Machine Operator: NONE Type of Anesthesia: Local Pre-Operative Diagnosis: Ascites, cirrhosis Operative Findings: US showed a large amount of ascites Post-Operative Diagnosis: Ascites, cirrhosis Operation Performed: US guided paracentesis Specimen/Specimens Removed: 5900 cc of straw colored fluid Estimated Blood Loss: EBL {In ML}: 0 Blood Products Given: N/A Drains Used: No Drains Post-Op Condition: Fair Date of Surgery/Procedure: 07/30/17 Time of Surgery/Procedure: 10:50
[2017-07-30] MEDS ORDERED: Morphine 4 MG/ML VIAL IV PRN (11:08)
[2017-07-30] MEDS ORDERED: Nitroglycerin 2% Ointment Foilpak UD TOP ONE (11:11)
[2017-07-30] MEDS: metroNIDAZOLE IV 500 mg/100 ml 500 MG/100 ML BAG IVPB SCH (11:21)
--- NOTE | 2017-07-30 14:28 | PN ---
DATE: LOCATION: [facility], bed A. SUBJECTIVE: This is a 47-year-old male seen and examined in rounds post abdominal thoracentesis with less abdominal distention, with reported complaint of mild chest pain, but gradually subsiding. The entire chart is reviewed including, but not limited to, the most recent lab and radiology study results, current and the previous medication list, current and the previous medical events. Case was discussed with the staff at length. According to the IR staff, about 5900 mL of ascitic fluid was removed. The most recent lab results show blood glucose level of 131. No reported nausea or vomiting, the patient refused to take Zofran or Reglan, and no reported significant shortness of breath, chills, or fever so far. PHYSICAL EXAMINATION: GENERAL: A 47-year-old male. VITAL SIGNS: Afebrile with pulse of 72, respiratory rate 20 to 22, blood pressure reported to be elevated again to 210/106. HEENT: Showed pale, dry oral mucoid membrane. Nonicteric sclerae. LUNGS: A few scattered crepitation with few rhonchi bilaterally and sight decreased air entry at bases. HEART: Positive S1 and S2 with increased rate. ABDOMEN: Much less distended and less ascites with slight generalized tenderness. No mass or organomegaly. Bowel sounds are present. No rebound tenderness or guarding. EXTREMITIES: Show lower extremity edematous changes. No clubbing or cyanosis. NEUROLOGIC: No reported new neurological deficits, sensory or motor. IMPRESSION: 1. Liver cirrhosis, portal hypertension, refractory ascites. 2. To rule out spontaneous bacterial peritonitis. 3. Known history of end-stage renal disease, on hemodialysis. 4. Known history of poorly controlled hypertension, congestive heart failure, hyperlipidemia. 5. Known history of chronic obstructive pulmonary disease. 6. Known history of peripheral edema syndrome. SUGGESTIONS: 1. Continue current management. 2. Adjust oral intake. 3. Follow up on cancer markers. 4. Further recommendation to follow. Geno Shen MD
--- NOTE | 2017-07-30 16:12 | CP.PCM.PN ---
Subjective - Date & Time of Evaluation Date of Evaluation: 07/30/17 Time of Evaluation: 16:10 - Subjective Subjective: PATIENT SEEN AND EXAMINED TODAY, RESPIRATION EASY AND UNLABORED. NAD Objective - Vital Signs/Intake and Output Vital Signs (last 24 hours): Temp Pulse Resp BP Pulse Ox 98.3 F 76 20 174/93 H 20 L 07/30/17 08:23 07/30/17 11:23 07/30/17 08:23 07/30/17 12:43 07/30/17 08:23 Intake and Output: 07/30/17 07/30/17 06:59 18:59 Intake Total 450 Balance 450 - Medications Medications: Current Medications Amlodipine Besylate (Norvasc) 10 mg PO DAILY [facility] Last Admin: 07/30/17 11:19 Dose: 10 mg Belladonna/Phenobarbital () 1 tab PO TID [facility] Last Admin: 07/30/17 13:35 Dose: 1 tab Calcium Acetate (Phoslo) 2,001 mg PO BIDCC [facility] Last Admin: 07/30/17 08:03 Dose: Not Given Clonidine HCl (Catapres-Tts3 0.3 Mg/24 Hr) 1 patch TD Q7D@1000 [facility] Epoetin Tyree (Procrit) 4,000 unit IV TTS [facility] Hydralazine HCl (Apresoline) 25 mg PO Q4 PRN PRN Reason: Other Last Admin: 07/30/17 11:19 Dose: 25 mg Metronidazole (Flagyl) 500 mg in 100 mls @ 100 mls/hr IVPB Q24H [facility] Last Admin: 07/30/17 11:21 Dose: 100 mls/hr Insulin Aspart (Novolog) 3 unit SC TID [facility] Last Admin: 07/30/17 13:35 Dose: 3 unit Insulin Detemir (Levemir) 8 unit SC HS [facility] Last Admin: 07/29/17 22:22 Dose: Not Given Insulin Human Regular (Novolin R) 0 unit SC ACHS [facility] PRN Reason: Protocol Last Admin: 07/30/17 11:35 Dose: Not Given Lactulose (Enulose) 20 gm PO HS [facility] Last Admin: 07/29/17 22:22 Dose: Not Given Losartan Potassium (Cozaar) 100 mg PO DAILY [facility] Last Admin: 07/30/17 09:15 Dose: 100 mg Morphine Sulfate (Morphine) 2 mg IV Q6H PRN PRN Reason: Pain, moderate (4-7) Last Admin: 07/30/17 11:20 Dose: 2 mg Ondansetron HCl (Zofran Inj) 4 mg IVP Q6 PRN PRN Reason: Nausea/Vomiting Last Admin: 07/30/17 01:16 Dose: 4 mg Vitamin B Complex/Vit C/Folic Acid (Nephro-Juan Manuel) 1 tab PO 0800 [facility] - Labs Labs: 07/28/17 06:37 07/28/17 06:37 PT 13.0 SECONDS (9.7-12.2) H 07/26/17 14:06 INR 1.2 07/26/17 14:06 APTT 28 SECONDS (21-34) 07/26/17 14:06 Assessment and Plan - Assessment and Plan (Free Text) Plan: 47 Y/O MALE WITH PMHX ESRD ADMITTED FOR ABDOMINAL DISTENTION, ALCOHOL CIRRHOSIS US GUIDED PARACENTESIS DONE- REMOVED [address] MOONEY PT WILL BE MONITOR OVERNIGHT, CAN BE DISCHARGE TOMORROW MORNING 07/31
--- NOTE | 2017-07-30 19:31 | CP.PCM.PN ---
Subjective - Date & Time of Evaluation Date of Evaluation: 07/30/17 Time of Evaluation: 15:00 - Subjective Subjective: Follow up Nephrology Consultation Note Assessment: Stable ascites with cirrhosis Diabetic chronic Kidney Disease (E11.22) Hypertensive Chronic Kidney Disease (I12.0) End stage renal disease (N18.6) dependence on hemodialysis (Z99.2) (TTS) via AVF Anemia (D64.9), Hyperphosphatemia (E83.39), Secondary Hyperparathyroidism (E21.1 ), HTN (I12.0) Plan: No acute need for dialysis today. Will plan for dialysis tomorrow. Continue with Nephrovite 1 tab/day. PRBC as needed for anemia. On MARIANNE as epogen with HD, last Hb 9.4 Continue with phos binders, last phos level 4.1 BP control with meds as ordered. Patient on RAAS kylie as losartan. will add norvasc and also aldactone (to help with ascites) Glycemic control, Dialysis consistent diet Further work up/management as per primary team Dose meds/antibiotics (if needed) for ESRD status. Avoid fleets enema/magnesium based laxatives. Thanks for allowing me to participate in care of your patient. Will follow patient with you. Please call if any Qs Dr Alok Gamez Office: [phone] Subjective: Noted events overnight. Patients feels okay. Denies chest pain, palpitation, shortness of breath, improved leg swelling. abdomen distension better s/p ~6 L fluid paracentesis 07/30/17 All other negative Physical Examination: General Appearance: Comfortable, in no acute respiratory distress, co-operative . Vitals reviewed and noted as below Head; Atraumatic, normocephalic ENT: no ulcers no thrush. Tongue is midline. Oropharynx: no rash or ulcers. EYES: Pupils are equal, round and reactive to light accommodation. Eye muscles and extraocular movement intact. Sclera is anicteric. Neck; supple no lymphadenopathy, no thyromegaly or bruit Lungs: Normal respiratory rate/effort. Breath sounds bilateral equal and clear Heart: Normal rate. s1s2 normal. No rub or gallop. Extremities: 1+ edema. No varicose veins Neurological: Patient is alert, awake and oriented to person, place and time. No focal deficit. Strength bilateral appropriate and equal Skin: Warm and dry. Normal turgor. No rash. Palpitation: Normal elasticity for age Abdomen: Abdomen is soft. Bowel sounds +. There is no abdominal tenderness, no guarding/rigidity or organomegaly Psych: normal insight and normal affect/mood MSK: no joint tenderness or swelling. Digits and nails normal, no deformity : kidney or bladder not palpable Access: AVF Labs/imaging reviewed. Past medical history, past surgical history, family history, social history, allergy reviewed and noted as below Family Hx: no hx of CKD. Non contributory Objective - Vital Signs/Intake and Output Vital Signs (last 24 hours): Temp Pulse Resp BP Pulse Ox 97.4 F L 70 20 150/72 98 07/30/17 16:00 07/30/17 16:00 07/30/17 16:00 07/30/17 16:00 07/30/17 16:00 Intake and Output: 07/30/17 07/31/17 18:59 06:59 Intake Total 450 Balance 450 - Medications Medications: Current Medications Amlodipine Besylate (Norvasc) 10 mg PO DAILY [facility] Last Admin: 07/30/17 11:19 Dose: 10 mg Belladonna/Phenobarbital () 1 tab PO TID [facility] Last Admin: 07/30/17 18:39 Dose: 1 tab Calcium Acetate (Phoslo) 2,001 mg PO BIDCC [facility] Last Admin: 07/30/17 17:45 Dose: 2,001 mg Clonidine HCl (Catapres-Tts3 0.3 Mg/24 Hr) 1 patch TD Q7D@1000 [facility] Epoetin Tyree (Procrit) 4,000 unit IV TTS [facility] Hydralazine HCl (Apresoline) 25 mg PO Q4 PRN PRN Reason: Other Last Admin: 07/30/17 11:19 Dose: 25 mg Metronidazole (Flagyl) 500 mg in 100 mls @ 100 mls/hr IVPB Q24H [facility] Last Admin: 07/30/17 11:21 Dose: 100 mls/hr Insulin Aspart (Novolog) 3 unit SC TID [facility] Last Admin: 07/30/17 18:37 Dose: Not Given Insulin Detemir (Levemir) 8 unit SC HS [facility] Last Admin: 07/29/17 22:22 Dose: Not Given Insulin Human Regular (Novolin R) 0 unit SC ACHS [facility] PRN Reason: Protocol Last Admin: 07/30/17 17:07 Dose: Not Given Lactulose (Enulose) 20 gm PO HS [facility] Last Admin: 07/29/17 22:22 Dose: Not Given Losartan Potassium (Cozaar) 100 mg PO DAILY [facility] Last Admin: 07/30/17 09:15 Dose: 100 mg Morphine Sulfate (Morphine) 2 mg IV Q6H PRN PRN Reason: Pain, moderate (4-7) Last Admin: 07/30/17 11:20 Dose: 2 mg Ondansetron HCl (Zofran Inj) 4 mg IVP Q6 PRN PRN Reason: Nausea/Vomiting Last Admin: 07/30/17 01:16 Dose: 4 mg Spironolactone (Aldactone) 50 mg PO QPM [facility] Vitamin B Complex/Vit C/Folic Acid (Nephro-Juan Manuel) 1 tab PO 0800 [facility] - Labs Labs: 07/28/17 06:37 07/28/17 06:37 PT 13.0 SECONDS (9.7-12.2) H 07/26/17 14:06 INR 1.2 07/26/17 14:06 APTT 28 SECONDS (21-34) 07/26/17 14:06
[2017-07-30] MEDS: Insulin Detemir 100 units/ml Vial (Levemir) SC SCH (21:41)
--- NOTE | 2017-07-30 22:57 | CP.PCM.PN ---
Subjective - Date & Time of Evaluation Date of Evaluation: 07/30/17 Time of Evaluation: 19:00 - Subjective Subjective: PT UNDERWENT IR GUIDED PARACENTESIS, PT IS FELLING BETTER Objective - Vital Signs/Intake and Output Vital Signs (last 24 hours): Temp Pulse Resp BP Pulse Ox 97.4 F L 70 20 150/72 98 07/30/17 16:00 07/30/17 16:00 07/30/17 16:00 07/30/17 16:00 07/30/17 16:00 Intake and Output: 07/30/17 07/31/17 18:59 06:59 Intake Total 450 Balance 450 - Medications Medications: Current Medications Amlodipine Besylate (Norvasc) 10 mg PO DAILY [facility] Last Admin: 07/30/17 11:19 Dose: 10 mg Belladonna/Phenobarbital () 1 tab PO TID [facility] Last Admin: 07/30/17 18:39 Dose: 1 tab Calcium Acetate (Phoslo) 2,001 mg PO BIDCC [facility] Last Admin: 07/30/17 17:45 Dose: 2,001 mg Clonidine HCl (Catapres-Tts3 0.3 Mg/24 Hr) 1 patch TD Q7D@1000 [facility] Epoetin Tyree (Procrit) 4,000 unit IV TTS [facility] Hydralazine HCl (Apresoline) 25 mg PO Q4 PRN PRN Reason: Other Last Admin: 07/30/17 11:19 Dose: 25 mg Metronidazole (Flagyl) 500 mg in 100 mls @ 100 mls/hr IVPB Q24H [facility] Last Admin: 07/30/17 11:21 Dose: 100 mls/hr Insulin Aspart (Novolog) 3 unit SC TID [facility] Last Admin: 07/30/17 18:37 Dose: Not Given Insulin Detemir (Levemir) 8 unit SC HS [facility] Last Admin: 07/30/17 21:41 Dose: 8 unit Insulin Human Regular (Novolin R) 0 unit SC ACHS [facility] PRN Reason: Protocol Last Admin: 07/30/17 21:53 Dose: Not Given Lactulose (Enulose) 20 gm PO HS [facility] Last Admin: 07/30/17 21:54 Dose: Not Given Losartan Potassium (Cozaar) 100 mg PO DAILY [facility] Last Admin: 07/30/17 09:15 Dose: 100 mg Morphine Sulfate (Morphine) 2 mg IV Q6H PRN PRN Reason: Pain, moderate (4-7) Last Admin: 07/30/17 11:20 Dose: 2 mg Ondansetron HCl (Zofran Inj) 4 mg IVP Q6 PRN PRN Reason: Nausea/Vomiting Last Admin: 07/30/17 01:16 Dose: 4 mg Spironolactone (Aldactone) 50 mg PO QPM [facility] Last Admin: 07/30/17 20:56 Dose: 50 mg Vitamin B Complex/Vit C/Folic Acid (Nephro-Juan Manuel) 1 tab PO 0800 [facility] - Labs Labs: 07/28/17 06:37 07/28/17 06:37 PT 13.0 SECONDS (9.7-12.2) H 07/26/17 14:06 INR 1.2 07/26/17 14:06 APTT 28 SECONDS (21-34) 07/26/17 14:06 - Constitutional Appears: No Acute Distress - Head Exam Head Exam: ATRAUMATIC, NORMAL INSPECTION, NORMOCEPHALIC - Eye Exam Eye Exam: EOMI, Normal appearance, PERRL Pupil Exam: NORMAL ACCOMODATION, PERRL - Respiratory Exam Respiratory Exam: Clear to Ausculation Bilateral, NORMAL BREATHING PATTERN - Cardiovascular Exam Cardiovascular Exam: REGULAR RHYTHM, +S1, +S2. absent: Murmur - GI/Abdominal Exam GI & Abdominal Exam: Distended Assessment and Plan (1) Abdominal discomfort Status: Acute (2) Alcoholic cirrhosis of liver with ascites Status: Acute (3) Anemia Status: Acute (4) CHF (congestive heart failure) Status: Acute (5) CKD (chronic kidney disease) Status: Acute (6) Diabetes mellitus Status: Acute (7) Vomiting Status: Acute
[2017-07-31] MEDS: (Novolin R) Insulin Human Regular 100 units/ml vial SC SCH ×3 (07:35→17:16)
[2017-07-31] MEDS ORDERED: Multivitamin Vitamin B Complex (Nephro-Vite) Tab PO SCH (08:00)
[2017-07-31] MEDS: Belladonna-Phenobarbital PO SCH ×2 (09:01→14:02)
[2017-07-31] MEDS: (Novolog) Insulin Aspart, Recombinant 100 u/ml 10 ml vial SC SCH ×2 (09:26→14:15)
--- NOTE | 2017-07-31 09:34 | US ---
Date of Procedure: 07/30/2017 PROCEDURE: Ultrasound-guided paracentesis, CPT 18207 Medications: 7 cc 1% Lidocaine HISTORY: Ascites, abdominal pain, cirrhosis TECHNIQUE: Following informed consent , the patient was placed supine on the stretcher and the site was marked. A limited abdominal ultrasound was performed that showed a large amount of intra-abdominal fluid. Procedural time out was called and the Pt's abdomen was marked and prepped and draped in the usual sterile fashion. Ultrasound-guided large volume paracentesis performed. A total of 5.9 liters of straw colored fluid was removed without complication. Fluid specimen was sent for culture, sensitivity, cytology and chemistries. IMPRESSION: Ultrasound-guided paracentesis with removal of 5.9 liters of fluid.
[2017-07-31] MEDS ORDERED: EPOETIN ALFA 4,000 UNIT/ML ML Dialysis IV SCH (10:00)
--- NOTE | 2017-07-31 12:57 | CP.PCM.PN ---
Subjective - Date & Time of Evaluation Date of Evaluation: 07/31/17 Time of Evaluation: 12:56 - Subjective Subjective: Follow up Nephrology Consultation Note Assessment: Stable ascites with cirrhosis Diabetic chronic Kidney Disease (E11.22) Hypertensive Chronic Kidney Disease (I12.0) End stage renal disease (N18.6) dependence on hemodialysis (Z99.2) (TTS) via AVF Anemia (D64.9), Hyperphosphatemia (E83.39), Secondary Hyperparathyroidism (E21.1 ), HTN (I12.0) Plan: Dialysis today as ordered. Continue with Nephrovite 1 tab/day. PRBC as needed for anemia. On MARIANNE as epogen with HD, last Hb 9.4 Continue with phos binders, last phos level 4.1 BP control with meds as ordered. Patient on RAAS kylie as losartan. will add norvasc and also aldactone (to help with ascites) Glycemic control, Dialysis consistent diet Further work up/management as per primary team Dose meds/antibiotics (if needed) for ESRD status. Avoid fleets enema/magnesium based laxatives. pt stable for d/c from renal perspective Thanks for allowing me to participate in care of your patient. Will follow patient with you. Please call if any Qs. d/w team Dr Alok Gamez Office: [phone] Subjective: Noted events overnight. Patients feels okay. Denies chest pain, palpitation, shortness of breath, improved leg swelling. abdomen distension better s/p ~6 L fluid paracentesis 07/30/17 All other negative Physical Examination: seen on HD General Appearance: Comfortable, in no acute respiratory distress, co-operative . Vitals reviewed and noted as below Head; Atraumatic, normocephalic ENT: no ulcers no thrush. Tongue is midline. Oropharynx: no rash or ulcers. EYES: Pupils are equal, round and reactive to light accommodation. Eye muscles and extraocular movement intact. Sclera is anicteric. Neck; supple no lymphadenopathy, no thyromegaly or bruit Lungs: Normal respiratory rate/effort. Breath sounds bilateral equal and clear Heart: Normal rate. s1s2 normal. No rub or gallop. Extremities: 1+ edema. No varicose veins Neurological: Patient is alert, awake and oriented to person, place and time. No focal deficit. Strength bilateral appropriate and equal Skin: Warm and dry. Normal turgor. No rash. Palpitation: Normal elasticity for age Abdomen: Abdomen is soft. Bowel sounds +. There is no abdominal tenderness, no guarding/rigidity or organomegaly Psych: normal insight and normal affect/mood MSK: no joint tenderness or swelling. Digits and nails normal, no deformity : kidney or bladder not palpable Access: AVF Labs/imaging reviewed. Past medical history, past surgical history, family history, social history, allergy reviewed and noted as below Family Hx: no hx of CKD. Non contributory Objective - Vital Signs/Intake and Output Vital Signs (last 24 hours): Temp Pulse Resp BP Pulse Ox 98.2 F 71 16 167/96 H 96 07/31/17 09:30 07/31/17 09:30 07/31/17 09:30 07/31/17 11:45 07/31/17 09:30 Intake and Output: 07/31/17 07/31/17 06:59 18:59 Intake Total 480 Balance 480 - Medications Medications: Current Medications Amlodipine Besylate (Norvasc) 10 mg PO DAILY [facility] [place] Last Admin: 07/31/17 09:25 Dose: Not Given Belladonna/Phenobarbital () 1 tab PO TID [facility] Last Admin: 07/31/17 09:01 Dose: 1 tab Calcium Acetate (Phoslo) 2,001 mg PO BIDCC [facility] [place] Last Admin: 07/31/17 08:23 Dose: 2,001 mg Clonidine HCl (Catapres-Tts3 0.3 Mg/24 Hr) 1 patch TD Q7D@1000 [facility] [place] Epoetin Tyree (Procrit) 4,000 unit IV TTS [facility] [place] Last Admin: 07/31/17 11:19 Dose: 4,000 unit Hydralazine HCl (Apresoline) 25 mg PO Q4 PRN PRN Reason: Other Last Admin: 07/30/17 11:19 Dose: 25 mg Metronidazole (Flagyl) 500 mg in 100 mls @ 100 mls/hr IVPB Q24H [facility] Last Admin: 07/30/17 11:21 Dose: 100 mls/hr Insulin Aspart (Novolog) 3 unit SC TID [facility] [place] Last Admin: 07/31/17 09:26 Dose: Not Given Insulin Detemir (Levemir) 8 unit SC HS [facility] [place] Last Admin: 07/30/17 21:41 Dose: 8 unit Insulin Human Regular (Novolin R) 0 unit SC ACHS [facility] PRN Reason: Protocol Last Admin: 07/31/17 12:05 Dose: Not Given Lactulose (Enulose) 20 gm PO HS [facility] [place] Last Admin: 07/30/17 21:54 Dose: Not Given Losartan Potassium (Cozaar) 100 mg PO DAILY [facility] [place] Last Admin: 07/31/17 09:25 Dose: Not Given Morphine Sulfate (Morphine) 2 mg IV Q6H PRN PRN Reason: Pain, moderate (4-7) Last Admin: 07/30/17 11:20 Dose: 2 mg Ondansetron HCl (Zofran Inj) 4 mg IVP Q6 PRN PRN Reason: Nausea/Vomiting Last Admin: 07/30/17 01:16 Dose: 4 mg Spironolactone (Aldactone) 50 mg PO QPM [facility] Last Admin: 07/30/17 20:56 Dose: 50 mg Vitamin B Complex/Vit C/Folic Acid (Nephro-Juan Manuel) 1 tab PO 0800 [facility] Last Admin: 07/31/17 08:23 Dose: 1 tab - Labs Labs: 07/28/17 06:37 07/28/17 06:37 PT 13.0 SECONDS (9.7-12.2) H 07/26/17 14:06 INR 1.2 07/26/17 14:06 APTT 28 SECONDS (21-34) 07/26/17 14:06
[2017-07-31 12:58] LABS: BASO % 0.7 % (0.0-2.0); EOS # 0.2 K/uL (0.0-0.7); EOS % 2.7 % (0.0-4.0); HEMOGLOBIN 10.3 g/dL (12.0-18.0); LYMPH # 1.1 K/uL (1.0-4.3); MEAN CELL VOLUME 80.2 fL (80.0-94.0); MEAN CORPUSCULAR HEMOGLOBIN 26.3 pg (27.0-31.0); MEAN CORPUSCULAR HGB CONC 32.8 g/dL (33.0-37.0); MEAN PLATELET VOLUME 8.5 fL (7.2-11.7); MONO # 0.3 K/uL (0.0-0.8); MONO % 5.3 % (0.0-10.0); NEUT # 4.8 K/uL (1.8-7.0); NEUT % 74.3 % (50.0-75.0); NRBC % 0.1 % (0.0-2.0); RBC 3.91 Mil/uL (4.40-5.90); RED CELL DISTRIBUTION WIDTH 18.3 % (11.5-14.5); WHITE BLOOD COUNT 6.4 K/uL (4.8-10.8)
[2017-07-31] MEDS: metroNIDAZOLE IV 500 mg/100 ml 500 MG/100 ML BAG IVPB SCH (14:03)
--- NOTE | 2017-07-31 15:38 | PCM.HF ---
Heart Failure Core Measure - Heart Failure Ejection Fraction: 40 % or Greater REINA Inhibitor Prescribed: No Contraindication/Reason for not providing: ON ARB Beta-Chrystal Prescribed: None Contraindication/Reason for not providing: ASTHMA Angiotensin II Receptor Chrystal Prescribed: Yes AnticoagulationTherapy for Atrial Fibrillation/Atrialflutter: No Contraindication/Reason for not providing: NO HX OF A FIB Aldosterone Antagonist Prescribed: Yes Hydralazine Nitrate Prescribed: No Contraindication/Reason for not providing: ON CALCIUM CHANNEL CHRYSTAL Implantable Cardioverter Defibrillator Therapy: No Contraindication/Reason for not providing: EF>45 Cardiac Resynchronization Therapy Prescribed: No Contraindication/Reason for not providing: EF.45 - Follow up Will be discharged to: Home Follow Up Date (must be within 7 days from discharge): 08/06/17 Follow Up Time: 09:00
--- NOTE | 2017-07-31 15:41 | CP.PCM.PN ---
Subjective - Date & Time of Evaluation Date of Evaluation: 07/31/17 Time of Evaluation: 15:00 - Subjective Subjective: patient seen today after HD , denies any sob, abdominal pain, N/V/, bp - stable Objective - Vital Signs/Intake and Output Vital Signs (last 24 hours): Temp Pulse Resp BP Pulse Ox 97.8 F 72 16 159/97 H 98 07/31/17 13:00 07/31/17 13:00 07/31/17 13:00 07/31/17 13:00 07/31/17 13:00 Intake and Output: 07/31/17 07/31/17 06:59 18:59 Intake Total 480 380 Balance 480 380 - Medications Medications: Current Medications Amlodipine Besylate (Norvasc) 10 mg PO DAILY [facility] Last Admin: 07/31/17 13:43 Dose: 10 mg Belladonna/Phenobarbital () 1 tab PO TID [facility] Last Admin: 07/31/17 14:02 Dose: 1 tab Calcium Acetate (Phoslo) 2,001 mg PO BIDCC [facility] Last Admin: 07/31/17 08:23 Dose: 2,001 mg Clonidine HCl (Catapres-Tts3 0.3 Mg/24 Hr) 1 patch TD Q7D@1000 [facility] Epoetin Tyree (Procrit) 4,000 unit IV TTS [facility] Last Admin: 07/31/17 11:19 Dose: 4,000 unit Hydralazine HCl (Apresoline) 25 mg PO Q4 PRN PRN Reason: Other Last Admin: 07/30/17 11:19 Dose: 25 mg Metronidazole (Flagyl) 500 mg in 100 mls @ 100 mls/hr IVPB Q24H [facility] Last Admin: 07/31/17 14:03 Dose: 100 mls/hr Insulin Aspart (Novolog) 3 unit SC TID [facility] Last Admin: 07/31/17 14:15 Dose: Not Given Insulin Detemir (Levemir) 8 unit SC [facility] Last Admin: 07/30/17 21:41 Dose: 8 unit Insulin Human Regular (Novolin R) 0 unit SC ACHS [facility] PRN Reason: Protocol Last Admin: 07/31/17 12:05 Dose: Not Given Lactulose (Enulose) 20 gm PO [facility] Last Admin: 07/30/17 21:54 Dose: Not Given Losartan Potassium (Cozaar) 100 mg PO DAILY [facility] Last Admin: 07/31/17 13:44 Dose: 100 mg Morphine Sulfate (Morphine) 2 mg IV Q6H PRN PRN Reason: Pain, moderate (4-7) Last Admin: 07/30/17 11:20 Dose: 2 mg Ondansetron HCl (Zofran Inj) 4 mg IVP Q6 PRN PRN Reason: Nausea/Vomiting Last Admin: 07/30/17 01:16 Dose: 4 mg Spironolactone (Aldactone) 50 mg PO QPM [facility] Last Admin: 07/30/17 20:56 Dose: 50 mg Vitamin B Complex/Vit C/Folic Acid (Nephro-Juan Manuel) 1 tab PO 0800 [facility] Last Admin: 07/31/17 08:23 Dose: 1 tab - Labs Labs: 07/31/17 12:53 07/28/17 06:37 PT 13.0 SECONDS (9.7-12.2) H 07/26/17 14:06 INR 1.2 07/26/17 14:06 APTT 28 SECONDS (21-34) 07/26/17 14:06 - Constitutional Appears: No Acute Distress - Respiratory Exam Respiratory Exam: Clear to Ausculation Bilateral, NORMAL BREATHING PATTERN - Cardiovascular Exam Cardiovascular Exam: REGULAR RHYTHM, +S1, +S2 - GI/Abdominal Exam GI & Abdominal Exam: Soft, Tenderness (RLQ, dressing inplace no drainage noted ) - Neurological Exam Neurological Exam: Alert, Awake, Oriented x3 Assessment and Plan - Assessment and Plan (Free Text) Assessment: 47 y/o male with PMHx of liver cirrhosis, DM, HTN, and ESRD on Dialysis, admitted for abdominal pain, distention/ ascitis s/p paracentesis, 5.9 lit removed Pt had HD today bp- stable D/W Dr. Natarajan, stable for discharge home today and f/u with Dr. Natarajan office in 1 week and continue HD as scheduled Discharge plan discussed with patient who understands and agrees with plan Pateint instructed to returns to ED if symptoms returns or any other concerning symptoms
[2017-07-31 15:53] VITALS: BP 160/90; PULSE 81; RESP 20; TEMP 98; O2SAT 94
--- NOTE | 2017-07-31 23:29 | CP.PCM.DIS ---
Provider - Provider Date of Admission: 07/26/17 15:19 Attending physician: Siva Natarajan MD Diagnosis - Discharge Diagnosis (1) Abdominal discomfort Status: Acute (2) Alcoholic cirrhosis of liver with ascites Status: Acute (3) Anemia Status: Acute (4) CHF (congestive heart failure) Status: Acute (5) CKD (chronic kidney disease) Status: Acute (6) Diabetes mellitus Status: Acute (7) Vomiting Status: Acute Hospital Course - Lab Results Lab Results: Most Recent Lab Values WBC 6.4 K/uL (4.8-10.8) 07/31/17 12:53 RBC 3.91 Mil/uL (4.40-5.90) L 07/31/17 12:53 Hgb 10.3 g/dL (12.0-18.0) L 07/31/17 12:53 Hct 31.4 % (35.0-51.0) L 07/31/17 12:53 MCV 80.2 fL (80.0-94.0) 07/31/17 12:53 MCH 26.3 pg (27.0-31.0) L 07/31/17 12:53 MCHC 32.8 g/dL (33.0-37.0) L 07/31/17 12:53 RDW 18.3 % (11.5-14.5) H 07/31/17 12:53 Plt Count 242 K/uL (130-400) 07/31/17 12:53 MPV 8.5 fL (7.2-11.7) 07/31/17 12:53 Neut % (Auto) 74.3 % (50.0-75.0) 07/31/17 12:53 Lymph % (Auto) 17.0 % (20.0-40.0) L 07/31/17 12:53 [place] % (Auto) 5.3 % (0.0-10.0) 07/31/17 12:53 Eos % (Auto) 2.7 % (0.0-4.0) 07/31/17 12:53 Baso % (Auto) 0.7 % (0.0-2.0) 07/31/17 12:53 Neut # (Auto) 4.8 K/uL (1.8-7.0) 07/31/17 12:53 Lymph # (Auto) 1.1 K/uL (1.0-4.3) 07/31/17 12:53 [place] # (Auto) 0.3 K/uL (0.0-0.8) 07/31/17 12:53 Eos # (Auto) 0.2 K/uL (0.0-0.7) 07/31/17 12:53 Baso # (Auto) 0.0 K/uL (0.0-0.2) 07/31/17 12:53 PT 13.0 SECONDS (9.7-12.2) H 07/26/17 14:06 INR 1.2 07/26/17 14:06 APTT 28 SECONDS (21-34) 07/26/17 14:06 Sodium 135 mmol/L (132-148) 07/28/17 06:37 Potassium 4.1 mmol/L (3.6-5.2) 07/28/17 06:37 Chloride 94 mmol/L (98-107) L 07/28/17 06:37 Carbon Dioxide 32 mmol/L (22-30) H 07/28/17 06:37 Anion Gap 14 (10-20) 07/28/17 06:37 BUN 32 mg/dL (9-20) H 07/28/17 06:37 Creatinine 6.6 mg/dL (0.8-1.5) H 07/28/17 06:37 Est GFR ( Amer) 11 07/28/17 06:37 Est GFR (Non-Af Amer) 9 07/28/17 06:37 POC Glucose (mg/dL) 104 mg/dL (65-110) 07/31/17 11:14 Random Glucose 125 mg/dL (75-110) H 07/28/17 06:37 Calcium 7.1 mg/dl (8.6-10.4) L 07/28/17 06:37 Phosphorus 4.1 mg/dL (2.5-4.5) 07/29/17 08:29 Total Bilirubin 0.6 mg/dL (0.2-1.3) 07/26/17 14:06 AST 30 U/L (17-59) 07/26/17 14:06 ALT 28 U/L (21-72) 07/26/17 14:06 Alkaline Phosphatase 114 U/L (38-126) 07/26/17 14:06 Total Creatine Kinase 277 U/L (55-170) H 07/27/17 14:37 CK-MB (Mass) 9.52 ng/mL (0.0-3.38) H 07/27/17 14:37 Troponin I 0.0420 ng/mL (0.00-0.120) 07/27/17 14:37 Total Protein 7.8 g/dL (6.3-8.3) 07/26/17 14:06 Albumin 3.1 g/dL (3.5-5.0) L 07/26/17 14:06 Globulin 4.7 gm/dL (2.2-3.9) H 07/26/17 14:06 Albumin/Globulin Ratio 0.6 (1.0-2.1) L 07/26/17 14:06 Amylase 74 U/L (30-110) 07/28/17 00:13 Lipase 38 U/L (23-300) 07/28/17 00:13 - Hospital Course Hospital Course: 47 y/o male with PMHx of liver cirrhosis, DM, HTN, and ESRD on Dialysis, admitted for abdominal pain, distention/ ascitis s/p paracentesis, 5.9 lit removed Pt had HD today bp- stable Pt is stable for discharge home today and f/u with me in office in 1 week and continue HD as scheduled Discharge plan discussed with patient who understands and agrees with plan Pateint instructed to returns to ED if symptoms returns or any other concerning symptoms Discharge Exam - Head Exam Head Exam: ATRAUMATIC, NORMAL INSPECTION, NORMOCEPHALIC Discharge Plan - Discharge Medications Prescriptions: Spironolactone [Aldactone] 50 mg PO QPM #30 tab cloNIDine 0.3 mg/24 hr [catapres-TTS3 0.3 mg/24 hr] 1 patch TD Q7D@1000 30 Days patch Losartan [Cozaar] 100 mg PO DAILY #30 tab Vitamin B Complex/Vit C/Folic [Nephro-Juan Manuel] 1 tab PO 0800 #30 tab amLODIPine [Norvasc] 10 mg PO DAILY #30 tab Calcium Acetate [Phoslo] 2,001 mg PO BIDCC #90 tab - Follow Up Plan Condition: STABLE Disposition: HOME/ ROUTINE Instructions: Heart Failure (DC), Cirrhosis (DC), Dialysis Diet (DC), Meal Planning with Diabetes Exchanges (DC), Chronic Hypertension (DC), Abdominal Paracentesis (DC), Ascites (DC), Low Sodium Diet (DC), End Stage Kidney Disease (DC) Additional Instructions: Please f/u with Dr. Natarajan office in 1 week Continue HD as scheduled , T, TH,SAT Continue medication as per med. REC. 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 Referrals: Siva Natarajan MD [Staff Provider] - 1 Week
--- NOTE | 2017-08-01 11:31 | PN ---
DATE: LOCATION: Room 656, bed A. SUBJECTIVE: This is a 47-year-old male post abdominal paracentesis, seen and examined in rounds without significant clinical changes, but with less abdominal distention. The entire chart is reviewed including, but not limited to, the most recent lab and radiology study results, current and the previous medication list, current and the previous medical events, and the patient still has intermittent diarrhea with complaint of abdominal pain with slight shortness of breath, had been on hemodialysis. Most recent lab result showed today hemoglobin of 10.3, hematocrit 31.4 with normal platelet count and blood glucose level, but the patient still has low calcium level of 7.1. PHYSICAL EXAMINATION: GENERAL: A 47-year-old male with less complaint of abdominal pain and abdominal distention. VITAL SIGNS: Afebrile with pulse of 74, respiratory rate of 18 to 20, and blood pressure of 150/92. HEENT: Showed pale and dry oral mucous membrane. Nonicteric sclerae. LUNGS: A few scattered crepitation. Decreased air entry at bases. HEART: Positive S1 and S2. ABDOMEN: Soft, bowel sounds are present with mild generalized tenderness. No mass or organomegaly. No rebound tenderness or guarding. EXTREMITIES: With mild edematous changes. No clubbing or cyanosis. NEUROLOGIC: No reported neurological deficits, sensory or motor. No focal deficit. It has to be mentioned that despite the patient still having some ascitic fluid but abdominal distention is much less than before. IMPRESSION: 1. Liver cirrhosis, portal hypertension with refractory ascites. 2. Chronic renal disease, on hemodialysis. 3. Known history of, but not limited to, hyperlipidemia, poorly controlled hypertension with congestive heart failure. 4. Known history of chronic obstructive pulmonary disease. 5. Known history of peripheral edema syndrome, slightly improving. SUGGESTION: 1. Continue current management. 2. Guaiac of the stool daily x3. Give the patient subsequent hemoglobin and hematocrit. 3. Correct any underlying electrolyte imbalance. 4. No need for aggressive GI workup, awaiting cancer marker report. Geno Shen MD
--- NOTE | 2017-08-01 16:52 | CARD ---
APPROVED REPORT EKG Measurement Heart [id number] SD [id number] <Conclusion> Normal sinus rhythm Normal ECG
== END 2017-07-31 17:52 | disposition home or self-care (01) | DRG 432 ==
LOC: C.ER 12:32 → C.9E 15:19 → C.6T 21:23
PROVIDERS: ADMIT Internal Medicine; ATTEND Internal Medicine
PROC: 5A1D70Z Performance of Urinary Filtration, Intermittent, Less than 6 Hours Per Day (ICD-10-PCS; 2017-07-26)
PROC: 5A1D70Z Performance of Urinary Filtration, Intermittent, Less than 6 Hours Per Day (ICD-10-PCS; 2017-07-27)
PROC: 0W9G3ZZ Drainage of Peritoneal Cavity, Percutaneous Approach (ICD-10-PCS; principal; 2017-07-30)
PROC: BW40ZZZ Ultrasonography of Abdomen (ICD-10-PCS; 2017-07-30)
PROC: 5A1D70Z Performance of Urinary Filtration, Intermittent, Less than 6 Hours Per Day (ICD-10-PCS; 2017-07-31)
DX: K70.31 Alcoholic cirrhosis of liver with ascites (principal); N18.6 End stage renal disease; I13.2 Hypertensive heart and chronic kidney disease with heart failure and with stage 5 chronic kidney disease, or end stage renal disease; E11.22 Type 2 diabetes mellitus with diabetic chronic kidney disease; K76.6 Portal hypertension; E83.39 Other disorders of phosphorus metabolism; N25.81 Secondary hyperparathyroidism of renal origin; D64.9 Anemia, unspecified; E78.00 Pure hypercholesterolemia, unspecified; E78.5 Hyperlipidemia, unspecified; H54.62 Unqualified visual loss, left eye, normal vision right eye; I50.9 Heart failure, unspecified; J44.9 Chronic obstructive pulmonary disease, unspecified; F10.21 Alcohol dependence, in remission; Z99.2 Dependence on renal dialysis